=== PATIENT | female | born 1935 | race Caucasian/White ===

== ENCOUNTER → 2016-08-08 | Outpatient (CLI) | payer OTHER, BC ==
[~2016-08-08] MED LIST: ADULT LOW DOSE81 MG PO; CALCIUM 600 +1 EA15 PO; CALCIUM OR; COMBIVENT IN; COUMADIN PO; DIGOXIN125 MCG PO; DILTIAZEM 24HR360 M1 PO; DUONEB 2.5-0.5 M3 ML INH; ELIQUIS5 MG PO; FISH OIL 1,0001 EAC5 PO; FISH OIL500 M1 PO; FISHOIL PO; FLONASE 0.05%50 MCG NASAL; HYDREA 500 MG500 M1 PO; HYDROCHLOROTH12.5 MG PO; KEFLEX500 MG PO; LIPITOR10 MG PO; LIPITOR80 MG PO; LOPRESSOR25 PO; LOVENOX SQ; METHIMAZOLE5 MG PO; MIRALAX OR; MUCINEX TA600 MG/TA2 PO; NEXIUM40 MG PO; NYSTATIN SWISH PO; OMEPRAZOLE40 MG PO; PERFOROMIS20 MCG/2 M IH; PRADAXA150 MG PO; PROLASTIN IV; PROLIA60 MG/1 ML SQ; PULMICORT0.5 MG/2 M IH; RECLAST 55 MG/100 M IV; RECLAST IV; TAPAZOLE5 MG PO; TAZTIA XT360 MG PO; TOBREX5 ML OP; ULTRAM 50MG TAB50 MG PO; VENTOLIN HFA 1818 GM INH; VITAMIN B; VITAMIN D 5050000 I1 PO; XANAX 0.25 MG0.25 MG PO; ZANTAC 150MG T150 MG PO
[2016-08-08 08:00] VITALS: BP 110/72
== END ==
LOC: OPONC 02:03
DX: E88.01 Alpha-1-antitrypsin deficiency (principal)
CPT/HCPCS: 95000

== ENCOUNTER → 2016-08-22 | Outpatient (CLI) | payer OTHER, BC ==
[2016-08-22 08:00] VITALS: BP 125/77
== END ==
LOC: OPONC 03:06
DX: E88.01 Alpha-1-antitrypsin deficiency (principal)
CPT/HCPCS: 95000

== ENCOUNTER → 2016-08-29 | Outpatient (CLI) | payer OTHER, BC ==
[2016-08-29 07:42] VITALS: BP 125/74
== END ==
LOC: OPONC 02:06
DX: E88.01 Alpha-1-antitrypsin deficiency (principal)
CPT/HCPCS: 95000

== ENCOUNTER → 2016-10-17 | Outpatient (CLI) | payer OTHER, BC | LOC: OPONC 08:05 | DX: E88.01 Alpha-1-antitrypsin deficiency (principal) | CPT/HCPCS: 95000 ==

== ENCOUNTER → 2016-10-24 | Outpatient (CLI) | payer OTHER, BC ==
[2016-10-24 07:35] VITALS: BP 123/81
== END ==
LOC: OPONC 12:54
DX: E88.01 Alpha-1-antitrypsin deficiency (principal)
CPT/HCPCS: 95000

== ENCOUNTER → 2016-10-31 | Outpatient (CLI) | payer OTHER, BC ==
[~2016-10-31] MED LIST changes: +ALDACTONE25 MG PO; +LASIX 40 MG TAB40 M2 PO
[2016-10-31 07:15] VITALS: BP 131/68
== END ==
LOC: OPONC 07:07
DX: E88.01 Alpha-1-antitrypsin deficiency (principal)
CPT/HCPCS: 95000

== ENCOUNTER → 2016-11-08 | Outpatient (CLI) | payer OTHER, BC ==
[~2016-11-08] MED LIST changes: -LASIX 40 MG TAB40 M2 PO
[2016-11-08 09:01] VITALS: BP 112/55
== END ==
LOC: OPONC 10-31 12:58
DX: E88.01 Alpha-1-antitrypsin deficiency (principal)
CPT/HCPCS: 95000

== ENCOUNTER → 2016-11-14 | Outpatient (CLI) | payer OTHER, BC ==
[~2016-11-14] MED LIST changes: +LASIX 40 MG TAB40 M2 PO
[2016-11-14 07:30] VITALS: BP 114/52
== END ==
LOC: OPONC 06:25
DX: E88.01 Alpha-1-antitrypsin deficiency (principal)
CPT/HCPCS: 95000

== ENCOUNTER → 2016-11-19 | Outpatient (CLI) | payer OTHER, BC ==
[2016-11-19 07:34] VITALS: BP 124/49
== END ==
LOC: OPONC 06:45
DX: E88.01 Alpha-1-antitrypsin deficiency (principal)
CPT/HCPCS: 95000

== ENCOUNTER → 2016-11-28 | Outpatient (CLI) | payer OTHER, BC ==
[~2016-11-28] MED LIST changes: +DILTIAZEM 24HR180 M2 PO
[2016-11-28 07:38] VITALS: BP 94/60
[2016-11-28 08:30] VITALS: BP 110/60
== END ==
LOC: OPONC 06:15
DX: E88.01 Alpha-1-antitrypsin deficiency (principal)
CPT/HCPCS: 95000

== ENCOUNTER → 2016-12-05 | Outpatient (CLI) | payer OTHER, BC ==
[2016-12-05 07:20] VITALS: BP 91/58
== END ==
LOC: OPONC 07:08
DX: E88.01 Alpha-1-antitrypsin deficiency (principal)
CPT/HCPCS: 95000

== ENCOUNTER → 2016-12-11 | Outpatient (CLI) | payer OTHER, BC ==
[2016-12-11 08:15] VITALS: BP 112/65
== END ==
LOC: OPONC 08-15 13:00
DX: E88.01 Alpha-1-antitrypsin deficiency (principal)
CPT/HCPCS: 95000

== ENCOUNTER → 2016-12-19 | Outpatient (CLI) | payer OTHER, BC ==
[2016-12-19 07:30] VITALS: BP 111/47
== END ==
LOC: OPONC 09-05 13:25
DX: E88.01 Alpha-1-antitrypsin deficiency (principal)
CPT/HCPCS: 95000

== ENCOUNTER → 2016-12-26 | Outpatient (CLI) | payer OTHER, BC ==
[2016-12-26 08:14] VITALS: BP 104/65
== END ==
LOC: OPONC 06:58
DX: E88.01 Alpha-1-antitrypsin deficiency (principal)
CPT/HCPCS: 95000; 95001

== ENCOUNTER → 2017-01-02 | Outpatient (CLI) | payer OTHER, BC ==
[2017-01-02 07:25] VITALS: BP 108/57
== END ==
LOC: OPONC 12-26 09:23
DX: E88.01 Alpha-1-antitrypsin deficiency (principal)
CPT/HCPCS: 95000

== ENCOUNTER → 2017-01-09 | Outpatient (CLI) | payer OTHER, BC ==
[2017-01-09 07:25] VITALS: BP 104/51
== END ==
LOC: OPONC 09-26 13:33
DX: E88.01 Alpha-1-antitrypsin deficiency (principal)
CPT/HCPCS: 95000

== ENCOUNTER → 2017-01-16 | Outpatient (CLI) | payer OTHER, BC ==
[2017-01-16 07:38] VITALS: BP 96/50
== END ==
LOC: OPONC 02:37
DX: E88.01 Alpha-1-antitrypsin deficiency (principal)
CPT/HCPCS: 95000

== ENCOUNTER → 2017-01-23 | Outpatient (CLI) | payer OTHER, BC ==
[2017-01-23 07:43] VITALS: BP 93/52
== END ==
LOC: OPONC 01:42
DX: E88.01 Alpha-1-antitrypsin deficiency (principal)
CPT/HCPCS: 95000

== ENCOUNTER → 2017-01-30 | Outpatient (CLI) | payer OTHER, BC ==
[2017-01-30 07:42] VITALS: BP 109/53
== END ==
LOC: OPONC 00:38
DX: E88.01 Alpha-1-antitrypsin deficiency (principal)
CPT/HCPCS: 95000

== ENCOUNTER → 2017-02-06 | Outpatient (CLI) | payer OTHER, BC ==
[2017-02-06 07:30] VITALS: BP 99/48
== END ==
LOC: OPONC 01:36
DX: E88.01 Alpha-1-antitrypsin deficiency (principal)
CPT/HCPCS: 95000

== ENCOUNTER → 2017-02-13 | Outpatient (CLI) | payer OTHER, BC ==
[2017-02-13 08:00] VITALS: BP 100/54
== END ==
LOC: OPONC 02:34
DX: E88.01 Alpha-1-antitrypsin deficiency (principal)
CPT/HCPCS: 95000

== ENCOUNTER → 2017-02-20 | Outpatient (CLI) | payer OTHER, BC ==
[2017-02-20 07:37] VITALS: BP 93/51
== END ==
LOC: OPONC 00:37
DX: E88.01 Alpha-1-antitrypsin deficiency (principal); J43.9 Emphysema, unspecified
CPT/HCPCS: 95000

== ENCOUNTER → 2017-02-27 | Outpatient (CLI) | payer OTHER, BC ==
[2017-02-27 07:30] VITALS: BP 105/51
== END ==
LOC: OPONC 08:27
DX: E88.01 Alpha-1-antitrypsin deficiency (principal)
CPT/HCPCS: 95000

== ENCOUNTER → 2017-03-06 | Outpatient (CLI) | payer OTHER, BC ==
[2017-03-06 07:30] VITALS: BP 110/48
== END ==
LOC: OPONC 07:35
DX: E88.01 Alpha-1-antitrypsin deficiency (principal)
CPT/HCPCS: 95000

== ENCOUNTER → 2017-03-13 | Outpatient (CLI) | payer OTHER, BC ==
[2017-03-13 07:25] VITALS: BP 90/53
== END ==
LOC: OPONC 00:53
DX: E88.01 Alpha-1-antitrypsin deficiency (principal)
CPT/HCPCS: 95000

== ENCOUNTER → 2017-03-20 | Outpatient (CLI) | payer OTHER, BC ==
[2017-03-20 08:26] VITALS: BP 107/47
== END ==
LOC: OPONC 00:49
DX: E88.01 Alpha-1-antitrypsin deficiency (principal)
CPT/HCPCS: 95000

== ENCOUNTER → 2017-03-27 | Outpatient (CLI) | payer OTHER, BC ==
[2017-03-27 08:10] VITALS: BP 118/59
== END ==
LOC: OPONC 00:15
DX: E88.01 Alpha-1-antitrypsin deficiency (principal)
CPT/HCPCS: 95000

== ENCOUNTER → 2017-04-03 | Outpatient (CLI) | payer OTHER, BC ==
[2017-04-03 08:15] VITALS: BP 121/64
== END ==
LOC: OPONC 00:18
DX: E88.01 Alpha-1-antitrypsin deficiency (principal)
CPT/HCPCS: 95000

== ENCOUNTER → 2017-04-10 | Outpatient (CLI) | payer OTHER, BC | LOC: OPONC 08:40 | DX: E88.01 Alpha-1-antitrypsin deficiency (principal) | CPT/HCPCS: 95000 ==

== ENCOUNTER → 2017-04-17 | Outpatient (CLI) | payer OTHER, BC ==
[2017-04-17 08:15] VITALS: BP 111/51
== END ==
LOC: OPONC 07:04
DX: E88.01 Alpha-1-antitrypsin deficiency (principal)
CPT/HCPCS: 95000

== ENCOUNTER → 2017-04-24 | Outpatient (CLI) | payer OTHER, BC ==
[2017-04-24 08:00] VITALS: BP 88/56
== END ==
LOC: OPONC 01:14
DX: E88.01 Alpha-1-antitrypsin deficiency (principal)
CPT/HCPCS: 95000

== ENCOUNTER → 2017-05-01 | Outpatient (CLI) | payer OTHER, BC ==
[2017-05-01 08:30] VITALS: BP 88/46
== END ==
LOC: OPONC 01:22
DX: E88.01 Alpha-1-antitrypsin deficiency (principal)
CPT/HCPCS: 95000

== ENCOUNTER → 2017-05-08 | Outpatient (CLI) | payer OTHER, BC ==
[2017-05-08 08:00] VITALS: BP 106/50
== END ==
LOC: OPONC 00:42
DX: E88.01 Alpha-1-antitrypsin deficiency (principal)
CPT/HCPCS: 95000

== ENCOUNTER → 2017-05-14 | Outpatient (CLI) | payer OTHER, BC ==
[2017-05-14 08:30] VITALS: BP 126/60
== END ==
LOC: OPONC 00:30
DX: E88.01 Alpha-1-antitrypsin deficiency (principal)
CPT/HCPCS: 95000

== ENCOUNTER → 2017-05-21 | Outpatient (CLI) | payer OTHER, BC ==
[2017-05-21 08:10] VITALS: BP 108/60
== END ==
LOC: OPONC 02:14
DX: E88.01 Alpha-1-antitrypsin deficiency (principal)
CPT/HCPCS: 95000

== ENCOUNTER → 2017-05-31 | Outpatient (CLI) | payer OTHER, BC ==
[2017-05-31 08:25] VITALS: BP 110/60
== END ==
LOC: OPONC 05-30 13:42
DX: E88.01 Alpha-1-antitrypsin deficiency (principal)
CPT/HCPCS: 95000

== ENCOUNTER → 2017-06-05 | Outpatient (CLI) | payer OTHER, BC ==
[2017-06-05 08:30] VITALS: BP 116/75
== END ==
LOC: OPONC 00:18
DX: E88.01 Alpha-1-antitrypsin deficiency (principal)
CPT/HCPCS: 95000

== ENCOUNTER → 2017-06-26 | Outpatient (CLI) | payer OTHER, BC ==
[2017-06-26 08:05] VITALS: BP 103/56
== END ==
LOC: OPONC 01:02
DX: E88.01 Alpha-1-antitrypsin deficiency (principal)
CPT/HCPCS: 95000

== ENCOUNTER → 2017-07-03 | Outpatient (CLI) | payer OTHER, BC ==
[2017-07-03 08:10] VITALS: BP 114/56
== END ==
LOC: OPONC 00:14
DX: E88.01 Alpha-1-antitrypsin deficiency (principal)
CPT/HCPCS: 95000

== ENCOUNTER → 2017-07-17 | Outpatient (CLI) | payer OTHER, BC ==
[2017-07-17 08:23] VITALS: BP 107/53
== END ==
LOC: OPONC 00:13
DX: E88.01 Alpha-1-antitrypsin deficiency (principal); J43.8 Other emphysema
CPT/HCPCS: 95000

== ENCOUNTER → 2017-07-24 | Outpatient (CLI) | payer OTHER, BC ==
[2017-07-24 08:45] VITALS: BP 109/64
== END ==
LOC: OPONC 00:17
DX: E88.01 Alpha-1-antitrypsin deficiency (principal); J43.8 Other emphysema
CPT/HCPCS: 95000

== ENCOUNTER → 2017-07-31 | Outpatient (CLI) | payer OTHER, BC ==
[~2017-07-31] MED LIST changes: -ALDACTONE25 MG PO; +MIRALAX17 GM PO; +SPIRONOLACTONE25 M1 PO
[2017-07-31 08:20] VITALS: BP 120/64
== END ==
LOC: OPONC 00:14
DX: E88.01 Alpha-1-antitrypsin deficiency (principal); J43.8 Other emphysema
CPT/HCPCS: 95000

== ENCOUNTER → 2017-08-07 | Outpatient (CLI) | payer OTHER, BC ==
[2017-08-07 08:20] VITALS: BP 128/61
== END ==
LOC: OPONC 01:25
DX: E88.01 Alpha-1-antitrypsin deficiency (principal); J43.8 Other emphysema
CPT/HCPCS: 95000

== ENCOUNTER → 2017-08-14 | Outpatient (CLI) | payer OTHER, BC ==
[2017-08-14 08:22] VITALS: BP 120/56
== END ==
LOC: OPONC
DX: E88.01 Alpha-1-antitrypsin deficiency (principal); J43.8 Other emphysema
CPT/HCPCS: 95000; 95113

== ENCOUNTER → 2017-08-21 | Outpatient (CLI) | payer OTHER, BC ==
[2017-08-21 08:20] VITALS: BP 123/58
== END ==
LOC: OPONC 01:00
DX: E88.01 Alpha-1-antitrypsin deficiency (principal); J43.8 Other emphysema
CPT/HCPCS: 95000

== ENCOUNTER → 2017-08-28 | Outpatient (CLI) | payer OTHER, BC ==
[2017-08-28 08:10] VITALS: BP 102/57
== END ==
LOC: OPONC 00:34
DX: E88.01 Alpha-1-antitrypsin deficiency (principal); J43.8 Other emphysema
CPT/HCPCS: 95000

== ENCOUNTER → 2017-09-04 | Outpatient (CLI) | payer OTHER, BC ==
[2017-09-04 08:35] VITALS: BP 115/44
== END ==
LOC: OPONC 02:05
DX: E88.01 Alpha-1-antitrypsin deficiency (principal); J43.8 Other emphysema
CPT/HCPCS: 95000

== ENCOUNTER → 2017-09-11 | Outpatient (CLI) | payer OTHER, BC ==
[2017-09-11 08:10] VITALS: BP 98/53
== END ==
LOC: OPONC 02:16
DX: E88.01 Alpha-1-antitrypsin deficiency (principal); J43.8 Other emphysema
CPT/HCPCS: 95000

== ENCOUNTER → 2017-09-18 | Outpatient (CLI) | payer OTHER, BC ==
[2017-09-18 08:10] VITALS: BP 132/61
== END ==
LOC: OPONC 00:46
DX: E88.01 Alpha-1-antitrypsin deficiency (principal); J43.8 Other emphysema
CPT/HCPCS: 95000

== ENCOUNTER → 2017-09-25 | Outpatient (CLI) | payer OTHER, BC | LOC: OPONC 00:16 | DX: E88.01 Alpha-1-antitrypsin deficiency (principal) | CPT/HCPCS: 95000 ==

== ENCOUNTER → 2017-10-02 | Outpatient (CLI) | payer OTHER, BC ==
[2017-10-02 08:25] VITALS: BP 98/60
== END ==
LOC: OPONC 01:41
DX: E88.01 Alpha-1-antitrypsin deficiency (principal)
CPT/HCPCS: 95000

== ENCOUNTER → 2017-10-10 | Outpatient (CLI) | payer OTHER, BC ==
[2017-10-10 08:30] VITALS: BP 110/55
== END ==
LOC: OPONC 01:41
DX: E88.01 Alpha-1-antitrypsin deficiency (principal)
CPT/HCPCS: 95000

== ENCOUNTER → 2017-10-16 | Outpatient (CLI) | payer OTHER, BC ==
[2017-10-16 08:20] VITALS: BP 106/55
== END ==
LOC: OPONC 08:20
DX: E88.01 Alpha-1-antitrypsin deficiency (principal)
CPT/HCPCS: 95000

== ENCOUNTER → 2017-10-23 | Outpatient (CLI) | payer OTHER, BC ==
[2017-10-23 08:06] VITALS: BP 108/74
== END ==
LOC: OPONC 00:51
DX: E88.01 Alpha-1-antitrypsin deficiency (principal)
CPT/HCPCS: 95000

== ENCOUNTER → 2017-10-30 | Outpatient (CLI) | payer OTHER, BC ==
[2017-10-30 08:15] VITALS: BP 121/79
== END ==
LOC: OPONC 00:15
DX: E88.01 Alpha-1-antitrypsin deficiency (principal)
CPT/HCPCS: 95000

== ENCOUNTER → 2017-11-06 | Outpatient (CLI) | payer OTHER, BC ==
[~2017-11-06] MED LIST changes: +ALDACTONE25 MG PO; -MIRALAX17 GM PO; -SPIRONOLACTONE25 M1 PO
[2017-11-06 08:18] VITALS: BP 124/57
== END ==
LOC: OPONC 00:26
DX: E88.01 Alpha-1-antitrypsin deficiency (principal)
CPT/HCPCS: 95000

== ENCOUNTER → 2017-11-13 | Outpatient (CLI) | payer OTHER, BC ==
[2017-11-13 08:20] VITALS: BP 108/59
== END ==
LOC: OPONC 00:42
DX: E88.01 Alpha-1-antitrypsin deficiency (principal)
CPT/HCPCS: 95000

== ENCOUNTER → 2017-11-18 | Outpatient (CLI) | payer OTHER, BC ==
[2017-11-18 08:20] VITALS: BP 112/63
== END ==
LOC: OPONC 01:52
DX: E88.01 Alpha-1-antitrypsin deficiency (principal)
CPT/HCPCS: 95000

== ENCOUNTER → 2017-11-26 | Outpatient (CLI) | payer OTHER, BC ==
[2017-11-26 08:51] VITALS: BP 121/88
== END ==
LOC: OPONC 00:33
DX: E88.01 Alpha-1-antitrypsin deficiency (principal)
CPT/HCPCS: 95000

== ENCOUNTER → 2017-12-11 | Outpatient (CLI) | payer OTHER, BC ==
[2017-12-11 08:10] VITALS: BP 110/56
== END ==
LOC: OPONC 00:15
DX: E88.01 Alpha-1-antitrypsin deficiency (principal)
CPT/HCPCS: 95000

== ENCOUNTER → 2017-12-25 | Outpatient (CLI) | payer OTHER, BC ==
[2017-12-25 07:40] VITALS: BP 113/57
== END ==
LOC: OPONC 00:14
DX: E88.01 Alpha-1-antitrypsin deficiency (principal)
CPT/HCPCS: 95000

== ENCOUNTER → 2018-01-01 | Outpatient (CLI) | payer OTHER, BC ==
[2018-01-01 08:15] VITALS: BP 101/65
== END ==
LOC: OPONC 00:19
DX: E88.01 Alpha-1-antitrypsin deficiency (principal)
CPT/HCPCS: 95000

== ENCOUNTER → 2018-01-08 | Outpatient (CLI) | payer OTHER, BC ==
[2018-01-08 08:00] VITALS: BP 116/59
== END ==
LOC: OPONC 08:45
DX: E88.01 Alpha-1-antitrypsin deficiency (principal)
CPT/HCPCS: 95000

== ENCOUNTER → 2018-01-15 | Outpatient (CLI) | payer OTHER, BC ==
[2018-01-15 08:11] VITALS: BP 115/61
== END ==
LOC: OPONC 07:46
DX: E88.01 Alpha-1-antitrypsin deficiency (principal)
CPT/HCPCS: 95000

== ENCOUNTER → 2018-01-22 | Outpatient (CLI) | payer OTHER, BC ==
[2018-01-22 08:05] VITALS: BP 117/54
== END ==
LOC: OPONC 01:26
DX: E88.01 Alpha-1-antitrypsin deficiency (principal)
CPT/HCPCS: 95000

== ENCOUNTER → 2018-01-29 | Outpatient (CLI) | payer OTHER, BC ==
[2018-01-29 07:55] VITALS: BP 121/80
== END ==
LOC: OPONC 01:00
DX: E88.01 Alpha-1-antitrypsin deficiency (principal)
CPT/HCPCS: 95000

== ENCOUNTER → 2018-03-12 | Outpatient (CLI) | payer OTHER, BC ==
[2018-03-12 08:35] VITALS: BP 129/56
== END ==
LOC: OPONC 01:11
DX: E88.01 Alpha-1-antitrypsin deficiency (principal)
CPT/HCPCS: 95000

== ENCOUNTER → 2018-03-19 | Outpatient (CLI) | payer OTHER, BC ==
[~2018-03-19] MED LIST changes: -ALDACTONE25 MG PO; +MIRALAX17 GM PO; +SPIRONOLACTONE25 M1 PO
[2018-03-19 08:10] VITALS: BP 126/62
== END ==
LOC: OPONC 02:56
DX: E88.01 Alpha-1-antitrypsin deficiency (principal)
CPT/HCPCS: 95000

== ENCOUNTER → 2018-04-23 | Outpatient (CLI) | payer OTHER, BC ==
[2018-04-23 08:20] VITALS: BP 132/60
== END ==
LOC: OPONC 00:26 → EDSTATUS 08:25 → OPONC 13:08
DX: E88.01 Alpha-1-antitrypsin deficiency (principal)
CPT/HCPCS: 95000

== ENCOUNTER → 2018-04-30 | Outpatient (CLI) | payer OTHER, BC ==
[2018-04-30 08:24] VITALS: BP 92/62
== END ==
LOC: OPONC 00:13
DX: E88.01 Alpha-1-antitrypsin deficiency (principal)
CPT/HCPCS: 95000

== ENCOUNTER → 2018-05-07 | Outpatient (CLI) | payer OTHER, BC ==
[2018-05-07 08:15] VITALS: BP 122/57
== END ==
LOC: OPONC 07:55
DX: E88.01 Alpha-1-antitrypsin deficiency (principal)
CPT/HCPCS: 95000

== ENCOUNTER → 2018-05-14 | Outpatient (CLI) | payer OTHER, BC ==
[2018-05-14 08:00] VITALS: BP 116/53
== END ==
LOC: OPONC 00:25
DX: E88.01 Alpha-1-antitrypsin deficiency (principal)
CPT/HCPCS: 95000

== ENCOUNTER → 2018-05-21 | Outpatient (CLI) | payer OTHER, BC ==
[2018-05-21 08:15] VITALS: BP 134/61
== END ==
LOC: OPONC 00:53
DX: E88.01 Alpha-1-antitrypsin deficiency (principal)
CPT/HCPCS: 95000

== ENCOUNTER → 2018-05-27 | Outpatient (CLI) | payer OTHER, BC | LOC: ULTRA 07:40 | DX: N28.1 Cyst of kidney, acquired (principal); D73.89 Other diseases of spleen; K76.89 Other specified diseases of liver; N85.8 Other specified noninflammatory disorders of uterus ==

== ENCOUNTER → 2018-05-28 | Outpatient (CLI) | payer OTHER, BC ==
[2018-05-28 08:20] VITALS: BP 127/57
== END ==
LOC: OPONC 00:21
DX: E88.01 Alpha-1-antitrypsin deficiency (principal)
CPT/HCPCS: 95000

== ENCOUNTER → 2018-06-04 | Outpatient (CLI) | payer OTHER, BC ==
[2018-06-04 08:07] VITALS: BP 129/54
== END ==
LOC: OPONC 00:54
DX: E88.01 Alpha-1-antitrypsin deficiency (principal)
CPT/HCPCS: 95000

== ENCOUNTER → 2018-06-11 | Outpatient (CLI) | payer OTHER, BC ==
[2018-06-11 08:05] VITALS: BP 108/60
== END ==
LOC: OPONC 02:43
DX: E88.01 Alpha-1-antitrypsin deficiency (principal)
CPT/HCPCS: 95000

== ENCOUNTER → 2018-06-18 | Outpatient (CLI) | payer OTHER, BC | LOC: OPONC 01:05 | DX: E88.01 Alpha-1-antitrypsin deficiency (principal) | CPT/HCPCS: 95000 ==

== ENCOUNTER → 2018-06-25 | Outpatient (CLI) | payer OTHER, BC ==
[2018-06-25 08:11] VITALS: BP 103/52
== END ==
LOC: OPONC 07:59
DX: E88.01 Alpha-1-antitrypsin deficiency (principal)
CPT/HCPCS: 95000

== ENCOUNTER → 2018-07-01 | Outpatient (CLI) | payer OTHER, BC ==
[2018-07-01 08:40] VITALS: BP 129/57
== END ==
LOC: OPONC 08:26
DX: E88.01 Alpha-1-antitrypsin deficiency (principal)
CPT/HCPCS: 95000

== ENCOUNTER → 2018-07-09 | Outpatient (CLI) | payer OTHER, BC ==
[2018-07-09 08:15] VITALS: BP 116/52
== END ==
LOC: OPONC 00:22
DX: E88.01 Alpha-1-antitrypsin deficiency (principal)
CPT/HCPCS: 95000

== ENCOUNTER → 2018-07-16 | Outpatient (CLI) | payer OTHER, BC ==
[2018-07-16 08:20] VITALS: BP 125/49
== END ==
LOC: OPONC 00:46
DX: E88.01 Alpha-1-antitrypsin deficiency (principal)
CPT/HCPCS: 95000

== ENCOUNTER → 2018-07-23 | Outpatient (CLI) | payer OTHER, BC ==
[2018-07-23 08:06] VITALS: BP 131/65
== END ==
LOC: OPONC 07:31
DX: E88.01 Alpha-1-antitrypsin deficiency (principal)
CPT/HCPCS: 95000

== ENCOUNTER → 2018-07-30 | Outpatient (CLI) | payer OTHER, BC ==
[2018-07-30 08:10] VITALS: BP 117/73
--- NOTE | 2018-07-30 09:05 | NUR ---
HERE FOR WEEKLY PROLASTIN C INFUSION. REPORTS DOING THE SAME. DID USE HER VEST AND NEBULIZER TODAY PRIOR TO ARRIVAL. REPORTS LOTS OF MUCOUS PRODUCTION AND NEED TO CLEAR THIS IN THE MORNINGS THEN REST OF THE DAY IS BETTER. DYSPNEIC UPON ARRIVAL HAVING WALKED IN WITHOUT O2. SAT ONLY 80% BUT QUICKLY RECOVERED ON 2L. ENCOURAGED PT TO START TRAVELING WITH HER O2. STATES SHE IS GETTING A NEW PORTABLE TANK SYSTEM SOON WHICH WILL MAKE THIS EASIER BUT ADMITS TO NOT WANTING TO TAKE THIS NEXT STEP WHERE SHE NEEDS TO TAKE O2 WITH HER EVERYWHERE SHE GOES. A LITTLE TEARY THIS MORNING TALKING ABOUT HER SERGE GATHERING WITH HER FAMILY AND HOW SHE FELT THAT IT WOULD BE HER LAST. MUCH SUPPORT SHARED. PT TOLERATED INFUSION WITHOUT INCIDENT AND DISMISSED IN STABLE CONDITION. SCHEDULED TO RETURN AGAIN NEXT WEEK.
== END ==
LOC: OPONC 00:17
DX: E88.01 Alpha-1-antitrypsin deficiency (principal)
CPT/HCPCS: 95000

== ENCOUNTER → 2018-08-06 | Outpatient (CLI) | payer OTHER, BC ==
[2018-08-06 08:20] VITALS: BP 128/50
--- NOTE | 2018-08-06 09:00 | NUR ---
HERE FOR WEEKLY PROLASTIN C INFUSION. REPORTS DOING THE SAME, NO NEW CONCERNS. USING VEST AND NEBULIZER, WEARING O2 ALL NIGHT AND AT TIMES DURING THE DAY. ARRIVED TODAY WITHOUT O2 AND RECOVERED QUICKLY ON ROOM AIR TO 94% AT REST. TOLERATED INFUSION WITHOUT INCIDENT. DISMISSED IN STABLE CONDITION. WILL RETURN AGAIN NEXT WEEK.
== END ==
LOC: OPONC 01:12
DX: E88.01 Alpha-1-antitrypsin deficiency (principal)
CPT/HCPCS: 95000

== ENCOUNTER → 2018-08-13 | Outpatient (CLI) | payer OTHER, BC ==
[2018-08-13 08:30] VITALS: BP 107/50
--- NOTE | 2018-08-13 09:28 | NUR ---
HERE FOR WEEKLY PROLASTIN C INFUSION. REPORTS DOING THE SAME. STILL WITH EXERTIONAL DYSPNEA, USING HER PORTABLE O2 NOW AT 2L WHEN GETTING OUT OF THE HOUSE. USES O2 AT NIGHT TO SLEEP WELL. USES NEBULIZER AND VIBRATION VEST WHICH HELPS IN THE MORNING TO CLEAR MUCOUS BUILD UP. TOLERATED INFUSION TODAY WITHOUT INCIDENT. DISMISSED IN STABLE CONDITION.
== END ==
LOC: OPONC 08-12 11:36
DX: E88.01 Alpha-1-antitrypsin deficiency (principal)
CPT/HCPCS: 95000

== ENCOUNTER → 2018-08-20 | Outpatient (CLI) | payer OTHER, BC ==
[2018-08-20 08:10] VITALS: BP 120/49
--- NOTE | 2018-08-20 09:00 | NUR ---
HERE FOR WEEKLY PROLASTIN C INFUSION. REPORTS MORE EXERTIONAL DYSPNEA TODAY THAN IN PAST. STATES JUST HARD TO GET GOING IN THE MORNINGS SHE HAS TO CLEAR AIRWAY FROM SLEEPING AT NIGHT. STILL USING VIBRATION VEST, FLUTTER VALVE, NEBULIZER. TRYING TO GET EXERCISES IN. DISCOURAGED AND FRIGHTENED ABOUT WHAT HER FUTURE HOLDS. EMOTIONAL SUPPORT AND ENCOURAGEMENT GIVEN. PT TOLERATED INFUSION WITHOUT INCIDENT. DISMISSED TODAY WITH VOLUNTEER PER WHEELCHAIR. DRIVING PT HOME AFTER [place]ON[employer]DS FOR COFFEE WITH FRIENDS.
== END ==
LOC: OPONC 03:05
DX: E88.01 Alpha-1-antitrypsin deficiency (principal)
CPT/HCPCS: 95000

== ENCOUNTER 2018-08-27 07:01 | Inpatient (IN) | payer OTHER, BC ==
[~2018-08-27] VITALS: Ht 157.5 cm; Wt 47.6 kg
[2018-08-27 07:05] VITALS: BP 168/109
[2018-08-27 07:32] LABS: ABSOLUTE NEUTROPHILS 5.6 thou/uL (1.4-8.2); BASOPHILS 0.7 % (0.0-2.0); EOSINOPHILS 6.1 % (0.0-3.0); HEMATOCRIT 38.4 % (37.0-47.0); HEMOGLOBIN 12.8 gm/dL (12.0-15.0); LYMPHOCYTES 15.6 % (24.0-44.0); MCH 35.7 pg (26.0-34.0); MCHC 33.4 g/dL (28.0-37.0); MCV 106.8 fL (80.0-100.0); MONOCYTES 5.1 % (1.0-8.0); PLATELET COUNT 300 thou/uL (150-400); POLYS 72.5 % (36.0-66.0); RDW 15.8 % (10.5-14.5); WBC 7.7 thou/uL (4.0-11.0)
[2018-08-27 07:46] LABS: ANION GAP 5 mmol/L (7-16); BUN 31 mg/dL (7-18); CHLORIDE 106 mmol/L (98-107); CO2 31 mmol/L (21-32); CREATININE 0.9 mg/dL (0.6-1.0); GLUCOSE 137 mg/dL (74-106); POTASSIUM 4.5 mmol/L (3.5-5.1)
[2018-08-27 07:47] LABS: SODIUM 142 mmol/L (136-145)
[2018-08-27 07:54] LABS: ALBUMIN 3.8 g/dL (3.4-5.0); SGOT 36 U/L (15-37); SGPT 40 U/L (30-65); TOTAL BILIRUBIN 0.5 mg/dL (<0.1-1.0); TOTAL PROTEIN 7.4 g/dL (6.4-8.2); TROPONIN-I <0.06 ng/mL (<0.06)
[2018-08-27 09:01] VITALS: BP 119/53
--- NOTE | 2018-08-27 09:03 | NUR ---
HAND OFF PRINTED TO 4W
--- NOTE | 2018-08-27 09:16 | NUR ---
ADAM CABALLERO RN, STATES SHE DID NOT GET HANDOFF-REFAXED NOW AND REQUESTED SHE CALL SOON SHE RECEIVES IT
[2018-08-27 09:17] LABS: MACROCYTES 2+; POIKILOCYTOSIS SLIGHT; POLYCHROMASIA OCCASIONAL
[2018-08-27 09:18] VITALS: BP 121/61
[2018-08-27] MEDS ORDERED: NORCO 5-325 TA1 EACH PO (09:32)
[2018-08-27] MEDS ORDERED: OMEPRAZOLE40 MG PO (09:32)
[2018-08-27] MEDS ORDERED: CALCITONIN-SAL3.7 ML NASAL (09:33)
[2018-08-27] MEDS ORDERED: PROLASTIN C1000 MG IV (09:39)
[2018-08-27] MEDS ORDERED: TESSALON PERLE100 MG PO (09:40)
[2018-08-27] MEDS ORDERED: DULCOLAX5 MG PO (09:42)
[2018-08-27] MEDS ORDERED: PEPCID20 MG PO (09:43)
[2018-08-27] MEDS ORDERED: CALCIUM WITH V1 EAC1 PO (09:44)
[2018-08-27 09:45] VITALS: BP 137/67
[2018-08-27] MEDS ORDERED: TYLENOL EXTRA500 MG PO (09:45)
--- NOTE | 2018-08-27 12:30 | NUR ---
ASSUMED CARE OF PT AT 09:45. ARRIVED TO UNIT FROM ED IN STABLE CONDITION. JUAN JOSE AT BEDSIDE. ORIENTED TO ROOM AND CALL LIGHT. BELONGINGS DOCUMENTED - CLOTHES, CELL PHONE, AND PURSE THAT WILL TAKE HOME. NO MEDS FROM HOME. ADMISSION ASSESSMENT COMPLETED. A&O,X4. ANXIOUS AND TEARFUL AT TIMES. DENIES PAIN. C/O SOA AND TROUBLE BREATHING AT HOME. [address], HOME OXYGEN USE USUALLY 2 L NC. AUDIBLE WHEEZES AND COUGH NOTED. LUNG SOUNDS WHEEZES AND RHONCHI. REGULAR HEART SOUNDS. ACTIVE BOWEL SOUNDS, LAST BM TODAY BEFORE ADMISSION. SKIN INTACT. PT REPORTS RASH AROUND BRA LINE. NO EDEMA. WILL CONTINUE TO MONITOR.
[2018-08-27 15:25] VITALS: BP 129/77
--- NOTE | 2018-08-27 16:30 | EKG ---
[address] [place] [address] ELECTROCARDIOGRAM REPORT Name: DONALDO DORSEY Room #: 449-I ADM IN M.R.#: [id number] Admission: 08/27/18 Attend Phys: Mark Lee MD Discharge: Date of : 37 Report #: [id number] THIS REPORT FOR: //name// [facility] ED Test Date: 2018-08-27 Test Time: 08:18:01 Pat Name: DONALDO DORSEY Department: Room: [facility] Gender: F Admitting Officer: Radames BRANHAM RN : [id number] Requested By: [place] Order Number: [id number] MD: James Reich Measurements Intervals [place] Rate: 77 P: 154 NV: 208 QRS: 35 QRSD: 94 T: 62 QT: 353 QTc: 400 Interpretive Statements Sinus or ectopic atrial rhythm Ventricular premature complex Low voltage, extremity and precordial leads Compared to ECG 11/24/2012 16:51:26 Electronically Signed On 08-27-2018 16:29:48 [employer] by James Reich [email or web address] <ELECTRONICALLY SIGNED> By: James Reich MD 08/27/18 1629 7 7 James Reich MD /MELLISSA
--- NOTE | 2018-08-27 19:38 | NUR ---
END OF SHIFT. FAMILY AT BEDSIDE THROUGHOUT THE DAY. PT STILL C/O SOA. [address] WHEEZES NOTED. VSS. DENIES PAIN. NO OTHER CHANGE IN STATUS NOTED.
[2018-08-27 21:18] VITALS: BP 121/71
[2018-08-28 04:52] VITALS: BP 141/81
--- NOTE | 2018-08-28 06:55 | NUR ---
Assumed care at 1845. Pt resting in bed with family at bedside. Denies SOA. She requested xanax before bed time. No identified needs at the moment. Call light within reach. Will continue to monitor.
[2018-08-28 08:05] VITALS: BP 144/94
--- NOTE | 2018-08-28 09:24 | NUR ---
ASSUMED PT CARE AT 0700. ASSESSED PT AT 0915. PT AWAKE IN BED EATING BREAKFAST. ALERT/ORIENTED X4. FAMILY AT BEDSIDE. PT STATES SHE FEELS HER BREATHING IS LABORED. DOES APPEAR SLIGHTLY LABORED. O2 AT 3L PER NC SAT 95%. PT REPORTS PRODUCTIVE COUGH PRODUCING CLEAR SPUTUM THIS MORNING. DENIES PAIN. VITAL SIGNS STABLE ASSESSMENT DONE AND IS CHARTED. LUNGS WITH COURSE WHEEZES UPON EXPIRATION. PT REQUESTED COLACE SHE TAKES AT HOME. WILL NOTIFY PHYSICIAN. OTHERWISE WILL CONTINUE WITH CURRENT CARE.
[2018-08-28] MEDS ORDERED: DIGOXIN125 MCG PO (11:02)
[2018-08-28] MEDS ORDERED: COLACE100 MG PO (11:07)
--- NOTE | 2018-08-28 14:28 | NUR ---
PT DOING WELL THIS SHIFT. UP IN CHAIR VISITING WITH FAMILY AT THIS TIME. APPEARS IN NO ACUTE DISTRESS. STILL ON 02 3L NC. WILL CONTINUE CURRENT CARE.
--- NOTE | 2018-08-28 16:04 | NUR ---
PT ADMITTED RELATED TO SHORTNESS OF BREATH. CM REVIEWED CHART AND SPOKE WITH CARE TEAM. CM MET WITH PT AND SPOUSE AT BEDSIDE THIS DAY. PT IS A&O X4. CM ROLE INTRODUCED. PT INDICATED SHE LIVES IN A HOUSE WITH HER SPOUSE WITH 2 STEPS TO ENTER WITH BL HANDRAILS. PT INDICATED NO STEPS INSIDE. PT INDICATED SHE HAD BEEN INDEPENDET WITH GAIT AND ADLS [employer]. SHE HAS A FWW SHOULD SHE NEEDS IT AND HAS HOME O2 AT 2L [employer] AND A NEBULIZER THROUGH [facility]. PT INDICATED SHE HAD HH SERVICES YEARS AGO BUT NOTHING RECENTLY. PT IS RECEPTIVE TO HOME HEALTH OR POST ACUTE CARE STAY IF INDICATED. CM TO FOLLOW INDICATED WITH DC PLANNING.
[2018-08-28 16:07] VITALS: BP 119/56
--- NOTE | 2018-08-28 17:52 | NUR ---
PT CONTINUES TO DO WELL. UP AND AROUND IN ROOM WITH FAMILY AT BEDSIDE. DOES NOT APPEAR IN ANY ACUTE DISTRESS. PT STILL DECIDING IF SHE WANTS TO MOVE TO SENIOR SUITES. NO NEW CONCERNS AT THIS TIME.
[2018-08-28 20:00] VITALS: BP 131/72
--- NOTE | 2018-08-29 05:08 | NUR ---
Assumed care at 1845. Pt resting in bed with family at bedside. They still discussing the possibility of moving to SICU. Pt denies any episode of SOA. She stated she doesnt want to be waken up for vitals. Vitals are a stable no identified needs at the moment. Call light within reach. Will continue to monitor.
[2018-08-29 07:45] VITALS: BP 137/78
[2018-08-29 07:56] LABS: HEMATOCRIT 38.9 % (37.0-47.0); HEMOGLOBIN 12.7 gm/dL (12.0-15.0); MCH 35.2 pg (26.0-34.0); MCHC 32.6 g/dL (28.0-37.0); RBC 3.61 mil/uL (4.20-5.00); RDW 16.1 % (10.5-14.5); WBC 10.5 thou/uL (4.0-11.0)
[2018-08-29 08:11] LABS: CALCIUM 9.5 mg/dL (8.5-10.1); CREATININE 0.9 mg/dL (0.6-1.0); POTASSIUM 4.4 mmol/L (3.5-5.1); TOTAL BILIRUBIN 0.4 mg/dL (<0.1-1.0); TOTAL PROTEIN 7.1 g/dL (6.4-8.2)
[2018-08-29 14:38] VITALS: BP 132/73
--- NOTE | 2018-08-29 14:46 | NUR ---
PATIENT ARRIVED TO SENIOR SUITES AT 1430 TO ROOM 225 FROM 449.PATIENT WAS ORIENTED TO ROOM. VITALS WERE TAKEN.PATIENT WAS PLACED IN BED.FAMILY IS AT BEDSIDE.CALL LIGHT,PHONE, AND PERSONAL BELONGINGS ARE WITHIN REACH.
[2018-08-29 19:38] VITALS: BP 130/66
--- NOTE | 2018-08-30 04:44 | NUR ---
PATIENT ALERT AND ORIENTED X4. UP WITH WALKER AND ONE ASSIST. DENIES PAIN. REQUESTED XANAX FOR BEDTIME. 02NC, NOT MUCH SOA NOTED WITH EXERTION. FAMILY AT BEDSIDE IN EARLY EVENING. STAYED LATE BUT NOT THROUGH THE NIGHT. RESTING QUIETLY AT TIME OF NOTE. WILL MONITOR.
[2018-08-30 07:13] LABS: ADENOVIRUS Negative (Negative); INFLUENZA A Negative (Negative); INFLUENZA B Negative (Negative); METAPNEUMOVIRUS Negative (Negative); PARAINFLUENZA 1 Negative (Negative); PARAINFLUENZA 2 Negative (Negative); PARAINFLUENZA 3 Negative (Negative); RHINOVIRUS Negative (Negative); RSV A Negative (Negative); RSV B Negative (Negative)
[2018-08-30 10:05] VITALS: BP 118/61
--- NOTE | 2018-08-30 13:58 | NUR ---
[facility], PATIENT ALERT AND ORIENTED X 4. UP WITH ASSIST X 1 WITH WALKER/OXYGEN. PATIENT DENIES PAIN THIS AM. PATIENT HAS O2 AT 2.5 LITERS/NC IN PLACE, BILATERAL LUNGS CLEAR/DIMINISHED. PATIENT HAS NON-PRODUCTIVE COUGH. PATIENT HAS LEFT FOREARM IV IN PLACE, PATIENT RECEIVING IV SOLU MEDROL. WILL CONTINUE TO MONITOR.
[2018-08-30 19:25] VITALS: BP 123/66
--- NOTE | 2018-08-31 06:38 | NUR ---
PATIENT ALERT AND ORIENTED X4. UP WITH WALKER INDEPENDENTLY. DENIES PAIN. 02NC WITH SOME SOA UPON EXERTION. STATED THAT SHE HAS SLEPT VERY GOOD HERE IN THE HOSPITAL AND FEELS RESTED. NO RESULTS FROM LAXATIVE GIVEN YESTERDAY AT TIME OF NOTE. FAMILY AT BEDSIDE IN EARLY EVENING. RESTING QUIETLY. WILL MONITOR.
[2018-08-31 10:01] VITALS: BP 144/55
[2018-08-31 10:35] VITALS: BP 144/55
[2018-08-31 19:32] VITALS: BP 150/79
--- NOTE | 2018-09-01 05:28 | NUR ---
PATIENT ALERT AND ORIENTED X4. UP ADLIB WITH WALKER IN ROOM AND HALLWAY. DENIES PAIN. 02NC 2.5 TO 3L WITH SOME SOA NOTED WITH EXERTION. BS MONITORED PER ORDER. LAXATIVE GIVEN WITH NO RESULTS DURING THE NIGHT - NO BM SINCE 08/28/18, PREVIOUS LAXATIVES GIVEN. FAMILY AT BEDSIDE IN EARLY EVENING. POSSIBLE DISCHARGE TODAY. WILL MONITOR.
[2018-09-01 08:00] VITALS: BP 164/81
--- NOTE | 2018-09-01 09:05 | NUR ---
PT IS A&0X4, ONLY SLIGHTLY KASHIA, AMB AT HOME W/O WALKER, HERE W/WALKER PRECAUTIONARY, ONLY SLIGHTLY SOA W/EXERTION, WAS AMB IN THE ROOM TO HELP ALONG BOWELS. MAG CITRATE ORDERED, NOT YET AVAILABLE, WILL WAIT AN HOUR AFTER BREAKFAST TO AVOID NAUSEA AND FEELING OF EXCESS FULLNESS. FAMILY AT BEDSIDE, NO SKIN ISSUES, RA. ENCOURAGED ALL TO USE CALL LIGHT FOR ANY NEEDS
--- NOTE | 2018-09-01 12:13 | NUR ---
PT HAS MUCH FAMILY VISITING, THANKED THEM FOR THEIR SUPPORT AND ENCOURAGED PT, IF TIRED, TO NOT ENTERTAIN AND JUST REST. SHE'S IN [employer], HAS AMB IN THE HALLWAY SEVERAL TIMES, STEADY GAIT W/WALKER AND FAMILY. MAG CIT GIVEN ONCE AVAILABLE [place]ETTA [place]GEL
--- NOTE | 2018-09-01 15:49 | NUR ---
Following for d/c planning needs. Pt had questions re: obtaining outpatient infusion on day of discharge. Spoke with Director of Case Management. Pt will need to come back in on Saturday to obtain her OP infusion. Pt and family in agreement.
[2018-09-01 19:37] VITALS: BP 151/79
--- NOTE | 2018-09-02 03:12 | NUR ---
Pt A/OX4,up with SBA/RW. Denies pain on assessment. No GLOVER,has a lose cough with no sputum reported and on RA. VSS.Voiding in the bathroom with no problems. Pt is on a nocturnal oxygen desat study sats in the mid 90's,resting with no distress noted. Medicated with Xanax at HS per request.Did decline taking HS Colace stating she had several BM's during the day. Resting quietly eyes closed at this time no distress noted will continue to monitor pt. Call light/personal items within reach.
[2018-09-02 07:40] VITALS: BP 150/84
[2018-09-02] MEDS ORDERED: LEVAQUIN 750 M750 MG PO (07:47)
[2018-09-02] MEDS ORDERED: ALPRAZOLAM 0.50.5 M1 PO (07:48)
[2018-09-02] MEDS ORDERED: PULMICORT0.5 MG/21 INH (07:49)
[2018-09-02] MEDS ORDERED: PREDNISONE 20 M20 M1 PO (07:50)
--- NOTE | 2018-09-02 08:40 | NUR ---
ASSUMED PT CARE AT 0700. ASSESSMENT COMPLETED AND IS CHARTED. VITAL SIGNS STABLE. UNABLE TO OBTAIN TEMPERATURE DESPITE 3 MACHINES USED. PT IS ALERT/ORIENTED X4. DENIES PAIN, SHORTNESS OF BREATH. O2 AT ROOM AND SAT IS 96%. DISCHARGE ORDERS RECEIVED. AWAITING OVERNIGHT OXYGEN STUDY.
[2018-09-02 09:44] VITALS: BP 150/84
--- NOTE | 2018-09-02 10:10 | NUR ---
DISCHARGE NOTE: SW received call from nursing stating that pt has discharge orders and has a script for a roller walker. SW notified [facility] liaison who will deliver walker to pt prior to discharge. EDMUND reviewed chart. Pt will have her outpatient infusion of Prolastin at the [facility] outpatient infusion clinic. EDMUND spoke with Lolis in the outpatient clinic to confirm. Pt will come in on to receive weekly dose. Pt has a standing order for the infusion. Lolis to coordinate time of infusion with pt. Pt's family will provide transportation home. Contact number for [facility] placed in pt's discharge summary. No additional SW needs identified at this time, but is available to assist should needs arise.
--- NOTE | 2018-09-02 10:30 | NUR ---
DISMISSED PT IN STABLE CONDITION TO HOME VIA WHEELCHAIR.
== END 2018-09-02 10:44 | disposition home or self-care (01) | DRG 871 ==
LOC: ER 07:01 → EROBS 08:19 → 4W 08:19 → SICU 08-29 13:46 → ENTRNSPT 09-02 10:23 → EDTRNSPTSTS 09-02 10:26 → SICU 09-02 10:44
PROVIDERS: Student in an Organized Health Care Education/Training Program; ADMIT Family Medicine
DX: A41.9 Sepsis, unspecified organism (principal); J96.21 Acute and chronic respiratory failure with hypoxia; J44.1 Chronic obstructive pulmonary disease with (acute) exacerbation; E44.0 Moderate protein-calorie malnutrition; Z68.1 Body mass index [BMI] 19.9 or less, adult; J20.9 Acute bronchitis, unspecified; E88.01 Alpha-1-antitrypsin deficiency; F41.9 Anxiety disorder, unspecified; M81.0 Age-related osteoporosis without current pathological fracture; Z86.73 Personal history of transient ischemic attack (TIA), and cerebral infarction without residual deficits; Z86.718 Personal history of other venous thrombosis and embolism; Z79.51 Long term (current) use of inhaled steroids; Z79.899 Other long term (current) drug therapy
CPT/HCPCS: 10040; 15002

== ENCOUNTER → 2018-09-04 | Outpatient (CLI) | payer OTHER, BC ==
[~2018-09-04] MED LIST changes: +ALPRAZOLAM 0.50.5 M1 PO; +CALCITONIN-SAL3.7 ML NASAL; +CALCIUM WITH V1 EAC1 PO; +COLACE100 MG PO; +DULCOLAX5 MG PO; +LEVAQUIN 750 M750 MG PO; +NORCO 5-325 TA1 EACH PO; +PEPCID20 MG PO; +PREDNISONE 20 M20 M1 PO; +PROLASTIN C1000 MG IV; +PULMICORT0.5 MG/21 INH; +TESSALON PERLE100 MG PO; +TYLENOL EXTRA500 MG PO
[2018-09-04 14:05] VITALS: BP 126/60
--- NOTE | 2018-09-04 14:40 | NUR ---
HERE FOR WEEKLY PROLASTIN C INFUSION. MISSED LAST WEEK D/T HOSPITALIZATION. WENT HOME ON SATURDAY. STATES SHE IS DOING SO MUCH BETTER...CANNOT BELIEVE HOW MUCH BETTER. LUNGS SOUND CLEAR. OFF OF O2. ABLE TO WALK INTO THE CLINIC TODAY WITH MINIMAL EXERTIONAL DYSPNEA. FEELS LIKE SHE HAS A NEW LEASE ON LIFE. STILL ON HER ORAL STEROID TAPER. USING VIBRATION VEST, FLUTTER VALVE, NEBULIZER AT HOME. DR. WRAY AWARE OF HOSPITALIZATION. PT SCHEDULED TO SEE HIM IN ONE MONTH. TOLERATED TODAY'S INFUSION WITHOUT INCIDENT. SCHEDULED TO RETURN AGAIN NEXT WEEK. DISMISSED IN STABLE CONDITION.
== END ==
LOC: OPONC 00:47
DX: E88.01 Alpha-1-antitrypsin deficiency (principal)
CPT/HCPCS: 95000

== ENCOUNTER → 2018-09-10 | Outpatient (CLI) | payer OTHER, BC ==
[2018-09-10 13:00] VITALS: BP 122/55
--- NOTE | 2018-09-10 13:10 | NUR ---
HERE FOR WEEKLY PROLASTIN C INFUSION. HAS BEEN OUT OF THE HOSPITAL NOW FOR OVER 1 WEEK AND STATES SHE IS STILL DOING VERY WELL, OFF OF HER O2, ABLE TO SLEEP THROUGH THE NITE, NOT PRODUCING ANY SPUTUM, NO COUGH, ABLE TO WALK AROUND WITH LITTLE TO NO DYSPNEA. PT IS EXTREMELY PLEASED AND RELIEVED THAT SHE IS DOING SO WELL. STILL ON HER PREDNISONE TAPER. OFF THE ANTIBIOTIC. USING HER VIBRATION VEST 3 X DAILY AND HER NEBULIZER AND FLUTTER VALVE. THIS WAS THE FIRST DAY FOR INFUSION OF THE PROLASTIN C LIQUID. PT TOLERATED WITHOUT INCIDENT, NO S/S REACTION. 5 MICRON FILTER USED. RUN AT 220/H, COMPLETED IN JUST OVER 20 MINUTES. PT DISMISSED IN STABLE CONDITION. SCHEDULED TO RETURN AGAIN IN ONE WEEK.
== END ==
LOC: OPONC 00:49
DX: E88.01 Alpha-1-antitrypsin deficiency (principal)
CPT/HCPCS: 95000; 95113

== ENCOUNTER → 2018-09-17 | Outpatient (CLI) | payer OTHER, BC ==
[2018-09-17 13:50] VITALS: BP 121/46
--- NOTE | 2018-09-17 15:30 | NUR ---
HERE FOR WEEKLY PROLASTIN C INFUSION. CONTINUES TO REPORT FEELING SO MUCH BETTER AND HAVING MORE ENERGY THAN SHE HAS FOR 6 MONTHS. HAS HAD NO NEED FOR O2 FOR 3 WEEKS NOW. NO COUGH. LUNGS CLEAR. PT IS SO VERY PLEASED. PROLASTIN C INFUSED WITHOUT INCIDENT USING 5 MICRON FILTER. DISMISSED IN STABLE CONDITION. SCHEDULED TO RETURN AGAIN IN ONE WEEK.
== END ==
LOC: OPONC 00:15
DX: E88.01 Alpha-1-antitrypsin deficiency (principal)
CPT/HCPCS: 95000

== ENCOUNTER → 2018-09-24 | Outpatient (CLI) | payer OTHER, BC ==
[2018-09-24 13:20] VITALS: BP 136/55
--- NOTE | 2018-09-24 13:45 | NUR ---
HERE FOR WEEKLY PROLASTIN C INFUSION. REPORTS FEELING REALLY, REALLY GOOD AND SO VERY PLEASED. STATES ENERGY LEVEL IS UP, EATING AND STRENGTH UP AND NO COUGH OR CONGESTION FROM LUNGS. USING HER NEBULIZER, VIBRATION VEST, FLUTTER VALVE, ETC BUT NO NEED FOR 02. SLEEPING IN RECLINED SOFA BUT HAS A BED ON ORDER THAT ELEVATES THE HEAD. TOLERATED TODAY'S INFUSION WITHOUT INCIDENT. DISMISSED IN STABLE CONDITION. SCHEDULED TO RETURN NEXT WED.
== END ==
LOC: OPONC 08:46
DX: E88.01 Alpha-1-antitrypsin deficiency (principal)
CPT/HCPCS: 95000

== ENCOUNTER → 2018-10-01 | Outpatient (CLI) | payer OTHER, BC ==
[2018-10-01 13:15] VITALS: BP 138/58
--- NOTE | 2018-10-01 13:45 | NUR ---
HERE FOR WEEKLY PROLASTIN C INFUSION. REPORTS DOING WELL, CONTINUES TO FEEL WELL, NO COUGH, DYSPNEA OR MUCOUS ISSUES. PT REMAINS VERY PLEASED. ALMOST DONE WITH HER STEROID BURST FROM DR. SUAREZ. ENCOURAGED PT TO CALL OFFICE TO SEE IF SHE SHOULD HAVE ANY TYPE OF TAPER. PT VERBALIZES UNDERSTANDING. TOLERATED TODAY'S INFUSION WITHOUT INCIDENT. DISMISSED IN STABLE CONDITION. SCHEDULED TO RETURN AGAIN NEXT WEEK.
== END ==
LOC: OPONC 06:53
DX: E88.01 Alpha-1-antitrypsin deficiency (principal)
CPT/HCPCS: 95000

== ENCOUNTER → 2018-10-08 | Outpatient (CLI) | payer OTHER | LOC: CAT 14:09 | DX: Z13.6 Encounter for screening for cardiovascular disorders (principal); E78.00 Pure hypercholesterolemia, unspecified; I25.10 Atherosclerotic heart disease of native coronary artery without angina pectoris ==

== ENCOUNTER → 2018-10-08 | Outpatient (CLI) | payer OTHER, BC ==
[2018-10-08 13:10] VITALS: BP 126/62
--- NOTE | 2018-10-08 13:55 | NUR ---
HERE FOR WEEKLY PROLASTIN C. REPORTS INCREASE IN EXERTIONAL DYSPNEA NOW THAT SHE IS OFF HER PREDNISONE. SAW DR. WRAY ON THE WHO IS AWARE OF THIS. NO C/O MUCOUS PRODUCTION AND LUNGS SOUND CLEAR. PT ALSO HAVING LOW BACK PAIN WHICH STARTED A COUPLE DAYS AGO. SHE IS AFRAID SHE MAY HAVE ANOTHER COMPRESSED VERTEBRAE. SHE IS GOING TO WATCH THIS FOR A COUPLE DAYS AND LET DR. SUAREZ KNOW IF IT PERSISTS. PAIN DOES GO AWAY WITH REST BUT IS A 4-5 WITH ACTIVITY. PT STILL DOING COMPRESSION VEST, NEBULIZER, FLUTTER VALVE, ETC. TOLERATED TODAY'S INFUSION WITHOUT INCIDENT. DISMISSED IN STABLE CONDITION. SCHEDULED TO RETURN AGAIN IN ONE WEEK.
== END ==
LOC: OPONC 00:38
DX: E88.01 Alpha-1-antitrypsin deficiency (principal)
CPT/HCPCS: 95000

== ENCOUNTER → 2018-10-14 | Outpatient (CLI) | payer OTHER, BC | LOC: RAD 09:20 | DX: J43.9 Emphysema, unspecified (principal); M80.08XA Age-related osteoporosis with current pathological fracture, vertebra(e), initial encounter for fracture; M47.816 Spondylosis without myelopathy or radiculopathy, lumbar region; M85.88 Other specified disorders of bone density and structure, other site; I70.0 Atherosclerosis of aorta ==

== ENCOUNTER → 2018-10-15 | Outpatient (CLI) | payer OTHER, BC ==
[2018-10-15 13:00] VITALS: BP 106/58
--- NOTE | 2018-10-15 13:45 | NUR ---
PT HERE FOR WEEKLYL PROLASTIN C INFUSION. REPORTS ONGOING PAIN IN LUMBAR BACK, ABOUT A 7-8 IN ALL POSITIONS, EVEN PAINFUL AT REST. STATES NOT GETTING WORSE, JUST NO BETTER. WENT TO PCP WALK IN CLINIC YESTERDAY, IMAGING DONE. NOW SCHEDULED FOR AN MRI OF SPINE TOMORROW AND DR. SUAREZ WILL DETERMINE F/U PLAN AFTER RECEIVING THE REPORT. PT UNDERSTANDABLY DISCOURAGED. LUNGS CLEAR BUT DYSPNEA ON EXERTION NOW. PT NOT SURE IF THIS IS MORE ATTRIBUTED TO STOPPING THE STEROIDS OR TO THE BACK PAIN PREVENTING DEEP BREATHING. IS STILL USING NEBULIZER BUT HOLDING OFF ON VIBRATION VEST AT THIS TIME. TOLERATED TODAY'S INFUSION WITHOUT INCIDENT. ARRIVED AND DEPARTED PER W/C THIS VISIT, USING O2 AT 2L. DISMISSED IN STABLE CONDITION. WILL RETURN TO OUR CLINIC IN ONE WEEK.
== END ==
LOC: OPONC 00:29
DX: E88.01 Alpha-1-antitrypsin deficiency (principal)
CPT/HCPCS: 95000

== ENCOUNTER → 2018-10-16 | Outpatient (CLI) | payer OTHER, BC | LOC: MRI 13:53 | DX: S32.019D Unspecified fracture of first lumbar vertebra, subsequent encounter for fracture with routine healing (principal); S32.029D Unspecified fracture of second lumbar vertebra, subsequent encounter for fracture with routine healing; S32.039D Unspecified fracture of third lumbar vertebra, subsequent encounter for fracture with routine healing; S32.049D Unspecified fracture of fourth lumbar vertebra, subsequent encounter for fracture with routine healing; S32.059D Unspecified fracture of fifth lumbar vertebra, subsequent encounter for fracture with routine healing; S22.089D Unspecified fracture of T11-T12 vertebra, subsequent encounter for fracture with routine healing; N28.1 Cyst of kidney, acquired; M51.35 Other intervertebral disc degeneration, thoracolumbar region; I10 Essential (primary) hypertension; X58.XXXD Exposure to other specified factors, subsequent encounter ==

== ENCOUNTER → 2018-10-22 | Outpatient (CLI) | payer OTHER, BC ==
[2018-10-22 13:05] VITALS: BP 143/65
--- NOTE | 2018-10-22 13:45 | NUR ---
HERE FOR WEEKLY PROLASTIN C INFUSION. REPORTS DOING BETTER THIS WEEK. PAIN A LITTLE MORE CONTROLLED. STATES HAS A COMPRESSION FX AT T12 BUT IT WILL HAVE TO HEAL ON IT'S OWN. PLANS TO SLOW ACTIVITY LEVEL AND HOLD OFF ON USING THE VIBRATION VEST WHILE IT HEALS. STILL USING NEBULIZER, FLUTTER VALVE, ETC. ON ROOM AIR WHEN ARRIVED TO CLINIC TODAY AND SATS IN 90'S UPON ARRIVAL. TOLERATED TODAY'S INFUSION WITHOUT INCIDENT. SCHEDULED TO RETURN AGAIN IN ONE WEEK FOR NEXT INFUSION.
== END ==
LOC: OPONC 00:51
DX: E88.01 Alpha-1-antitrypsin deficiency (principal)
CPT/HCPCS: 95000

== ENCOUNTER → 2018-10-29 | Outpatient (CLI) | payer OTHER, BC ==
[2018-10-29 13:15] VITALS: BP 127/63
--- NOTE | 2018-10-29 13:50 | NUR ---
HERE FOR WEEKLY PROLASTIN C INFUSION. REPORTS DOING FAIRLY WELL. BACK PAIN NO WORSE. ABLE TO SLEEP IN HER BED WITH THE ELEVATED HOB. HAS RECENT ONSET OF URI AND IS ON A MEDROL DOSE PACK AND ROUND OF ANTIBIOTICS GIVEN BY DR. SUAREZ. ARRIVED WITHOUT O2 WITH MINIMAL DYSPNEA TODAY. TOLERATED INFUSION WITHOUT INCIDENT. DISMISSED IN STABLE CONDITION. SCHEDULED TO RETURN NEXT SAT.
== END ==
LOC: OPONC 02:32
DX: E88.01 Alpha-1-antitrypsin deficiency (principal)
CPT/HCPCS: 95000

== ENCOUNTER → 2018-11-05 | Outpatient (CLI) | payer OTHER, BC ==
[2018-11-05 13:10] VITALS: BP 113/55
--- NOTE | 2018-11-05 13:40 | NUR ---
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 REPORTS HAVING A GOOD WEEK LUNG-WHITNEY. ON HER LAST DAY OF ORAL ANTIBX AND ONE MORE DAY LEFT ON STEROID TAPER FOR RECENT URI. LUNGS CLEAR, FEELS THERE IS NO MUCOUS BUILD UP. STILL HAVING TO BE CAUTIOUS WITH MOVEMENT D/T COMPRESSION FX. STATES DR. UHFF WANTS TO DO A KYPHO OR VERTEBROPLASTY BUT SHE IS AWAITING OFFICE VISIT WITH DR. SUAREZ NEXT WEEK PRIOR TO MAKING A DECISION. TOLERATED TODAY'S INFUSION WITHOUT INCIDENT. DISMISSED IN STABLE CONDITION. SCHEDULED TO RETURN AGAIN IN ONE WEEK.
== END ==
LOC: OPONC 01:44
DX: E88.01 Alpha-1-antitrypsin deficiency (principal)
CPT/HCPCS: 95000

== ENCOUNTER → 2018-11-12 | Outpatient (CLI) | payer OTHER, BC ==
[2018-11-12 12:55] VITALS: BP 123/59
--- NOTE | 2018-11-12 13:30 | NUR ---
HERE FOR WEEKLY PROLASTIN C INFUSION. REPORTS DOING WELL. NO RESPIRATORY CONCERNS NOTED. STILL BEING CAUTIOUS WITH MOVEMENT D/T RECENT COMPRESSION FX. STATES THIS IS NO LONGER PAINFUL AT REST BUT IS SO WITH SOME ACTIVITIES. SHE STATES THAT DR. SUAREZ IS ADVISING TO HOLD OFF ON KYPHO OR VERTEBROPLASTY AT THIS TIME AND PT IS AGREEABLE. TOLERATED INFUSION TODAY WITHOUT INCIDENT. NO CONCERNS NOTED. DISMISSED IN STABLE CONDITION. WILL RETURN AGAIN NEXT WEEK.
== END ==
LOC: OPONC 08:34
DX: E88.01 Alpha-1-antitrypsin deficiency (principal)
CPT/HCPCS: 95000

== ENCOUNTER → 2018-11-18 | Outpatient (CLI) | payer OTHER, BC | LOC: ULTRA 08:11 | DX: I71.4 Abdominal aortic aneurysm, without rupture (principal) ==

== ENCOUNTER → 2018-11-19 | Outpatient (CLI) | payer OTHER, BC ==
[2018-11-19 13:00] VITALS: BP 121/59
--- NOTE | 2018-11-19 13:30 | NUR ---
HERE FOR WEEKLY PROLASTIN C INFUSION. REPORTS DOING WELL, LOOKS GOOD. NO COMPLAINTS OR CONCERNS NOTED. TOLERATED INFUSION TODAY WITHOUT INCIDENT, NO S/S REACTION. DISMISSED IN STABLE CONDITION. SCHEDULED TO RETURN AGAIN IN ONE WEEK.
== END ==
LOC: OPONC 00:21
DX: E88.01 Alpha-1-antitrypsin deficiency (principal)
CPT/HCPCS: 95000

== ENCOUNTER → 2018-11-26 | Outpatient (CLI) | payer OTHER, BC ==
[2018-11-26 13:05] VITALS: BP 125/60
--- NOTE | 2018-11-26 13:40 | NUR ---
HERE FOR WEEKLY PROLASTIN C INFUSION. REPORTS DOING VERY WELL. BREATHING IS NOT LABORED. USING O2 OCCASIONALLY AT HOME. NO CONCERNS NOTED. TOLERATED INFUSION WITHOUT INCIDENT. DISMISSED IN STABLE CONDITION. SCHEDULED TO RETURN NEXT WEEK ON SATURDAY.
== END ==
LOC: OPONC 00:51
DX: E88.01 Alpha-1-antitrypsin deficiency (principal)
CPT/HCPCS: 95000

== ENCOUNTER → 2018-12-03 | Outpatient (CLI) | payer OTHER, BC ==
--- NOTE | 2018-12-03 13:36 | NUR ---
HERE FOR WEEKLY PROLASTIN C INFUSION. REPORTS DOING WELL FROM RESPIRATORY AND BACK STANDPOINT. HOWEVER, NOW EXPERIENCY LE EDEMA, L > R AT 2+. SEEN BY DR. ALVARADO, ULTRASOUND ORDERED, STATES NEGATIVE FOR CLOT. WAS PLACED ON A DIURETIC AND IS WEARING SUPPORT STOCKINGS AND ELEVATING LEGS. STATES HAS A F/U WITH DR. ALVARADO IN ONE WEEK TO RE-EVALUATE. TOLERATED TODAY'S INFUSION WITOUT INCIDENT. DISMISSED IN STABLE CONDITION. SCHEDULED TO RETURN IN ONE WEEK.
== END ==
LOC: OPONC 02:21
DX: E88.01 Alpha-1-antitrypsin deficiency (principal)
CPT/HCPCS: 95000

== ENCOUNTER → 2018-12-10 | Outpatient (CLI) | payer OTHER, BC ==
[2018-12-10 13:00] VITALS: BP 106/54
--- NOTE | 2018-12-10 13:26 | NUR ---
HERE FOR WEEKLY PROLASTIN C INFUSION. REPORTS DOING WELL. SOME DYSPNEA BUT NO MUCOUS ISSUES. BACK PAIN OFF AND ON BUT TOLERATING. BILAT LE IMPROVING WITH ELEVATION, COMPRESSION STOCKINGS AND LASIX. L>R, -2+. TOLERATED INFUSION WITHOUT INCIDENT, NO S/S REACTION. DISMISSED IN STABLE CONDITION. SCHEDULED TO RETURN IN ONE WEEK.
== END ==
LOC: OPONC 01:15
DX: E88.01 Alpha-1-antitrypsin deficiency (principal)
CPT/HCPCS: 95000

== ENCOUNTER → 2018-12-17 | Outpatient (CLI) | payer OTHER, BC ==
--- NOTE | 2018-12-17 12:25 | NUR ---
HERE FOR WEEKLY PROLASTIN C INFUSION. REPORTS DOING WELL. NO CONCERNS NOTED. NO INCREASE IN BACK PAIN OR BREATHING ISSUES. SWELLING IN LEGS RESOLVING. TOLERATED INFUSION WITHOUT INCIDENT, NO S/S REACTION. DISMISSED IN STABLE CONDITION.
[2018-12-17 13:00] VITALS: BP 132/45
== END ==
LOC: OPONC 02:14
DX: E88.01 Alpha-1-antitrypsin deficiency (principal)
CPT/HCPCS: 95000

== ENCOUNTER → 2018-12-24 | Outpatient (CLI) | payer OTHER, BC ==
[2018-12-24 13:00] VITALS: BP 112/50
--- NOTE | 2018-12-24 13:45 | NUR ---
HERE FOR WEEKLY PROLASTIN C INFUSION. REPORTS DOING WELL CAN BE EXPECTED, NO NEW CONCERNS, LUNGS ARE CLEAR, BACK PAIN MINIMAL. TOLERATED INFUSION WITHOUT INCIDENT. DISMISSED IN STABLE CONDITION. SCHEDULED TO RETURN NEXT SAT.
== END ==
LOC: OPONC 01:54
DX: E88.01 Alpha-1-antitrypsin deficiency (principal)
CPT/HCPCS: 95000

== ENCOUNTER → 2018-12-31 | Outpatient (CLI) | payer OTHER, BC ==
[2018-12-31 12:49] VITALS: BP 123/54
--- NOTE | 2018-12-31 13:41 | NUR ---
HERE FOR WEEKLY PROLASTIN C INFUSION. REPORTS DOING WELL. NOTICING A LITTLE COUGH AND SOME EXERTIONAL DYSPNEA. HAS APPT TO SEE DR. SUAREZ TOMORROW AND WILL ADDRESS THIS WITH HIM. MINIMAL BACK DISCOMFORT, JUST WATCHING HER PHYSICAL ACTIVITY. TOLERATED INFUSION TODAY WITHOUT INCIDENT. DISMISSED IN STABLE CONDITION. SCHEDULED TO RETURN IN ONE WEEK.
== END ==
LOC: OPONC 00:52 → SPEC 10:55 → OPONC 12:10
DX: E88.01 Alpha-1-antitrypsin deficiency (principal)
CPT/HCPCS: 95000

== ENCOUNTER → 2019-01-07 | Outpatient (CLI) | payer OTHER, BC ==
[2019-01-07 13:00] VITALS: BP 128/61
--- NOTE | 2019-01-07 13:44 | NUR ---
IN FOR WEEKLY PROLASTIN C INFUSION. REPORTS DOING WELL, BREATHING IS BETTER THAN LAST WEEK. ON A STEROID TAPER AND ANTIBIOTIC THAT DR. SUAREZ PRESCRIBED LAST WEEK. USING NEBULIZER AND WILL HAVE A LITTLE SPUTUM PRODUCTION AFTER BREATHING TREATMENT. DENIES COLOR TO SPUTUM. BACK PAIN IS MINIMAL. NO OTHER CONCERNS NOTED. PT IS EXCITED ABOUT UPCOMING [place] OF HER GRANDDAUGHTER THIS WEEKEND. TOLERATED TODAY'S INFUSION WITHOUT INCIDENT. DISMISSED IN STABLE CONDITION. SCHEDULED TO RETURN NEXT WEEK.
== END ==
LOC: OPONC 01:19
DX: E88.01 Alpha-1-antitrypsin deficiency (principal); J43.9 Emphysema, unspecified
CPT/HCPCS: 95000

== ENCOUNTER → 2019-01-14 | Outpatient (CLI) | payer OTHER, BC ==
[2019-01-14 13:08] VITALS: BP 134/59
--- NOTE | 2019-01-14 14:42 | NUR ---
HERE FOR WEEKLY PROLASTIN C INFUSION. REPORTS DOING WELL. JUST FINISHED COURSE OF STEROIDS AND ANTIBIOTIC FOR RECENT UPPER AIRWAY CONGESTION. STATES FEELING MUCH BETTER. TOLERATED TODAY'S INFUSION WITHOUT INCIDENT. DISMISSED IN STABLE CONDITION. SCHEDULED TO RETURN AGAIN IN ONE WEEK.
== END ==
LOC: OPONC 00:18
DX: E88.01 Alpha-1-antitrypsin deficiency (principal)
CPT/HCPCS: 95000

== ENCOUNTER → 2019-01-21 | Outpatient (CLI) | payer OTHER, BC ==
[2019-01-21 13:00] VITALS: BP 125/63
--- NOTE | 2019-01-21 13:35 | NUR ---
HERE FOR WEEKLY PROLASTIN C INFUSION. REPORTS DOING FAIRLY WELL. NO NEW CONCERNS OTHER THAN INCREASING BILAT LE EDEMA R>L. HAS NOT BEEN TAKING HER LASIX. ENCOURAGED PT TO GET BACK ON THIS AND SEE HOW SHE DOES WITH IT. TOLERATED INFUSION WITHOUT INCIDENT. DISMISSED IN STABLE CONDITION. SCHEDULED TO RETURN NEXT SAT.
== END ==
LOC: OPONC 00:47
DX: E88.01 Alpha-1-antitrypsin deficiency (principal)
CPT/HCPCS: 95000

== ENCOUNTER → 2019-01-28 | Outpatient (CLI) | payer OTHER, BC ==
[2019-01-28 12:55] VITALS: BP 117/62
--- NOTE | 2019-01-28 13:30 | NUR ---
HERE FOR WEEKLY PROLASTIN C INFUSION. REPORTS DOING WELL. SLIGHT WHEEZES ALL LUNG MOREL NOTED. NO OTHER CONCERNS. TOLERATED INFUSION WITHOUT INCIDENT. DISMISSED IN STABLE CONDITION. SCHEDULED TO RETURN IN ONE WEEK.
== END ==
LOC: OPONC 04:59
DX: E88.01 Alpha-1-antitrypsin deficiency (principal)
CPT/HCPCS: 95000

== ENCOUNTER → 2019-02-11 | Outpatient (CLI) | payer OTHER, BC ==
[2019-02-11 12:50] VITALS: BP 122/48
--- NOTE | 2019-02-11 13:25 | NUR ---
IN FOR WEEKLY PROLASTIN C INFUSION. REPORTS DOING VERY WELL. NO CONCERNS NOTED. TOLERATED INFUSION WITHOUT INCIDENT. DISMISSED IN STABLE CONDITION. SCHEDULED TO RETURN AGAIN IN ONE WEEK.
== END ==
LOC: OPONC 10:16
DX: E88.01 Alpha-1-antitrypsin deficiency (principal)
CPT/HCPCS: 95000

== ENCOUNTER → 2019-02-18 | Outpatient (CLI) | payer OTHER, BC ==
[~2019-02-18] MED LIST changes: +PREDNISONE 10 M10 M1 PO
[2019-02-18 13:05] VITALS: BP 115/49
--- NOTE | 2019-02-18 13:35 | NUR ---
HERE FOR WEEKLY PROLASTIN C INFUSION. REPORTS DOING WELL, FEELING WELL. FEELS SHE IS MUCH IMPROVED NOW THAT DR. SUAREZ ADDED A MAINTENANCE DOSE OF PREDNISONE DAILY. NO CONCERNS NOTED. TOLERATED INFUSION WITHOUT INCIDENT. DISMISSED IN STABLE CONDITION. SCHEDULED TO RETURN AGAIN NEXT WEEK.
== END ==
LOC: OPONC 00:53
DX: E88.01 Alpha-1-antitrypsin deficiency (principal)
CPT/HCPCS: 95000

== ENCOUNTER → 2019-02-25 | Outpatient (CLI) | payer OTHER, BC ==
[2019-02-25 13:15] VITALS: BP 119/54
--- NOTE | 2019-02-25 13:45 | NUR ---
HERE FOR WEEKLY PROLASTIN C INFUSION. REPORTS DOING WELL, FEELING WELL. NO CONCERNS NOTED. TOLERATED INFUSION WITHOUT INCIDENT. DISMISSED IN STABLE CONDITION. WILL RETURN IN ONE WEEK.
== END ==
LOC: OPONC 03:56
DX: E88.01 Alpha-1-antitrypsin deficiency (principal)
CPT/HCPCS: 95000

== ENCOUNTER → 2019-03-04 | Outpatient (CLI) | payer OTHER, BC ==
[2019-03-04 13:52] VITALS: BP 124/57
--- NOTE | 2019-03-04 13:55 | NUR ---
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 STATED FEELING WELL. LUNGS CLEAR. TOLERATED INFUSION WITHOUT INCIDENT. REMOVED IV AND DISMISSED IN GOOD CONDITION.
== END ==
LOC: OPONC 01:21
DX: E88.01 Alpha-1-antitrypsin deficiency (principal)
CPT/HCPCS: 95000

== ENCOUNTER → 2019-03-11 | Outpatient (CLI) | payer OTHER, BC ==
[2019-03-11 13:08] VITALS: BP 133/64
--- NOTE | 2019-03-11 13:35 | NUR ---
HERE FOR WEEKLY PROLASTIN C INFUSION. REPORTS DOING VERY WELL. STILL ON ORAL PREDNISONE WHICH SHE STATES HAS REALLY HELPED A LOT WITH HER BREATHING. NO MUCOUS BUILD UP NOTED. NO NEED FOR O2 EVEN AT HS OR ACTIVITY. TOLERATED TODAY'S INFUSION WITHOUT INCIDENT. DISMISSED IN STABLE CONDITION. SCHEDULED TO RETURN IN ONE WEEK.
== END ==
LOC: OPONC 00:37
DX: E88.01 Alpha-1-antitrypsin deficiency (principal)
CPT/HCPCS: 95000

== ENCOUNTER → 2019-03-18 | Outpatient (CLI) | payer OTHER, BC ==
[2019-03-18 13:05] VITALS: BP 119/51
--- NOTE | 2019-03-18 13:36 | NUR ---
HERE FOR WEEKLY PROLASTIN C INFUSION. REPORTS DOING VERY WELL. VERY PLEASED WITH HOW WELL SHE HAS DONE. REMAINS ON DAILY ORAL PREDNISONE PRESCRIBED BY DR. SUAREZ. NO CONCERNS NOTED. TOLERATED INFUSION WITHOUT INCIDENT. DISMISSED IN STABLE CONDITION. SCHEDULED TO RETURN IN ONE WEEK.
== END ==
LOC: OPONC 00:38
DX: E88.01 Alpha-1-antitrypsin deficiency (principal)
CPT/HCPCS: 95000

== ENCOUNTER → 2019-03-25 | Outpatient (CLI) | payer OTHER, BC ==
[2019-03-25 13:15] VITALS: BP 123/52
--- NOTE | 2019-03-25 13:45 | NUR ---
HERE FOR WEEKLY PROLASTIN C INFUSION. REPORTS DOING WELL. NO RESP ISSUES IDENTIFIED, NO CONCERNS VERBALIZED. TOLERATED INFUSION WITHOUT INCIDENT. DISMISSED IN STABLE CONDITION. SCHEDULED TO RETURN IN ONE WEEK.
== END ==
LOC: OPONC 00:33
DX: E88.01 Alpha-1-antitrypsin deficiency (principal)
CPT/HCPCS: 95000

== ENCOUNTER → 2019-04-01 | Outpatient (CLI) | payer OTHER, BC ==
[2019-04-01 12:35] VITALS: BP 127/64
--- NOTE | 2019-04-01 13:03 | NUR ---
HERE FOR WEEKLY PROLASTIN C INFUSION. REPORTS DOING WELL. NO CONCERNS NOTED. TOLERATED INFUSION WITHOUT INCIDENT. DISMISSED IN STABLE CONDITION. SCHEDULED TO RETURN NEXT WED.
== END ==
LOC: OPONC 02:45
DX: E88.01 Alpha-1-antitrypsin deficiency (principal)
CPT/HCPCS: 95000

== ENCOUNTER → 2019-04-08 | Outpatient (CLI) | payer OTHER, BC ==
[2019-04-08 12:50] VITALS: BP 121/53
--- NOTE | 2019-04-08 13:46 | NUR ---
IN FOR WEEKLY PROLASTIN C INFUSION. REPORTS DOING WELL, FEELING WELL. LOOKS GOOD. TOLERATED INFUSION WITHOUT INCIDENT. DISMISSED IN STABLE CONDITION. SCHEDULED TO RETURN NEXT WED.
== END ==
LOC: OPONC 00:48
DX: E88.01 Alpha-1-antitrypsin deficiency (principal)
CPT/HCPCS: 95000

== ENCOUNTER → 2019-04-15 | Outpatient (CLI) | payer OTHER, BC ==
[2019-04-15 13:07] VITALS: BP 110/47
--- NOTE | 2019-04-15 13:43 | NUR ---
HERE FOR WEEKLY PROLASTIN C INFUSION. REPORTS DOING WELL, FEELING WELL. NO CONCERNS NOTED. TOLERATED INFUSION WITHOUT INCIDENT, NO S/S REACTION. VISITING WITH FRIEND THEN WILL DISMISS. SCHEDULED TO RETURN NEXT WEEK ON SAT.
== END ==
LOC: OPONC 01:47
DX: E88.01 Alpha-1-antitrypsin deficiency (principal)
CPT/HCPCS: 95000

== ENCOUNTER → 2019-04-22 | Outpatient (CLI) | payer OTHER, BC ==
[2019-04-22 13:15] VITALS: BP 106/49
--- NOTE | 2019-04-22 13:50 | NUR ---
HERE FOR WEEKLY PROLASTIN C INFUSION. REPORTS DOING WELL. NO CONCERNS NOTED. TOLERATED INFUSION WITHOUT INCIDENT. DISMISSED IN STABLE CONDITION. SCHEDULED TO RETURN NEXT WED.
== END ==
LOC: OPONC 01:25
DX: E88.01 Alpha-1-antitrypsin deficiency (principal)
CPT/HCPCS: 95000

== ENCOUNTER → 2019-04-29 | Outpatient (CLI) | payer OTHER, BC ==
[2019-04-29 13:10] VITALS: BP 117/60
--- NOTE | 2019-04-29 13:45 | NUR ---
HERE FOR WEEKLY PROLASTIN C INFUSION. REPORTS DOING WELL, FEELING WELL. NO CONCERNS NOTED. TOLERATED INFUSION WITHOUT INCIDENT. DISMISSED IN STABLE CONDITION. SCHEDULED TO RETURN NEXT WED.
== END ==
LOC: OPONC 00:35
DX: E88.01 Alpha-1-antitrypsin deficiency (principal)
CPT/HCPCS: 95000

== ENCOUNTER → 2019-05-06 | Outpatient (CLI) | payer OTHER, BC ==
[2019-05-06 13:05] VITALS: BP 124/58
--- NOTE | 2019-05-06 13:40 | NUR ---
HERE FOR WEEKLY PROLASTIN C INFUSION. REPORTS DOING WELL, FEELING WELL. NO CONCERNS NOTED. TOLERATED INFUSION WITHOUT INCIDENT. DISMISSED IN STABLE CONDITION. SCHEDULED TO RETURN IN ONE WEEK.
== END ==
LOC: OPONC 09:29
DX: E88.01 Alpha-1-antitrypsin deficiency (principal)
CPT/HCPCS: 95000

== ENCOUNTER → 2019-05-13 | Outpatient (CLI) | payer OTHER, BC ==
[2019-05-13 13:10] VITALS: BP 123/45
--- NOTE | 2019-05-13 13:40 | NUR ---
PT HERE FOR HER WEEKLY PROLASTIN C INFUSION. REPORTS SHE CONTINUES TO FEEL WELL, DO WELL. NO CONCERNS NOTED. TOLERATED INFUSION WITHOUT INCIDENT. DISMISSED IN STABLE CONDITION. SCHEDULED TO RETURN AGAIN NEXT WEEK.
== END ==
LOC: OPONC 02:31
DX: E88.01 Alpha-1-antitrypsin deficiency (principal)
CPT/HCPCS: 95000

== ENCOUNTER → 2019-05-20 | Outpatient (CLI) | payer OTHER, BC ==
[2019-05-20 13:00] VITALS: BP 134/56
--- NOTE | 2019-05-20 13:35 | NUR ---
HERE FOR WEEKLY PROLASTIN C INFUSION. REPORTS DOING WELL. NO CONCERNS NOTED. TOLERATED INFUSION WITHOUT INCIDENT. DISMISSED IN STABLE CONDITION. SCHEDULED TO RETURN IN ONE WEEK.
== END ==
LOC: OPONC 08:13
DX: E88.01 Alpha-1-antitrypsin deficiency (principal)
CPT/HCPCS: 95000

== ENCOUNTER → 2019-05-25 | Outpatient (CLI) | payer OTHER, BC | LOC: NUC 13:20 | DX: M81.0 Age-related osteoporosis without current pathological fracture (principal); M85.832 Other specified disorders of bone density and structure, left forearm; Z78.0 Asymptomatic menopausal state ==

== ENCOUNTER → 2019-05-27 | Outpatient (CLI) | payer OTHER, BC ==
[2019-05-27 14:00] VITALS: BP 120/61
--- NOTE | 2019-05-27 14:30 | NUR ---
HERE FOR WEEKLY PROLASTIN C INFUSION. REPORTS DOING WELL, FEELING WELL. TOLERATED INFUSION WITHOUT INCIDENT. DISMISSED IN STABLE CONDITION. SCHEDULED TO RETURN AGAIN NEXT WEEK.
== END ==
LOC: OPONC 00:47
DX: E88.01 Alpha-1-antitrypsin deficiency (principal)
CPT/HCPCS: 95000

== ENCOUNTER → 2019-06-03 | Outpatient (CLI) | payer OTHER, BC ==
[2019-06-03 13:20] VITALS: BP 130/61
--- NOTE | 2019-06-03 13:50 | NUR ---
HERE FOR WEEKLY PROLASTIN C INFUSION. REPORTS DOING WELL, FEELING WELL. NO CONCERNS NOTED. TOLERATED INFUSION WITHOUT INCIDENT. SCHEDULED TO RETURN AGAIN IN ONE WEEK. DISMISSED IN STABLE CONDITION.
== END ==
LOC: OPONC 11:12
DX: E88.01 Alpha-1-antitrypsin deficiency (principal)
CPT/HCPCS: 95000

== ENCOUNTER → 2019-06-10 | Outpatient (CLI) | payer OTHER, BC ==
[2019-06-10 13:15] VITALS: BP 133/62
--- NOTE | 2019-06-10 13:50 | NUR ---
HERE FOR WEEKLY PROLASTIN C INFUSION. REPORTS DOING WELL, FEELING WELL. NO CONCERNS NOTED. TOLERATED INFUSION WITHOUT INCIDENT. DISMISSED IN STABLE CONDITION. WILL RETURN AGAIN NEXT WEEK ON SAT.
== END ==
LOC: OPONC 00:17
DX: E88.01 Alpha-1-antitrypsin deficiency (principal)
CPT/HCPCS: 95000

== ENCOUNTER → 2019-06-17 | Outpatient (CLI) | payer OTHER, BC ==
[2019-06-17 13:15] VITALS: BP 126/58
--- NOTE | 2019-06-17 13:45 | NUR ---
HERE FOR WEEKLY PROLASTIN C INFUSION. REPORTS DOING WELL. HAS A LITTLE COUGH WITH SOME WHITISH SPUTUM PRODUCTION BUT LUNGS SOUND CLEAR. PT STATES SHE HAS CALLED DR. SUAREZ TO MAKE HIM AWARE. STILL ON HER LOW DOSE PREDNISONE DAILY. TOLERATED INFUSION WITHOUT INCIDENT. SCHEDULED TO RETURN AGAIN IN THE MORNING. DISMISSED IN STABLE CONDITION.
== END ==
LOC: OPONC 08:56
DX: E88.01 Alpha-1-antitrypsin deficiency (principal)
CPT/HCPCS: 95000

== ENCOUNTER → 2019-06-24 | Outpatient (CLI) | payer OTHER, BC ==
[2019-06-24 13:05] VITALS: BP 137/63
--- NOTE | 2019-06-24 13:40 | NUR ---
PT HERE FOR WEEKLY PROLASTIN. REPORTS DOING WELL. FINISHING UP ANTIBIOTIC AND MEDROL DOSE PACK FOR RECENT URI. STILL HAS A LITTLE COUGH BUT GETTING BETTER, NO C/O DYSPNEA. TOLERATED INFUSION WITHOUTINCIDENT. DISMISSED IN STABLE CONDITION. SCHEDULED TO RETURN TOMORROW.
== END ==
LOC: OPONC 15:37
DX: E88.01 Alpha-1-antitrypsin deficiency (principal)
CPT/HCPCS: 95000

== ENCOUNTER → 2019-07-01 | Outpatient (CLI) | payer OTHER, BC ==
[2019-07-01 14:10] VITALS: BP 138/66
--- NOTE | 2019-07-01 14:30 | NUR ---
HERE FOR WEEKLY PROLASTIN C INFUSION. REPORTS DOING WELL. NO CONCERNS NOTED. TOLERATED INFUSION WITHOUT INCIDENT. DISMISSED IN STABLE CONDIITION. SCHEDULED TO RETURN AGAIN NEXT WEEK.
== END ==
LOC: OPONC 09:03
DX: E88.01 Alpha-1-antitrypsin deficiency (principal)
CPT/HCPCS: 95000

== ENCOUNTER → 2019-07-08 | Outpatient (CLI) | payer OTHER, BC ==
[2019-07-08 12:57] VITALS: BP 132/60
--- NOTE | 2019-07-08 13:39 | NUR ---
WARMING BLANKETS PROVIDED TO GIVE COMFORT. IV INFUSION COMPLETED WITHOUT S/S OF ADVERSE REACTIONS. PATIENT TOLERATED PERIPHERAL IV WITHOUT COMPLAINTS.
== END ==
LOC: OPONC 08:26
DX: E88.01 Alpha-1-antitrypsin deficiency (principal)
CPT/HCPCS: 95000

== ENCOUNTER → 2019-07-15 | Outpatient (CLI) | payer OTHER, BC ==
[2019-07-15 14:24] VITALS: BP 137/67
--- NOTE | 2019-07-15 14:27 | NUR ---
IN FOR WEEKLY PROLASTIN C INFUSION. STATED FEELING WELL. LUNGS CLEAR. TOLERATED INFUSION WITHOUT INCIDENT. REMOVED IV AND DISMISSED IN STABLE CONDITION.
== END ==
LOC: OPONC 10:02
DX: E88.01 Alpha-1-antitrypsin deficiency (principal)
CPT/HCPCS: 95000

== ENCOUNTER → 2019-07-22 | Outpatient (CLI) | payer OTHER, BC ==
[2019-07-22 15:03] VITALS: BP 138/69
--- NOTE | 2019-07-22 15:06 | NUR ---
PT IN FOR HER WEEKLY INFUSION. SHE HAS NO COMPLAINTS AND ABLE TO AMB WITHOUT ASSIST. IV INFUSION COMPLETED WITHOUT COMPLICATIONS. PT WILL BE FOR NEXT INFUSION ON Jul.
== END ==
LOC: OPONC 07-15 12:00
DX: E88.01 Alpha-1-antitrypsin deficiency (principal)
CPT/HCPCS: 95000

== ENCOUNTER → 2019-07-30 | Outpatient (CLI) | payer OTHER, BC ==
[2019-07-30 13:05] VITALS: BP 112/67
--- NOTE | 2019-07-30 15:43 | NUR ---
IN FOR WEEKLY PROLASTIN C INFUSION. STATED FEELING WELL. VITAL SIGNS GOOD. TOLERATED INFUSION WITHOUT INCIDENT. LUNGS CLEAR. REMOVED IV AND DISMISSED IN GOOD CONDITION.
== END ==
LOC: OPONC 11:57
DX: E88.01 Alpha-1-antitrypsin deficiency (principal)
CPT/HCPCS: 95113

== ENCOUNTER → 2019-08-06 | Outpatient (CLI) | payer OTHER, BC | LOC: OPONC 09:56 | DX: E88.01 Alpha-1-antitrypsin deficiency (principal) | CPT/HCPCS: 95113 ==

== ENCOUNTER → 2019-08-12 | Outpatient (CLI) | payer OTHER, BC ==
[2019-08-12 14:32] VITALS: BP 141/93
--- NOTE | 2019-08-14 11:43 | NUR ---
PT IN FOR WKLY PROLASTIN C INFUSION 08/12/19. PT ZEIO WELL AND NO ISSUES.
== END ==
LOC: OPONC 09:01
DX: E88.01 Alpha-1-antitrypsin deficiency (principal)
CPT/HCPCS: 95000

== ENCOUNTER → 2019-08-19 | Outpatient (CLI) | payer OTHER, BC ==
[2019-08-19 12:45] VITALS: BP 121/70
--- NOTE | 2019-08-19 13:30 | NUR ---
PATIENT IS HERE FOR HERE WEEKLY PROLASTIN -C INFUSION. VITALS AND ASSESSMENT WNL. A #24 PERIPHERAL IV STARTED ON 1ST ATTEMPT. PROLASIN INFUSED AT 220/HR WITHOUT DIFFICULTY. THE PATIENT TOLERATED WITH NO S/S OF ADVERSE REACTIONS. POST INFUSION THE PERIPHERAL IV WAS REMOVED WITH CANNULA INTACT AND PRESSURE DRESSING APPLIED. PATIENT DISCHARGED TO HOME
== END ==
LOC: OPONC 13:17
DX: E88.01 Alpha-1-antitrypsin deficiency (principal)
CPT/HCPCS: 95113

== ENCOUNTER → 2019-08-26 | Outpatient (CLI) | payer OTHER, BC ==
[2019-08-26 14:00] VITALS: BP 122/66
--- NOTE | 2019-08-26 15:08 | NUR ---
PATIENT HERE FOR WEEKLY INFUSION. HERE AN HOUR BEHIND DUE TO LATE MD APPOINTMENT. INFUSION COMPLETED ORDERED WITHOUT ADVERSE REACTIONS. IV PLACED AND DISCONTINUED- INFUSION WNL.
== END ==
LOC: OPONC 10:39
DX: E88.01 Alpha-1-antitrypsin deficiency (principal)
CPT/HCPCS: 95000

== ENCOUNTER → 2019-09-02 | Outpatient (CLI) | payer OTHER, BC ==
[2019-09-02 13:10] VITALS: BP 133/62
--- NOTE | 2019-09-02 14:27 | NUR ---
PT IN FOR HER WEEKLY INFUSION OF PROLASTIN. PT EZIO WELL AND VSS WERE STABLE. PT DC'D TO HOME IN GOOD CONDITION.
== END ==
LOC: OPONC 11:58
DX: E88.01 Alpha-1-antitrypsin deficiency (principal)
CPT/HCPCS: 95000

== ENCOUNTER → 2019-09-09 | Outpatient (CLI) | payer OTHER, BC ==
[2019-09-09 14:40] VITALS: BP 132/63
--- NOTE | 2019-09-09 15:30 | NUR ---
PT IN FOR WEEKLY INFUSION OF PROLASTIN TODAY. NO COMPLAINTS OR CHANGES IN HER CONDITION.
== END ==
LOC: OPONC 06:56
DX: E88.01 Alpha-1-antitrypsin deficiency (principal)
CPT/HCPCS: 95113

== ENCOUNTER → 2019-09-16 | Outpatient (CLI) | payer OTHER, BC ==
--- NOTE | 2019-09-16 14:09 | NUR ---
PT IN FOR HER WEEKLY INFUSION OF PROLASTIN C. PT EZIO WELL DC'D OFF UNIT WITHOUT INCIDENT
== END ==
LOC: OPONC 11:00
DX: E88.01 Alpha-1-antitrypsin deficiency (principal)
CPT/HCPCS: 95000

== ENCOUNTER → 2019-09-23 | Outpatient (CLI) | payer OTHER, BC ==
[2019-09-23 13:15] VITALS: BP 126/52
--- NOTE | 2019-09-23 14:02 | NUR ---
PT IN FOR HER WEEKLY INFUSION OF PROLASTIN CLina EZIO WELL AND DC'D HOME IN GOOD CONDITION
== END ==
LOC: OPONC 11:17
DX: E88.01 Alpha-1-antitrypsin deficiency (principal)
CPT/HCPCS: 95000

== ENCOUNTER → 2019-09-30 | Outpatient (CLI) | payer OTHER, BC ==
[2019-09-30 13:10] VITALS: BP 141/61
--- NOTE | 2019-09-30 14:15 | NUR ---
PT IN FOR WEEKLY PROLASTIN C INFUSION. DENIES COMPLAINTS. DC'D HOME IN GOOD CONDITION
== END ==
LOC: OPONC 08:49
DX: E88.01 Alpha-1-antitrypsin deficiency (principal)
CPT/HCPCS: 95000

== ENCOUNTER → 2019-10-07 | Outpatient (CLI) | payer OTHER, BC ==
--- NOTE | 2019-10-07 14:59 | NUR ---
PT IN FOR WEEKLY PROLASTIN C INFUSION. THERAPY COMPLETED WITH NO ISSUES. PT DC'D TO HOME
== END ==
LOC: OPONC 10-06 09:24
DX: E88.01 Alpha-1-antitrypsin deficiency (principal)
CPT/HCPCS: 95000

== ENCOUNTER → 2019-10-14 | Outpatient (CLI) | payer OTHER, BC ==
[2019-10-14 13:05] VITALS: BP 126/61
--- NOTE | 2019-10-14 14:01 | NUR ---
VS FROM LAST VISIT 10/06/19 WERE OMMITTED, THERE WERE 125/54 60 97% 97.6 18 THIS VISIT PT HAD NO NEW COMPLAINTS, SHE RECIEVED HER INFUSION WITH NO ISSUES, SHE DC'D TO HOME WITH NO COMPLICATIONS
== END ==
LOC: OPONC 10-13 14:07
DX: E88.01 Alpha-1-antitrypsin deficiency (principal)
CPT/HCPCS: 95000

== ENCOUNTER → 2019-10-21 | Outpatient (CLI) | payer OTHER, BC ==
[2019-10-21 13:40] VITALS: BP 118/55
--- NOTE | 2019-10-21 16:37 | NUR ---
PT IN FOR WEEKLY INFUSION, DC'D HOME IN GOOD CONDITION
== END ==
LOC: OPONC 13:26
DX: E88.01 Alpha-1-antitrypsin deficiency (principal)
CPT/HCPCS: 95000

== ENCOUNTER → 2019-10-28 | Outpatient (CLI) | payer OTHER, BC ==
[2019-10-28 13:00] VITALS: BP 124/61
--- NOTE | 2019-10-28 13:48 | NUR ---
INFUSION COMPLETED WITH NO SIGNS OF AN ADVERSE REACTIONS. VITALS WNL
== END ==
LOC: OPONC 13:08
DX: E88.01 Alpha-1-antitrypsin deficiency (principal)
CPT/HCPCS: 95000

== ENCOUNTER → 2019-11-03 | Outpatient (CLI) | payer OTHER, BC ==
[2019-11-03 13:25] VITALS: BP 121/54
--- NOTE | 2019-11-03 14:08 | NUR ---
IN FOR WEEKLY PROLASTIN C INFUSION. STATED FEELING WELL. LUNGS CLEAR. TOLERATED INFUSION WITHOUT INCIDENT. REMOVED IV AND DISMISSED IN STABLE CONDITION.
== END ==
LOC: OPONC 09:38
DX: E88.01 Alpha-1-antitrypsin deficiency (principal)
CPT/HCPCS: 95000

== ENCOUNTER → 2019-11-04 | Outpatient (CLI) | payer OTHER, BC ==
[~2019-11-04] MED LIST changes: +EVENITY (2210 MG/2.3 SUBQ; +PROLIA60 MG/1 ML SUBQ; +TORSEMIDE10 MG PO
== END ==
LOC: SJCVC 13:38 → SJCVCIMAG 13:38
PROVIDERS: ATTEND Internal Medicine Cardiovascular Disease
DX: I08.3 Combined rheumatic disorders of mitral, aortic and tricuspid valves (principal); I44.0 Atrioventricular block, first degree; I65.23 Occlusion and stenosis of bilateral carotid arteries; I10 Essential (primary) hypertension; I27.20 Pulmonary hypertension, unspecified; I48.91 Unspecified atrial fibrillation; E78.2 Mixed hyperlipidemia; D68.59 Other primary thrombophilia

== ENCOUNTER → 2019-11-10 | Outpatient (CLI) | payer OTHER, BC ==
[~2019-11-10] MED LIST changes: -EVENITY (2210 MG/2.3 SUBQ; -PROLIA60 MG/1 ML SUBQ; -TORSEMIDE10 MG PO
[2019-11-10 13:00] VITALS: BP 125/58
--- NOTE | 2019-11-10 13:51 | NUR ---
IN FOR WEEKLY PROLASTIN C INFUSION. STATED FEELING WELL. TOLERATED INFUSION WITHOUT INCIDENT. DISMISSED IN STABLE CONDITION.
== END ==
LOC: OPONC 09:22
DX: E88.01 Alpha-1-antitrypsin deficiency (principal)
CPT/HCPCS: 95000

== ENCOUNTER → 2019-11-17 | Outpatient (CLI) | payer OTHER, BC ==
[2019-11-17 12:46] VITALS: BP 133/55
--- NOTE | 2019-11-17 12:50 | NUR ---
IN FOR WEEKLY PROLASTIN C INFUSION. STATED FEELING WELL. PATIENT WEARING A MASK. VITAL SIGNS GOOD. TOLERATED INFUSION WITHOUT INCIDENT. REMOVED IV AND DISMISSED IN GOOD CONDITION.
== END ==
LOC: OPONC 08:29
DX: E88.01 Alpha-1-antitrypsin deficiency (principal)
CPT/HCPCS: 95000

== ENCOUNTER → 2019-11-24 | Outpatient (CLI) | payer OTHER, BC ==
[~2019-11-24] MED LIST changes: +EVENITY (2210 MG/2.3 SUBQ; +PROLIA60 MG/1 ML SUBQ; +TORSEMIDE10 MG PO
[2019-11-24 13:11] VITALS: BP 124/48
--- NOTE | 2019-11-24 15:15 | NUR ---
IN FOR WEEKLY PROLASTIN C INFUSION. STATED FEELING WELL. LUNGS CLEAR. IV STARTED X 1 STICK IN RIGHT FOREARM. TOLERATED INFUSION WITHOUT INCIDENT. REMOVED IV AND DISMISSED IN STABLE CONDITION.
== END ==
LOC: OPONC 10:35
DX: E88.01 Alpha-1-antitrypsin deficiency (principal)
CPT/HCPCS: 95000

== ENCOUNTER → 2019-12-01 | Outpatient (CLI) | payer OTHER, BC ==
[2019-12-01 13:05] VITALS: BP 116/55
--- NOTE | 2019-12-01 14:05 | NUR ---
IN FOR WEEKLY PROLASTIN C INFUSION. STATED FEELING WELL. TOLERATED INFUSION WITHOUT INCIDENT. DISMISSED IN STABLE CONDITION.
== END ==
LOC: OPONC 09:12
DX: E88.01 Alpha-1-antitrypsin deficiency (principal)
CPT/HCPCS: 95113

== ENCOUNTER → 2019-12-08 | Outpatient (CLI) | payer OTHER, BC ==
[2019-12-08 13:03] VITALS: BP 115/52
--- NOTE | 2019-12-08 14:10 | NUR ---
IN FOR WEEKLY PROLASTIN C INFUSION. STATED FEELING WELL. VITAL SIGNS GOOD. TOLERATED INFUSION WITHOUT INCIDENT. REMOVED IV AND DISMISSED IN STABLE CONDITION.
== END ==
LOC: OPONC 08:40
DX: E88.01 Alpha-1-antitrypsin deficiency (principal)
CPT/HCPCS: 95113

== ENCOUNTER → 2019-12-15 | Outpatient (CLI) | payer OTHER, BC ==
[2019-12-15 15:01] VITALS: BP 135/58
--- NOTE | 2019-12-15 15:04 | NUR ---
IN FOR WEEKLY PROLASTIN C INFUSION. STATED FEELING WELL. LUNGS CLEAR. TOLERATED INFUSION WITHOUT INCIDENT. REMOVED IV AND DISMISSED IN STABLE CONDITION.
== END ==
LOC: OPONC 08:42
DX: E88.01 Alpha-1-antitrypsin deficiency (principal)
CPT/HCPCS: 95113

== ENCOUNTER → 2019-12-22 | Outpatient (CLI) | payer OTHER, BC ==
[~2019-12-22] VITALS: Ht 152.4 cm; Wt 49.9 kg
[2019-12-22 13:24] VITALS: BP 123/54
--- NOTE | 2019-12-22 13:51 | NUR ---
IN FOR WEEKLY PROLASTIN C INFUSION. STATED FEELING WELL. TOLERATED INFUSION WITHOUT INCIDENT. REMOVED IV AND DISMISSED IN STABLE CONDITION.
== END ==
LOC: EDSTATUS 08:45 → OPONC 09:34
DX: E88.01 Alpha-1-antitrypsin deficiency (principal)
CPT/HCPCS: 95113

== ENCOUNTER → 2019-12-29 | Outpatient (CLI) | payer OTHER, BC ==
[2019-12-29 13:19] VITALS: BP 108/48
--- NOTE | 2019-12-29 13:48 | NUR ---
IN FOR WEEKLY PROLASTIN C INFUSION. STATED FEELING WELL. TOLERATED INFUSION WITHOUT INCIDENT. REMOVED IV AND DISMISSED IN GOOD CONDITION.
== END ==
LOC: OPONC 09:10
DX: E88.01 Alpha-1-antitrypsin deficiency (principal)
CPT/HCPCS: 95113

== ENCOUNTER → 2019-12-30 | Outpatient (CLI) | payer OTHER, BC | LOC: SJCVCIMAG 08:10 | DX: R94.31 Abnormal electrocardiogram [ECG] [EKG] (principal); I45.10 Unspecified right bundle-branch block; I49.3 Ventricular premature depolarization; I08.3 Combined rheumatic disorders of mitral, aortic and tricuspid valves; I10 Essential (primary) hypertension; I27.20 Pulmonary hypertension, unspecified; I48.91 Unspecified atrial fibrillation; I65.23 Occlusion and stenosis of bilateral carotid arteries; I87.2 Venous insufficiency (chronic) (peripheral); E78.2 Mixed hyperlipidemia; D68.59 Other primary thrombophilia; Z79.899 Other long term (current) drug therapy ==

== ENCOUNTER → 2020-01-05 | Outpatient (CLI) | payer OTHER, BC ==
[2020-01-05 14:11] VITALS: BP 121/54
--- NOTE | 2020-01-05 14:16 | NUR ---
IN FOR WEEKLY PROLASTIN C INFUSION. STATED FEELING WELL. TOLERATED INFUSION WITHOUT INCIDENT. REMOVED IV AND DISMISSED IN STABLE CONDITION.
== END ==
LOC: OPONC 12:23
DX: E88.01 Alpha-1-antitrypsin deficiency (principal)
CPT/HCPCS: 95113

== ENCOUNTER → 2020-01-12 | Outpatient (CLI) | payer OTHER, BC | LOC: OPONC 09:56 | DX: E88.01 Alpha-1-antitrypsin deficiency (principal); J43.8 Other emphysema ==

== ENCOUNTER → 2020-01-19 | Outpatient (CLI) | payer OTHER, BC ==
[2020-01-19 13:20] VITALS: BP 125/62
--- NOTE | 2020-01-19 13:45 | NUR ---
HERE FOR WEEKLY PROLASTIN C INFUSION. REPORTS DOING WELL, NO CONCERNS NOTED. USING O2 TO SLEEP. TOLERATED INFUSION WITHOUT INCIDENT. DISMISSED IN STABLE CONDITION. SCHEDULED TO RETURN NEXT WEEK.
== END ==
LOC: OPONC 09:10
PROVIDERS: ATTEND Family Medicine
DX: E88.01 Alpha-1-antitrypsin deficiency (principal)
CPT/HCPCS: 95000

== ENCOUNTER → 2020-01-26 | Outpatient (CLI) | payer OTHER, BC ==
[2020-01-26 13:56] VITALS: BP 128/57
--- NOTE | 2020-01-26 13:59 | NUR ---
IN FOR WEEKLY PROLASTIN C INFUSION. STATED FEELING WELL. SLIGHT WHEEZING NOTED TO LEFT LOBE. MOSTLY CLEAR. TOLERATED INFUSION WITHOUT INCIDENT. REMOVED IV AND DISMISSED IN STABLE CONDITION.
== END ==
LOC: OPONC 08:39
PROVIDERS: ATTEND Family Medicine
DX: E88.01 Alpha-1-antitrypsin deficiency (principal)
CPT/HCPCS: 95113

== ENCOUNTER → 2020-02-02 | Outpatient (CLI) | payer OTHER, BC ==
[2020-02-02 15:23] VITALS: BP 106/52
--- NOTE | 2020-02-02 15:26 | NUR ---
IN FOR WEEKLY PROLASTIN C INFUSION. STATED FEELING WELL. TOLERATED INFUSION WITHOUT INCIDENT. DISMISSED IN STABLE CONDITION.
== END ==
LOC: OPONC 10:00
PROVIDERS: ATTEND Family Medicine
DX: E88.01 Alpha-1-antitrypsin deficiency (principal)
CPT/HCPCS: 95113

== ENCOUNTER → 2020-02-09 | Outpatient (CLI) | payer OTHER, BC ==
[2020-02-09 13:02] VITALS: BP 108/49
--- NOTE | 2020-02-09 15:12 | NUR ---
IN FOR WEEKLY PROLASTIN C INFUSION. STATED FEELING WELL. LUNGS CLEAR. TOLERATED INFUSION WITHOUT INCIDENT. REMOVED IV AND DISMISSED IN STABLE CONDITION.
== END ==
LOC: OPONC 09:42
PROVIDERS: ATTEND Family Medicine
DX: E88.01 Alpha-1-antitrypsin deficiency (principal)
CPT/HCPCS: 95113

== ENCOUNTER → 2020-02-16 | Outpatient (CLI) | payer OTHER, BC ==
[2020-02-16 13:15] VITALS: BP 111/72
--- NOTE | 2020-02-16 13:40 | NUR ---
HERE FOR WEEKLY PROLASTIN C INFUSION. REPORTS DOING WELL. LOOKS GOOD. TOLERATED INFUSION WITHOUT INCIDENT. DISMISSED IN STABLE CONDITION. SCHEDULED TO RETURN NEXT .
== END ==
LOC: OPONC 08:21
PROVIDERS: ATTEND Family Medicine
DX: E88.01 Alpha-1-antitrypsin deficiency (principal)
CPT/HCPCS: 95000

== ENCOUNTER → 2020-02-23 | Outpatient (CLI) | payer OTHER, BC ==
[2020-02-23 14:54] VITALS: BP 112/77
--- NOTE | 2020-02-23 14:56 | NUR ---
IN FOR WEEKLY PROLASTIN C INFUSION. STATED FEELING WELL. VITAL SIGNS GOOD. TOLERATED INFUSION WITHOUT INCIDENT. REMOVED IV AND DISMISSED IN STABLE CONDITION.
== END ==
LOC: OPONC 08:30
PROVIDERS: ATTEND Family Medicine
DX: E88.01 Alpha-1-antitrypsin deficiency (principal)
CPT/HCPCS: 95113

== ENCOUNTER → 2020-03-01 | Outpatient (CLI) | payer OTHER, BC ==
[2020-03-01 13:48] VITALS: BP 116/57
--- NOTE | 2020-03-01 13:54 | NUR ---
IN FOR WEEKLY PROLASTIN C INFUSION. STATED FEELING WELL. VITAL SIGNS GOOD. TOLERATED INFUSION WITHOUT INCIDENT. IV REMOVED AND DISMISSED IN GOOD CONDITION.
== END ==
LOC: OPONC 08:47
PROVIDERS: ATTEND Family Medicine
DX: E88.01 Alpha-1-antitrypsin deficiency (principal)
CPT/HCPCS: 95113

== ENCOUNTER → 2020-03-08 | Outpatient (CLI) | payer OTHER, BC ==
[2020-03-08 15:35] VITALS: BP 124/54
--- NOTE | 2020-03-08 15:38 | NUR ---
IN FOR WEEKLY PROLASTIN C INFUSION. STATED FEELING WELL. VITAL SIGNS STABLE. TOLERATED INFUSION WITHOUT INCIDENT. REMOVED IV AND DISMISSED IN STABLE CONDITION.
== END ==
LOC: OPONC 08:07
PROVIDERS: ATTEND Family Medicine
DX: E88.01 Alpha-1-antitrypsin deficiency (principal)
CPT/HCPCS: 95113

== ENCOUNTER → 2020-03-22 | Outpatient (CLI) | payer OTHER, BC ==
[2020-03-15 14:30] VITALS: BP 108/51
--- NOTE | 2020-03-15 14:32 | NUR ---
IN FOR WEEKLY PROLASTIN C INFUSION. STATED FEELING WELL. TOLERATED INFUSION WITHOUT INCIDENT. REMOVED IV AND DISMISSED IN STABLE CONDITION.
[2020-03-22 14:51] VITALS: BP 119/54
--- NOTE | 2020-03-22 14:55 | NUR ---
IN FOR WEEKLY PROLASTIN C INFUSION. STATED FEELING WELL. O2 SAT 95% ON RA. IV PLACED AND INFUSED PROLASTIN C OVER 15 MINUTES AND TOLERATED WELL. REMOVED IV AND DISMISSED IN STABLE CONDITION.
== END ==
LOC: OPONC 03-15 09:15
PROVIDERS: ATTEND Family Medicine
DX: E88.01 Alpha-1-antitrypsin deficiency (principal)
CPT/HCPCS: 95113

== ENCOUNTER → 2020-03-29 | Outpatient (CLI) | payer OTHER, BC ==
[2020-03-29 13:30] VITALS: BP 115/62
--- NOTE | 2020-03-29 13:40 | NUR ---
HERE FOR WEEKLY PROLASTIN C. REPORTS DOING WELL, FEELING WELL. SLIGHT RHONCHI HEARD ON EXPIRATION MOSTLY L LUNG BUT OTHERWISE CLEAR LUNG SOUNDS. PT TOLERATED INFUSION WITHOUT INCIDENT. DISMISSED IN STABLE CONDITION. SCHEDULED TO RETURN AGAIN IN ONE WEEK.
== END ==
LOC: OPONC 07:52
PROVIDERS: ATTEND Family Medicine
DX: E88.01 Alpha-1-antitrypsin deficiency (principal)
CPT/HCPCS: 95000

== ENCOUNTER → 2020-04-06 | Outpatient (CLI) | payer OTHER, BC ==
[2020-04-06 13:55] VITALS: BP 128/59
== END ==
LOC: OPONC 07:52
PROVIDERS: ATTEND Family Medicine
DX: E88.01 Alpha-1-antitrypsin deficiency (principal)
CPT/HCPCS: 95000

== ENCOUNTER → 2020-04-13 | Outpatient (CLI) | payer OTHER, BC ==
[2020-04-13 13:15] VITALS: BP 111/60
--- NOTE | 2020-04-13 14:13 | NUR ---
HERE FOR WEEKLY PROLASTIN C INFUSION. REPORTS DOING WELL, FEELING WELL. NO CONCERNS NOTED. TOLERATED INFUSION WITHOUT INCIDENT. DISMISSED IN STABLE CONDITION. SCHEDULED TO RETURN IN ONE WEEK.
== END ==
LOC: OPONC 07:41
PROVIDERS: ATTEND Family Medicine
DX: E88.01 Alpha-1-antitrypsin deficiency (principal)
CPT/HCPCS: 95000

== ENCOUNTER → 2020-04-20 | Outpatient (CLI) | payer OTHER, BC ==
[2020-04-20 14:35] VITALS: BP 136/61
--- NOTE | 2020-04-20 17:02 | NUR ---
HERE FOR WEEKLY PROLASTIN C INFUSION. REPORTS DOING WELL, FEELING WELL. NO CONCERNS NOTED. TOLERATED INFUSION WITHOUT INCIDENT. DISMISSED IN STABLE CONDITION. SCHEDULED TO RETURN AGAIN IN ONE WEEK.
== END ==
LOC: OPONC 08:53
PROVIDERS: ATTEND Family Medicine
DX: E88.01 Alpha-1-antitrypsin deficiency (principal)
CPT/HCPCS: 95000

== ENCOUNTER → 2020-04-27 | Outpatient (CLI) | payer OTHER, BC ==
[2020-04-27 13:36] VITALS: BP 122/61
--- NOTE | 2020-04-27 13:59 | NUR ---
HERE FOR WEEKLY PROLASTIN C INFUSION. REPORTS DOING WELL, FEELING WELL. NO CONCERNS NOTED. TOLERATED INFUSION WITHOUT INCIDENT. DISMISSED IN STABLE CONDITION. SCHEDULED TO RETURN AGAIN IN ONE WEEK.
== END ==
LOC: OPONC 07:52
PROVIDERS: ATTEND Family Medicine
DX: E88.01 Alpha-1-antitrypsin deficiency (principal)
CPT/HCPCS: 95000

== ENCOUNTER → 2020-05-04 | Outpatient (CLI) | payer OTHER, BC ==
[2020-05-04 13:10] VITALS: BP 110/68
--- NOTE | 2020-05-04 13:50 | NUR ---
HERE FOR WEEKLY PROLASTIN C INFUSION. REPORTS DOING WELL. DOES GET DYSPNEIC WITH ANY ACTIVITY BUT TYPICALLY ONLY USES O2 AT HS. STATES SATS RECOVER QUICKLY WITH REST. LUNGS SOUND CLEAR. PT TOLERATED INFUSION WITHOUT INCIDENT. DISMISSED IN STABLE CONDITION. SCHEDULED TO RETURN AGAIN IN ONE WEEK.
== END ==
LOC: OPONC 10:43
PROVIDERS: ATTEND Family Medicine
DX: E88.01 Alpha-1-antitrypsin deficiency (principal)
CPT/HCPCS: 95000

== ENCOUNTER → 2020-05-11 | Outpatient (CLI) | payer OTHER, BC ==
[2020-05-11 14:30] VITALS: BP 118/55
== END ==
LOC: OPONC 08:56
PROVIDERS: ATTEND Family Medicine
DX: E88.01 Alpha-1-antitrypsin deficiency (principal)
CPT/HCPCS: 95000

== ENCOUNTER → 2020-05-18 | Outpatient (CLI) | payer OTHER, BC ==
[2020-05-18 14:15] VITALS: BP 143/68
--- NOTE | 2020-05-18 19:19 | NUR ---
HERE FOR WEEKLY PROLASTIN C INFUSION. REPORTS DOING OK BUT HAS NOTICED INCREASING DYSPNEA WITH EXERTION. WEARS O2 OFF AND ON NEEDED AND DURING HS. LUNGS ARE CLEAR. PT BEGINNING TO WONDER IF THIS MAY BE R/T HER PULMONARY HYPERTENSION AND VALVE ISSUES. PT PLANS TO F/U WITH HER PCP AND/OR METAL CUT OFF SAW TENDER. TOLERATED INFUSION WITHOUT INCIDENT. DISMISSED IN STABLE CONDITION.
== END ==
LOC: OPONC 12:19
PROVIDERS: ATTEND Family Medicine
DX: E88.01 Alpha-1-antitrypsin deficiency (principal)
CPT/HCPCS: 95000

== ENCOUNTER → 2020-05-25 | Outpatient (CLI) | payer OTHER, BC ==
[2020-05-25 08:15] VITALS: BP 119/69
--- NOTE | 2020-05-25 08:40 | NUR ---
HERE FOR WEEKLY PROLASTIN C INFUSION. REPORTS DOING WELL, NO COUGH OR LUNG CONGESTION BUT NOTES CONTINUED DYPSNEA ON EXPERTION WHICH SEEMS TO BE WORSENING. PT IS GOING TO F/U WITH DR. SUAREZ AND/OR CHEF GERMAN TO GET AN ECHO DONE TO SEE IF THIS IS CARDIAC RELATED. TOLERATED INFUSION WITHOUT INCIDENT. DISMISSED IN STABLE CONDITION. SCHEDULED TO RETURN NEXT WEEK ON SAT.
== END ==
LOC: OPONC 07:40
PROVIDERS: ATTEND Family Medicine
DX: E88.01 Alpha-1-antitrypsin deficiency (principal)
CPT/HCPCS: 95000

== ENCOUNTER → 2020-06-01 | Outpatient (CLI) | payer OTHER, BC ==
[2020-06-01 14:15] VITALS: BP 125/65
--- NOTE | 2020-06-01 14:45 | NUR ---
HERE FOR WEEKLY PROLASTIN C INFUSION. REPORTS DOING WELL. NO CONCERNS NOTED. TOLERATED INFUSION WITHOUT INCIDENT. DISMISSED IN STABLE CONDITION. SCHEDULED TO RETURN AGAIN NEXT WEEK.
== END ==
LOC: OPONC 12:24
PROVIDERS: ATTEND Family Medicine
DX: E88.01 Alpha-1-antitrypsin deficiency (principal)
CPT/HCPCS: 95000

== ENCOUNTER → 2020-06-02 | Outpatient (CLI) | payer OTHER, BC | LOC: LAB 14:23 | PROVIDERS: ATTEND Family Medicine | DX: R05 Cough (principal); Z20.828 Contact with and (suspected) exposure to other viral communicable diseases ==

== ENCOUNTER → 2020-06-08 | Outpatient (CLI) | payer OTHER, BC ==
[2020-06-08 08:15] VITALS: BP 136/61
== END ==
LOC: OPONC 07:46
PROVIDERS: ATTEND Family Medicine
DX: E88.01 Alpha-1-antitrypsin deficiency (principal)
CPT/HCPCS: 95000

== ENCOUNTER → 2020-06-15 | Outpatient (CLI) | payer OTHER, BC ==
[2020-06-15 08:40] VITALS: BP 134/74
--- NOTE | 2020-06-15 09:20 | NUR ---
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 REPORTS DOING WELL EXCEPT FOR CONTINUED DYSPNEA WITH EXERTION. USING HER O2 FOR ACTIVITY AND HS. NO INCREASE, NO S/S COVID NOTED. SEEING HER SUBSTATION ELECTRICIAN IN A COUPLE WEEKS FOR TESTING. TOLERATED INFUSION WITHOUT INCIDENT. DISMISSED IN STABLE CONDITION. WILL RETURN AGAIN IN ONE WEEK.
== END ==
LOC: OPONC 09:37
PROVIDERS: ATTEND Family Medicine
DX: E88.01 Alpha-1-antitrypsin deficiency (principal)
CPT/HCPCS: 95000

== ENCOUNTER → 2020-06-20 | Outpatient (CLI) | payer OTHER, BC | LOC: SJCVCIMAG 14:04 → SJCVC 14:04 | PROVIDERS: ATTEND Internal Medicine Cardiovascular Disease | DX: I08.2 Rheumatic disorders of both aortic and tricuspid valves (principal); R94.31 Abnormal electrocardiogram [ECG] [EKG]; I11.9 Hypertensive heart disease without heart failure; E78.2 Mixed hyperlipidemia; E88.09 Other disorders of plasma-protein metabolism, not elsewhere classified; I48.91 Unspecified atrial fibrillation; I71.4 Abdominal aortic aneurysm, without rupture; I87.2 Venous insufficiency (chronic) (peripheral); I27.20 Pulmonary hypertension, unspecified; D68.59 Other primary thrombophilia; Z79.899 Other long term (current) drug therapy ==

== ENCOUNTER → 2020-06-22 | Outpatient (CLI) | payer OTHER, BC ==
[2020-06-22 13:15] VITALS: BP 125/63
--- NOTE | 2020-06-22 13:49 | NUR ---
HERE FOR WEEKLY PROLASTIN C INFUSION. NOTES INCREASE IN DYSPNEA. DENIES ANY RECENT INFECTION, FEVER, NEW COUGH, INCREASE IN SECRETIONS. DOES HAVE DIMINISHED BREATH SOUNDS BILAT WITH RHONCHI NOTED THROUGHOUT. PT STATES SHE SAW HER STEWARD/STEWARDESS DECK LAST WEEK AND HAS PFTs SCHEDULED FOR NEXT WEEK ON . HAVING A COVID TEST PRIOR ON SAT. REMAINS ON HER PREDNISONE 10MG DAILY. HAS KEPT IN CONTACT WITH HER ENDS DOWN CHECKER, DR. ALVARADO. ENCOURAGED PT TO ALSO LET DR. SUAREZ KNOW IF SHE BECOMES MORE SHORT OF AIR. USING O2 WITH ANY ACTIVITY NOW AND AT HS. TOLERATED INFUSION WITHOUT INCIDENT. DISMISSED IN STABLE CONDITION. SCHEDULED TO RETURN AGAIN IN ONE WEEK.
== END ==
LOC: OPONC 13:11
PROVIDERS: ATTEND Family Medicine
DX: E88.01 Alpha-1-antitrypsin deficiency (principal)
CPT/HCPCS: 95000

== ENCOUNTER → 2020-06-29 | Outpatient (CLI) | payer OTHER, BC ==
[2020-06-29 13:07] VITALS: BP 134/67
--- NOTE | 2020-06-29 13:40 | NUR ---
HERE FOR WEEKLY PROLASTIN C INFUSION. REPORTS DOING OK, NOTHING NEW. STILL HAVNING DYSPNEA ON EXERTION, NO WORSE. NO WHEEZING NOTED THIS WEEK. NO COUGH OR MUCOUS. USING 02 AT 2L MOST OF THE TIME NOW. STATES HER PFT TEST GOT POSTPONED D/T OFFICE ISSUE, NOW SCHEDULED FOR JULY. PT TOLERATED INFUSION WITHOUT INCIDENT. DISMISSED IN STABLE CONDITION. SCHEDULED TO RETURN AGAIN NEXT WEEK.
== END ==
LOC: OPONC 11:35
PROVIDERS: ATTEND Family Medicine
DX: E88.01 Alpha-1-antitrypsin deficiency (principal)
CPT/HCPCS: 95000

== ENCOUNTER → 2020-07-06 | Outpatient (CLI) | payer OTHER, BC ==
[2020-07-06 08:10] VITALS: BP 148/74
--- NOTE | 2020-07-06 10:20 | NUR ---
HERE FOR WEEKLY PROLASTIN. STILL SHORT OF BREATH WITH EXERCTION. WILL RETURN IN ONE WEEK FOR NEXT INFUSION. O2 AT 2LITERS NC. NO NEW COMPLAINTS. TOLERATED INFUSION WITHOUT ADVERSE REACTION. DISCHARGED PER WHEELCHAIR IN STABLE CONDITION.
== END ==
LOC: OPONC 07:32
PROVIDERS: ATTEND Family Medicine
DX: E88.01 Alpha-1-antitrypsin deficiency (principal)
CPT/HCPCS: 95000

== ENCOUNTER → 2020-07-13 | Outpatient (CLI) | payer OTHER, BC ==
[2020-07-13 08:14] VITALS: BP 128/57
--- NOTE | 2020-07-13 08:45 | NUR ---
HERE FOR WEEKLY PROLASTIN C INFUSION. REPORTS DOING WELL, ABOUT THE SAME. STILL HAS DYSPNEA WITH ANY EXERTION, USING O2 AT 2L WITH ANY ACTIVITY AND WITH SLEEP. SCHEDULED FOR HER PFT THIS WEEK AND WILL SEE DR. WRAY IN FOLLOW UP AFTER. CONTINUES ON HER MAINTENANCE PREDNISONE. NO LUNG CONGESTION OR MUCOUS PRODUCTION NOTED. TOLERATED INFUSION WITHOUT INCIDENT. DISMISSED IN STABLE CONDITION. SCHEDULED TO RETURN AGAIN NEXT SAT.
== END ==
LOC: OPONC 07:24
PROVIDERS: ATTEND Family Medicine
DX: E88.01 Alpha-1-antitrypsin deficiency (principal)
CPT/HCPCS: 95000

== ENCOUNTER → 2020-07-20 | Outpatient (CLI) | payer OTHER, BC ==
[2020-07-20 14:35] VITALS: BP 117/51
--- NOTE | 2020-07-20 15:00 | NUR ---
HERE FOR WEEKLY PROLASTIN C INFUSION. REPORTS DOING WELL EXCEPT STILL DOES HAVE EXERTIONAL DYSPNEA. USING O2 FOR SLEEP AND WITH ACTIVITY. RECOVERS QUICKLY WITH REST. HAVING HER PFT DONE THIS WEEK ON SATURDAY (HAS BEEN DELAYED A COUPLE TIMES). TOLERATED INFUSION WITHOUT INCIDENT. DISMISSED IN STABLE CONDITION. SCHEDULED TO RETURN AGAIN IN ONE WEEK.
== END ==
LOC: OPONC 13:23
PROVIDERS: ATTEND Family Medicine
DX: E88.01 Alpha-1-antitrypsin deficiency (principal)
CPT/HCPCS: 95000

== ENCOUNTER → 2020-07-27 | Outpatient (CLI) | payer OTHER, BC ==
[2020-07-27 13:10] VITALS: BP 135/71
--- NOTE | 2020-07-27 13:55 | NUR ---
HERE FOR WEEKLY PROLASTIN C INFUSION. REPORTS DOING WELL. HAS ONGOING ISSUES WITH DYSPNEA ON EXERTION. USING 02 WITH ACTIVITY AND SLEEP. AWAITS RESULTS FROM HER PFT DONE LAST WEEK. TOLERATED INFUSION WITHOUT INCIDENT. DISMISSED IN STABLE CONDITION. SCHEDULED TO RETURN AGAIN NEXT SAT.
== END ==
LOC: OPONC 12:49
PROVIDERS: ATTEND Family Medicine
DX: E88.01 Alpha-1-antitrypsin deficiency (principal)
CPT/HCPCS: 95000

== ENCOUNTER → 2020-08-03 | Outpatient (CLI) | payer OTHER, BC ==
[2020-08-03 13:15] VITALS: BP 104/61
--- NOTE | 2020-08-03 13:45 | NUR ---
HERE FOR WEEKLY PROLASTIN C INFUSION. REPORTS DOING OK, NO NEW ISSUES. HAS ONGOING DYSPNEA WITH EXERTION. USING 02 2L WITH EXERCISE AND FOR SLEEP. LUNGS SOUND CLEAR. PT GOT COVID TESTED TODAY D/T POSSIBLE EXPOSURE ON . TOLERATED INFUSION WITHOUT INCIDENT. DISMISSED IN STABLE CONDITION. SCHEDULED TO RETURN AGAIN NEXT WEEK.
== END ==
LOC: OPONC 10:30
PROVIDERS: ATTEND Family Medicine
DX: E88.01 Alpha-1-antitrypsin deficiency (principal)
CPT/HCPCS: 95000

== ENCOUNTER → 2020-08-10 | Outpatient (CLI) | payer OTHER, BC ==
[2020-08-10 13:40] VITALS: BP 117/66
--- NOTE | 2020-08-10 14:10 | NUR ---
HERE FOR WEEKLY PROLASTIN C INFUSION. REPORTS DOING WELL, FEELING WELL. HAS CONTINUED ISSUE WITH DYSPNEA ON EXERTION BUT RECENT ILLNESS OR CONGESTION. TOLERATED INFUSION WITHOUT INCIDENT. DISMISSED IN STABLE CONDITION.
== END ==
LOC: OPONC 10:56
PROVIDERS: ATTEND Family Medicine
DX: E88.01 Alpha-1-antitrypsin deficiency (principal)
CPT/HCPCS: 95000

== ENCOUNTER → 2020-08-17 | Outpatient (CLI) | payer OTHER, BC ==
[2020-08-17 13:00] VITALS: BP 112/82
--- NOTE | 2020-08-17 13:25 | NUR ---
HERE FOR WEEKLY PROLASTIN C INFUSION. REPORTS DOING THE SAME, FEELING WELL, STILL DYSPNEIC WITH EXERTION, USING HER O2 AT 2L. TOLERATED INFUSION WITHOUT INCIDENT. DISMISSED IN STABLE CONDITION. SCHEDULED TO RETURN IN ONE WEEK.
== END ==
LOC: OPONC 11:12
PROVIDERS: ATTEND Family Medicine
DX: E88.01 Alpha-1-antitrypsin deficiency (principal)
CPT/HCPCS: 95000

== ENCOUNTER → 2020-08-24 | Outpatient (CLI) | payer OTHER, BC ==
[2020-08-24 14:10] VITALS: BP 114/57
--- NOTE | 2020-08-24 14:45 | NUR ---
HERE FOR WEEKLY PROLASTIN C INFUSION. REPORTS DOING WELL, FEELING WELL. STILL DYSPNEIC WITH EXERTION AND USING O2 BUT NO LUNG CONGESTION OR COUGH. TOLERATED INFUSION WITHOUT INCIDENT. DISMISSED IN STABLE CONDITION. SCHEDULED TO RETURN AGAIN IN ONE WEEK.
== END ==
LOC: OPONC 13:25
PROVIDERS: ATTEND Family Medicine
DX: E88.01 Alpha-1-antitrypsin deficiency (principal)
CPT/HCPCS: 95000

== ENCOUNTER → 2020-08-31 | Outpatient (CLI) | payer OTHER, BC ==
[2020-08-31 14:30] VITALS: BP 123/70
--- NOTE | 2020-08-31 15:02 | NUR ---
HERE FOR WEEKLY PROLASTIN C INFUSION. REPORTS DOING WELL. NO CONCERNS NOTED. TOLERATED INFUSION WITHOUT INCIDENT. DISMISSED IN STABLE CONDITION. SCHEDULED TO RETURN NEXT WEEK.
== END ==
LOC: OPONC 14:08
PROVIDERS: ATTEND Family Medicine
DX: E88.01 Alpha-1-antitrypsin deficiency (principal)
CPT/HCPCS: 95000

== ENCOUNTER → 2020-09-07 | Outpatient (CLI) | payer OTHER, BC ==
[2020-09-07 13:11] VITALS: BP 117/78
--- NOTE | 2020-09-07 13:40 | NUR ---
HERE FOR WEEKLY PROLASTIN C INFUSION. REPORTS NO CHANGE, NO CONCERNS. USES 02 2L WITH ACTIVITY AND SLEEP. HAS HAD 1ST COVID VACCINE ALREADY. TOLERATED INFUSION TODAY WITHOUT INCIDENT. DISMISSED IN STABLE CONDITION. WILL RETURN AGIAN IN ONE WEEK.
== END ==
LOC: OPONC 11:07
PROVIDERS: ATTEND Family Medicine
DX: E88.01 Alpha-1-antitrypsin deficiency (principal)
CPT/HCPCS: 95000

== ENCOUNTER → 2020-09-14 | Outpatient (CLI) | payer OTHER, BC ==
[2020-09-14 14:10] VITALS: BP 125/57
--- NOTE | 2020-09-14 14:35 | NUR ---
HERE FOR WEEKLY PROLASTIN C INFUSION. REPORTS DOING WELL. NO CONCERNS NOTED. TOLERATED INFUSION WITHOUT INCIDENT. DISMISSED IN STABLE CONDITION. WILL RETURN AGAIN IN ONE WEEK.
== END ==
LOC: OPONC 14:08
PROVIDERS: ATTEND Family Medicine
DX: E88.01 Alpha-1-antitrypsin deficiency (principal)
CPT/HCPCS: 95000

== ENCOUNTER → 2020-09-21 | Outpatient (CLI) | payer OTHER, BC ==
[2020-09-21 14:18] VITALS: BP 129/70
--- NOTE | 2020-09-21 14:55 | NUR ---
HERE FOR WEEKLY PROLASTIN C INFUSION. REPORTS DOING WELL. NO CONCERNS THO IS DISCOURAGED THAT HER BREATHING ISSUES SEEM TO BE PROGRESSING. STATES EVEN GETS DYSPNEIC WITH GETTING DRESSED NOW. USES 02 AT 2L WITH ACTIVITY AND SLEEP. STATES BOTH HER PCP AND SAXOPHONE PLAYER ARE AWARE. PT DID RECEIVE HER 2ND COVID SHOT LAST WEEK ON DENYS. STATES TOLERATED WELL. TOLERATED INFUSION TODAY WITHOUT INCIDENT. DISMISSED IN STABLE CONDITION. SCHEDULED TO RETURN AGAIN IN ONE WEEK.
== END ==
LOC: OPONC 12:58
PROVIDERS: ATTEND Family Medicine
DX: E88.01 Alpha-1-antitrypsin deficiency (principal)
CPT/HCPCS: 95000

== ENCOUNTER → 2020-09-28 | Outpatient (CLI) | payer OTHER, BC ==
[2020-09-28 14:24] VITALS: BP 134/63
--- NOTE | 2020-09-28 15:20 | NUR ---
HERE FOR WEEKLY PROLASTIN C INFUSION. REPORTS DOING WELL. NO NEW CONCERNS. TOLERATED INFUSION WITHOUT INCIDENT. DISMISSED IN STABLE CONDITION. SCHEDULED TO RETURN AGAIN IN ONE WEEK.
== END ==
LOC: OPONC 12:52
PROVIDERS: ATTEND Family Medicine
DX: E88.01 Alpha-1-antitrypsin deficiency (principal)
CPT/HCPCS: 95000

== ENCOUNTER → 2020-10-05 | Outpatient (CLI) | payer OTHER, BC ==
[2020-10-05 13:05] VITALS: BP 142/70
--- NOTE | 2020-10-05 13:35 | NUR ---
HERE FOR WEEKLY PROLASTIN C INFUSION. REPORTS DOING WELL. NO NEW CONCERNS. USING O2 AT 2L MOST OF THE TIME. TOLERATED INFUSION WITHOUT INCIDENT. DISMISSED IN STABLE CONDITION. SCHEDULED TO RETURN NEXT WEEK ON SAT.
== END ==
LOC: OPONC 11:16
PROVIDERS: ATTEND Family Medicine
DX: E88.01 Alpha-1-antitrypsin deficiency (principal)
CPT/HCPCS: 95000

== ENCOUNTER → 2020-10-12 | Outpatient (CLI) | payer OTHER, BC ==
[2020-10-12 14:18] VITALS: BP 133/72
--- NOTE | 2020-10-12 14:48 | NUR ---
HERE FOR WEEKLY PROLASTIN C INFUSION. REPORTS DOING WELL. NO CONCERNS NOTED. TOLERATED INFUSION WITHOUT INCIDENT. DISMISSED IN STABLE CONDITION. SCHEDULED TO RETURN AGAIN IN ONE WEEK.
== END ==
LOC: OPONC 12:11
PROVIDERS: ATTEND Family Medicine
DX: E88.01 Alpha-1-antitrypsin deficiency (principal)
CPT/HCPCS: 95000

== ENCOUNTER → 2020-10-19 | Outpatient (CLI) | payer OTHER, BC ==
[2020-10-19 13:10] VITALS: BP 143/66
--- NOTE | 2020-10-19 13:35 | NUR ---
HERE FOR WEEKLY PROLASTIN C INFUSION. REPORTS DOING WELL, NO NEW CHANGES. STILL USING 02 AT 2L AND HAS EXERTIONAL DSYPNEA WITH ACTIVITY. TOLERATED INFUSION WITHOUT INCIDENT. DISMISSED IN STABLE CONDITION. SCHEDULED TO RETURN AGAIN NEXT WEEK.
== END ==
LOC: OPONC 10:56
PROVIDERS: ATTEND Family Medicine
DX: E88.01 Alpha-1-antitrypsin deficiency (principal)
CPT/HCPCS: 95000

== ENCOUNTER → 2020-10-26 | Outpatient (CLI) | payer OTHER, BC ==
[2020-10-26 14:23] VITALS: BP 129/62
--- NOTE | 2020-10-26 14:50 | NUR ---
HERE FOR WEEKLY PROLASTIN C INFUSION. REPORTS NO NEW CONCERNS. USES 02 AT 2L MOST OF THE TIME AND STILL HAS EXERTIONAL DYSPNEA. TOLERATED INFUSION WITHOUT INCIDENT. DISMISSED IN STABLE CONDITION. SCHEDULED TO RETURN AGAIN IN ONE WEEK.
== END ==
LOC: OPONC 12:08
PROVIDERS: ATTEND Family Medicine
DX: E88.01 Alpha-1-antitrypsin deficiency (principal)
CPT/HCPCS: 95000

== ENCOUNTER → 2020-11-02 | Outpatient (CLI) | payer OTHER, BC ==
[2020-11-02 14:20] VITALS: BP 145/72
--- NOTE | 2020-11-02 14:55 | NUR ---
HERE FOR WEEKLY PROLASTIN C INFUSION. REPORTS DOING WELL WITH ONGOING ISSUES WITH DYSPNEA ON EXERTION. NO MUCOUS, LUNGS SOUND CLEAR, USES 02 AT 2L. TOLERATED INFUSION WITHOUT INCIDENT. DISMISSED IN STABLE CONDITION. SCHEDULED TO RETURN AGAIN IN ONE WEEK.
== END ==
LOC: OPONC 11:13
PROVIDERS: ATTEND Family Medicine
DX: E88.01 Alpha-1-antitrypsin deficiency (principal)
CPT/HCPCS: 95000

== ENCOUNTER → 2020-11-09 | Outpatient (CLI) | payer OTHER, BC ==
[2020-11-09 14:10] VITALS: BP 155/83
--- NOTE | 2020-11-09 14:35 | NUR ---
HERE FOR WEEKLY PROLASTIN C INFUSION. REPORTS DOING WELL. NO NEW CONCERNS. ONGOING ISSUES WITH DYSPNEA WITH EXERTION. USES 02 AT 2L. NO LUNG CONGESTION NOTED. TOLERATED INFUSION WITHOUT INCIDENT. DISMISSED IN STABLE CONDITION. SCHEDULED TO RETURN IN ONE WEEK.
== END ==
LOC: OPONC 15:00
PROVIDERS: ATTEND Family Medicine
DX: E88.01 Alpha-1-antitrypsin deficiency (principal)
CPT/HCPCS: 95000

== ENCOUNTER → 2020-11-16 | Outpatient (CLI) | payer OTHER, BC ==
[2020-11-16 14:25] VITALS: BP 134/59
--- NOTE | 2020-11-16 14:32 | NUR ---
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 PATIENT VERY SOB WITH ANY ACTIVITY. WEARS CONTINUOUS O2 AT 2L/NC. O2 SAT 100% ON 2L. IV PLACED IN RIGHT WRIST. TOLERATED INFUSION WITHOUT INCIDENT. REMOVED IV AND DISMISSED IN STABLE CONDITION.
== END ==
LOC: OPONC 12:46
PROVIDERS: ATTEND Family Medicine
DX: E88.01 Alpha-1-antitrypsin deficiency (principal)
CPT/HCPCS: 95000

== ENCOUNTER 2020-11-23 07:57 | Inpatient (IN) | payer OTHER, BC ==
[~2020-11-23] VITALS: Ht 157.5 cm; Wt 53.5 kg
[2020-11-23 07:59] VITALS: BP 165/75
[2020-11-23 08:30] LABS: ABSOLUTE NEUTROPHILS 18.1 thou/uL (1.4-8.2); BASOPHILS 0.2 % (0.0-2.0); EOSINOPHILS 0.4 % (0.0-3.0); HEMATOCRIT 48.3 % (37.0-47.0); HEMOGLOBIN 15.5 gm/dL (12.0-15.0); LYMPHOCYTES 4.2 % (24.0-44.0); MCH 34.7 pg (26.0-34.0); MCHC 32.2 g/dL (28.0-37.0); MONOCYTES 3.1 % (1.0-8.0); PLATELET COUNT 607 thou/uL (150-400); POLYS 92.1 % (36.0-66.0); RBC 4.47 mil/uL (4.20-5.00); RDW 18.2 % (10.5-14.5); WBC 19.7 thou/uL (4.0-11.0)
[2020-11-23 08:41] LABS: ANION GAP 9 mmol/L (7-16); BUN 28 mg/dL (7-18); CALCIUM 9.5 mg/dL (8.5-10.1); CHLORIDE 106 mmol/L (98-107); CO2 29 mmol/L (21-32); CREATININE 1.2 mg/dL (0.6-1.0); GLUCOSE 192 mg/dL (74-106); POTASSIUM 3.9 mmol/L (3.5-5.1); SODIUM 144 mmol/L (136-145)
[2020-11-23 08:43] LABS: URINE BILIRUBIN NEGATIVE (Negative); URINE BLOOD 3+ (Negative); URINE CLARITY CLEAR; URINE COLOR YELLOW; URINE GLUCOSE-RANDOM* NEGATIVE (Negative); URINE KETONES TRACE (Negative); URINE LEUKOCYTES-REFLEX NEGATIVE (Negative); URINE NITRITE-REFLEX NEGATIVE (Negative); URINE PROTEIN (DIPSTICK) NEGATIVE (Negative); URINE SPECIFIC GRAVITY 1.015 (1.005-1.035); URINE UROBILINOGEN 0.2 E.U./dl (0.2-1.0)
[2020-11-23 08:52] LABS: SGOT 35 U/L (15-37); SGPT 42 U/L (14-59); TOTAL BILIRUBIN 1.2 mg/dL (0.2-1.0); TOTAL PROTEIN 7.2 g/dL (6.4-8.2); TROPONIN-I <0.06 ng/mL (<0.06)
[2020-11-23 09:02] LABS: CRYSTALS None Seen /LPF (None Seen); HYALINE CASTS 0-3 Few /LPF (None Seen); SQUAMOUS 0-3 Few /LPF (0-3)
[2020-11-23 09:04] LABS: BACTERIA-REFLEX 1-9 Few /HPF (None Seen); URINE RBC >20 Many /HPF (0-2); URINE WBC-REFLEX None Seen /HPF (0-5)
[2020-11-23] MEDS ORDERED: METAMUCIL PACK3.4 GM PO (09:34)
[2020-11-23 10:36] LABS: ANISOCYTOSIS 2+; MACROCYTES 2+
--- NOTE | 2020-11-23 13:02 | NUR ---
Pt in the ED awaiting inpatient bed for admission to Dr. Lee. This is patient's day to receive her Prolastin C infusion. Order received from Dr. Lee to proceed with today's infusion. Here now to administer her Prolastin C. Pt awake and conversant, family at side. Prolastin infusing without incident.
--- NOTE | 2020-11-23 13:48 | NUR ---
CALLED LAB AT 1339 REGARDING COVID SWAB STILL SHOWING NOT RECEIVED. PER ER CHART, SWAB WAS SENT AROUND 1154 BY KIERRA MAK PERSONNEL STATES IT WAS STILL ON THE COUNTER AND NO ONE HAD RECEIVED IT IN YET. YEMI Green, AGILE PROJECT MANAGER, STATES SHE DID LET SOMEONE KNOW IT WAS ON THE COUNTER WHEN SHE DROPPED IT OFF IN LAB. WILL HAVE TO RESWAB AND RESEND DUE TO IT BEING GREATER THAN 1HR SINCE SWAB WAS COLLECTED, PER LAB.
[2020-11-23 16:37] VITALS: BP 109/51
--- NOTE | 2020-11-23 17:34 | EKG ---
[place] [address] [facility] [place] [address] ELECTROCARDIOGRAM REPORT Name: DONALDO DORSEY Room #: 170-10 ADM IN .R.#: [id number] Admission: 11/23/20 Attend Phys: Mark Lee MD Discharge: Date of : 37 Report #: [id number] [facility] ED Test Date: 2020-11-23 Test Time: 08:02:13 Pat Name: DONALDO DORSEY Department: Room: 170 Gender: F Vp Respiratory: B[place]IA[place] : 1935 Requested By: Zuri Jones Order Number: [id number] MD: Tray Cisneros Measurements Intervals [place] Rate: 90 P: 45 MS: 182 QRS: 5 QRSD: 86 T: 48 QT: 355 QTc: 435 Interpretive Statements Sinus rhythm Consider anterior infarct Compared to ECG 08/27/2018 08:18:01 Ventricular premature complex(es) no longer present Electronically Signed On 11-23-2020 17:34:14 CDT by Tray Cisneros [email or web address] <ELECTRONICALLY SIGNED> By: Tray Cisneros MD, [facility] 11/23/20 1734 [id number] 1 Tray Cisneros MD, FACC /EPI
[2020-11-23 17:42] VITALS: BP 112/52
[2020-11-23 20:02] VITALS: BP 125/60
--- NOTE | 2020-11-23 20:56 | NUR ---
ADMISSION ASSESSMENT COMPLETED. ALERT AND ORIENTED. PLEASANT. PT IS SBA TO THE BATHROOM AND NOTED TO HAVE INCREASED SOA COUPLED WITH WHEEZING. PT ADVISED TO CALL. SHE SWALLOWED HS MEDS, NO SIGNS OF DYSPHAGIA. AFEBRILE. VOIDING WITH NO DIFFICULTY. DENIES PAIN. SCDS IN PLACE. WILL CONTINUE WITH POC TILL EOS.
[2020-11-24 03:45] VITALS: BP 126/55
[2020-11-24 07:05] VITALS: BP 128/64
[2020-11-24 08:44] VITALS: BP 136/61
--- NOTE | 2020-11-24 11:55 | NUR ---
ASSESSMENT: CM REVIEWED CHART AND SPOKE WITH PATIENT AND HER IMELDA AT THE BEDSIDE. PT WAS ADMITTED DUE TO ABDOMINAL PAIN. 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 PT LIVES IN A HOUSE WITH HER . PT REPORTS 2 STEPS TO ENTER THE HOME AND NO STEPS SHE HAS TO USE ONCE INSIDE. PT REPORTS SHE DOES HAVE A BASEMENT BUT DOES NOT GO DOWN THERE. PT REPORTS HAVING A WALKER ALTHOUGH SHE STATES SHE NORMALLY AMBULATES INDEPENDENTLY. PT REPORTS SHE HAD HH YEARS AGO BUT UNSURE THE AGENCY. PT REPORTS THAT SHE SEES DR. DEMARIO CINTRON AT HEMATOLOGY/ONCOLOGY. PT REPORTS SHE HAS BEEN TO ACUTE REHAB HERE IN THE PAST SHE THINKS. CM DISCUSSED ROLE. PT IS HOPEFUL SHE WILL HAVE NO NEEDS AT DISCHARGE. GI IS FOLLOWING PATIENT. CM WILL CONTINUE TO FOLLOW.
[2020-11-24 14:20] LABS: % SATURATION 15 % (20-39); IRON 43 ug/dL (50-170); TIBC 290 ug/dL (250-450)
[2020-11-25 04:24] LABS: HEMATOCRIT 36.2 % (37.0-47.0); MCH 35.4 pg (26.0-34.0); MCHC 32.4 g/dL (28.0-37.0); MCV 109.3 fL (80.0-100.0); RBC 3.31 mil/uL (4.20-5.00); RDW 18.7 % (10.5-14.5); WBC 14.6 thou/uL (4.0-11.0)
[2020-11-25 04:43] LABS: HEMOGLOBIN 11.7 gm/dL (12.0-15.0)
[2020-11-25 04:58] LABS: CALCIUM 8.3 mg/dL (8.5-10.1); CREATININE 0.9 mg/dL (0.6-1.0); POTASSIUM 3.6 mmol/L (3.5-5.1)
--- NOTE | 2020-11-25 06:00 | NUR ---
I CONCUR WITH THE CHARTING BY CHAVEZ KRAMER LPN
--- NOTE | 2020-11-25 06:11 | NUR ---
QUIET NOC NO C/O PAIN OR DISCOMFORT. UNABLE TO OBTAIN SPUTUM SAMPLE NON PRODUCTIVE COUGH.PT INQUIRED ABOUT VISIT FROM PULMONARY [employer] M[employer]AGE UNDERWRITER, OFF GOING NURSE HAD CALL OUT FOR A RESPONSE. NO RETURN CALL THRU EVENING. FAMILY NOTIFIED. WILL CONTINUE TO MONITOR.
[2020-11-25 08:15] VITALS: BP 129/68
--- NOTE | 2020-11-25 14:06 | NUR ---
Received awake on bed. Due medications given as prescribed, able to swallow meds w/o difficulty. On O2 at 2lpm via nasal cannula. On MS, not on telemetry; no complains and signs of chest pain, crushing sensation and heaviness. On regular diet- tolerating well; no nausea, no vomiting and no abdominal pain noted. Continent of bowel and bladder, able to go to the toilet with standby assist. With SL at R hand- on IV antibiotics. No complains of pain made during assessment. Visited by relatives today- reminded pt re: visitation policy that only 2 visitors allowed in the room and no one under the age of 16 allowed in the room- pt acknowledged understanding re: visitation policy. To continue monitoring patient.
[2020-11-25 15:31] VITALS: BP 129/68
--- NOTE | 2020-11-25 15:34 | NUR ---
ON-GOING ASSESSMENT: CM REVIEWED CHART AND SPOKE W ATTENDING. PT POSSIBLE DISCHARGE TOMORROW AND COULD BENEFIT FROM . PT HAS NO PREFERENCE OF COMPANY. REFERRAL SENT TO [facility] WHO ACCEPTED. IF PT DISCHARGES THIS WEEKEND FAX D/C ORDERS/SUMMARY TO [facility]:[phone]. PT ALREADY HAS OXYGEN AT HOME.
[2020-11-25 16:20] VITALS: BP 125/57
[2020-11-25 20:24] VITALS: BP 131/62
--- NOTE | 2020-11-26 00:36 | NUR ---
PT AOX4, NOTABLY ANXIOUS. PT REPORTS ANXIETY/PREOCCUPATION WITH PHYSICAL LIMITS AND POSSIBLE DIAGNOSES. PROVIDED EMOTIONAL SUPPORT, THERAPEUTIC LISTENING, AND PRAYER WITH POSITIVE EFFECT. PT RECEIVING PRN PO XANAX Q8HR. PT DENIES PAIN. PT REPORTS SOB WITH EXERTION AND TALKING, REMAINS ON 2L O2 VIA NC. PT TOLERATING PO INTAKE OF FLUIDS AND REGULAR DIET WITHOUT ISSUE. PT WITHOUT NAUSEA OR EMESIS. PT CONTINUES WITH CONSTIPATION, BOWEL SOUNDS ASSESSED HYPOACTIVE, ABDOMEN SOFT, NONTENDER. PT AMBULATING WITH STANDBY TO MINIMUM ASSIST IN ROOM AND TO BATHROOM, GAIT STEADY. SENSATION INTACT THROUGHOUT, CAPILLARY REFILL LESS THAN 3SEC IN ALL EXTREMITIES. FREQUENT REPOSITIONING ENCOURAGED WHILE IN BED, PT NOTED TO SHIFT INDEPENDENTLY. PT ENCOURAGED TO NOTIFY STAFF FOR ALL NEEDS, CALL LIGHT WITHIN REACH, BED ALARM ON, BED LOCKED IN LOWEST POSITION, FREQUENT MONITORING WILL CONTINUE.
[2020-11-26 08:20] VITALS: BP 149/83
[2020-11-26] MEDS ORDERED: CEFDINIR300 MG PO (11:27)
[2020-11-26] MEDS ORDERED: ALPRAZOLAM 0.0.25 M1 PO (11:29)
[2020-11-26 12:08] LABS: HEMATOCRIT 37.6 % (37.0-47.0); HEMOGLOBIN 12.4 gm/dL (12.0-15.0); MCHC 33.1 g/dL (28.0-37.0); MCV 108.8 fL (80.0-100.0); RBC 3.45 mil/uL (4.20-5.00); RDW 18.8 % (10.5-14.5); WBC 10.9 thou/uL (4.0-11.0)
[2020-11-26 16:16] VITALS: BP 145/82
--- NOTE | 2020-11-26 17:29 | NUR ---
Assumed pt care this am , VS stable, maintianedon 2 lites of O2 via NC . diet and medications tolerated well. Family at the bed side, ambulated the halls with walker and gait belt. Mg citrate given, had a bm a few minutes ago. DC instructions and prescriptions given to the pt. IV removed. Pt is now dc.
== END 2020-11-26 17:33 | disposition home health service (06) | DRG 193 ==
LOC: ER 07:57 → EROBS 12:39 → 4S 12:39
PROVIDERS: Emergency Medicine; Nurse Practitioner; ADMIT Family Medicine; ATTEND Family Medicine
DX: J18.9 Pneumonia, unspecified organism (principal); J96.21 Acute and chronic respiratory failure with hypoxia; E88.01 Alpha-1-antitrypsin deficiency; Z20.822 Contact with and (suspected) exposure to COVID-19; R68.81 Early satiety; M81.0 Age-related osteoporosis without current pathological fracture; R53.81 Other malaise; D72.829 Elevated white blood cell count, unspecified; D75.1 Secondary polycythemia; D47.3 Essential (hemorrhagic) thrombocythemia; E83.119 Hemochromatosis, unspecified; E78.5 Hyperlipidemia, unspecified; D64.9 Anemia, unspecified; I10 Essential (primary) hypertension; K21.9 Gastro-esophageal reflux disease without esophagitis; Z86.73 Personal history of transient ischemic attack (TIA), and cerebral infarction without residual deficits; Z86.718 Personal history of other venous thrombosis and embolism
CPT/HCPCS: 10102

== ENCOUNTER → 2020-12-07 | Outpatient (CLI) | payer OTHER, BC ==
[~2020-12-07] MED LIST changes: +ALPRAZOLAM 0.0.25 M1 PO; +CEFDINIR300 MG PO; +METAMUCIL PACK3.4 GM PO
[2020-12-07 14:10] VITALS: BP 108/51
--- NOTE | 2020-12-07 14:40 | NUR ---
HERE FOR WEEKLY PROLASTIN C INFUSION. REPORTS DOING OK, IN GENERAL A BIT STRONGER THO STILL WEAK, LOW ENERGY, DYSPNEIC WITH EXERTION. NOTHING WORSE, NO NEW CONCERNS. SAW DR. SUAREZ YESTERDAY AND SEEING DR. NGUYEN SOON IN F/U FROM HOSPITALIZATION. TOLERATED INFUSION WITHOUT INCIDENT. USING 02 AT 2L. DISMISSED IN STABLE CONDITION WITH . WILL RETURN AGAIN IN ONE WEEK.
== END ==
LOC: OPONC 09:19
PROVIDERS: ATTEND Family Medicine
DX: E88.01 Alpha-1-antitrypsin deficiency (principal)
CPT/HCPCS: 95000

== ENCOUNTER → 2020-12-14 | Outpatient (CLI) | payer OTHER, BC ==
[2020-12-14 14:00] VITALS: BP 133/70
--- NOTE | 2020-12-14 15:00 | NUR ---
HERE FOR WEEKLY PROLASTIN C INFUSION. REPORTS DOING OK, NO NEW CONCERNS. USING O2 AT 2L AT ALL TIMES NOW. NO COUGH OR MUCOUS PRODUCTION. TOLERATED INFUSION WITHOUT INCIDENT. SCHEDULED TO RETURN IN ONE WEEK.
== END ==
LOC: OPONC 10:04
PROVIDERS: ATTEND Family Medicine
DX: E88.01 Alpha-1-antitrypsin deficiency (principal)
CPT/HCPCS: 95000

== ENCOUNTER → 2020-12-21 | Outpatient (CLI) | payer OTHER, BC ==
[2020-12-21 14:21] VITALS: BP 136/70
--- NOTE | 2020-12-21 16:48 | NUR ---
ARRIVED IN WHEELCHAIR FOR WEEKLY PROLASTIN INFUSION. STATES NO NEW CONCERNS. O2 ON AT 2LITERS NC. TOLERATED INFUSION WITHOUT ADVERSE REACTION THEN DC PER WC TO HOME. TO RETURN IN ONE WEEK FOR NEXT INFUSION.
== END ==
LOC: OPONC 10:27
DX: E88.01 Alpha-1-antitrypsin deficiency (principal)
CPT/HCPCS: 95000

== ENCOUNTER 2020-12-24 22:09 | Inpatient (IN) | payer OTHER, BC ==
[~2020-12-24] VITALS: Ht 157.5 cm; Wt 49.4 kg
[2020-12-24 22:18] VITALS: BP 143/71
[2020-12-24 22:42] LABS: ABSOLUTE NEUTROPHILS 12.6 thou/uL (1.4-8.2); BASOPHILS 0.1 % (0.0-2.0); EOSINOPHILS 0.2 % (0.0-3.0); HEMATOCRIT 41.9 % (37.0-47.0); HEMOGLOBIN 13.7 gm/dL (12.0-15.0); LYMPHOCYTES 1.4 % (24.0-44.0); MCH 36.6 pg (26.0-34.0); MCHC 32.7 g/dL (28.0-37.0); MCV 111.9 fL (80.0-100.0); MONOCYTES 2.3 % (1.0-8.0); PLATELET COUNT 419 thou/uL (150-400); RBC 3.74 mil/uL (4.20-5.00); RDW 19.2 % (10.5-14.5); WBC 13.1 thou/uL (4.0-11.0)
[2020-12-24 22:50] LABS: CALCIUM 8.7 mg/dL (8.5-10.1); CREATININE 1.2 mg/dL (0.6-1.0); POTASSIUM 3.7 mmol/L (3.5-5.1)
[2020-12-24 23:01] LABS: ALBUMIN 3.6 g/dL (3.4-5.0); DIRECT BILIRUBIN 0.2 mg/dL (<0.1-0.2); TOTAL BILIRUBIN 1.1 mg/dL (0.2-1.0); TOTAL PROTEIN 6.5 g/dL (6.4-8.2); TROPONIN-I 0.08 ng/mL (<0.06)
[2020-12-24 23:22] LABS: ANISOCYTOSIS 1+; MACROCYTES 3+
[2020-12-24 23:36] LABS: URINE BILIRUBIN NEGATIVE (Negative); URINE BLOOD 3+ (Negative); URINE CLARITY CLEAR; URINE COLOR YELLOW; URINE GLUCOSE-RANDOM* NEGATIVE (Negative); URINE KETONES NEGATIVE (Negative); URINE LEUKOCYTES-REFLEX TRACE (Negative); URINE NITRITE-REFLEX NEGATIVE (Negative); URINE PROTEIN (DIPSTICK) NEGATIVE (Negative); URINE UROBILINOGEN 0.2 E.U./dl (0.2-1.0)
[2020-12-24 23:45] LABS: BACTERIA-REFLEX None Seen /HPF (None Seen); CRYSTALS None Seen /LPF (None Seen); HYALINE CASTS 0-3 Few /LPF (None Seen); MUCUS 0-3 Light strn/LPF (None Seen); SQUAMOUS None Seen /LPF (0-3); TRANSITIONAL EPITHEL CELL 0-3 Few /LPF (None Seen); URINE WBC-REFLEX None Seen /HPF (0-5)
[2020-12-25 00:42] VITALS: BP 121/58
[2020-12-25 01:35] VITALS: BP 141/79
[2020-12-25 01:39] VITALS: BP 120/68
--- NOTE | 2020-12-25 07:58 | NUR ---
RECEIVED CARE OF THIS PATIENT AT 0130 FROM ED VIA CART ACCOMPAINIED ED PERSONEL. PATIENT ALERT AND ORIENTED X4. PATIENT NOT FALL RISK BUT ASKED PATIENT TO CALL FOR HELP UNTIL SHE CAN BE EVAULATED. DENIES PAIN BUT DID C/O NAUSEA THIS AM. SHIRLEY GIVEN. SLEPT OFF AND ON DURING NIGHT.
[2020-12-25 08:01] VITALS: BP 144/68
--- NOTE | 2020-12-25 15:29 | EKG ---
[address] [place] [address] ELECTROCARDIOGRAM REPORT Name: DONALDO DORSEY Room #: 454-[facility] IN ..#: [id number] Admission: 12/25/20 Attend Phys: Ricardo Larry MD Discharge: Date of : 37 Report #: [id number] [facility] Test Date: 2020-12-25 Test Time: 10:46:45 Pat Name: DONALDO DORSEY Department: Room: [facility] Gender: F Janitor Cleaner: LYDIA : 1935 Requested By: Clifford Carmona Order Number: [id number] MD: Tray Cisneros Measurements Intervals [place] Rate: 97 P: 26 IN: 188 QRS: -11 QRSD: 90 T: 30 QT: 344 QTc: 437 Interpretive Statements Sinus tachycardia Atrial premature complexes Consider anteroseptal infarct, age indeterminate Compared to ECG 11/23/2020 08:02:13 Atrial premature complex(es) now present Electronically Signed On 12-25-2020 15:28:59 CDT by Tray Cisneros [email or web address] <ELECTRONICALLY SIGNED> By: Tray Cisneros MD, [facility] 12/25/20 1528 [id number] Tray Cisneros MD, [facility] /EPI
--- NOTE | 2020-12-25 17:09 | NUR ---
Patient alert and orinted x4, up with sba with walker, on 2L nasal cannula and at home, denies pain, nausea medications given per mar, vital signs stable, and afbreile. family at bedside. Call light with in reach. will continue to monitor.
[2020-12-25 19:56] VITALS: BP 129/59
[2020-12-26 05:51] LABS: HEMATOCRIT 35.2 % (37.0-47.0); MCH 37.1 pg (26.0-34.0); MCHC 32.8 g/dL (28.0-37.0); MCV 112.9 fL (80.0-100.0); RBC 3.12 mil/uL (4.20-5.00); RDW 18.9 % (10.5-14.5)
[2020-12-26 05:52] LABS: HEMOGLOBIN 11.6 gm/dL (12.0-15.0)
[2020-12-26 05:58] LABS: CALCIUM 7.3 mg/dL (8.5-10.1); CREATININE 0.8 mg/dL (0.6-1.0); POTASSIUM 3.3 mmol/L (3.5-5.1)
[2020-12-26 07:37] VITALS: BP 118/58
--- NOTE | 2020-12-26 08:09 | NUR ---
PT AMBULATING TO BATHROOM WITH WALKER AND ASSIST X1 AND IS TOLERATING FAIR. DENIES PAIN. RESTING COMFORTABLY. NO NEEDS VOICED. CALL LIGHT WITHIN REACH. FREQUENT OBSERVATION.
--- NOTE | 2020-12-26 12:09 | NUR ---
PT ADMITTED RELATED TO N/V, DEHYDRATION, AL ANTITRYPSIN DEFICIENCY. CM REVIEWED CHART AND SPOKE WITH CARE TEAM. CM MET WITH PT AND DTR JENN AT BEDSIDE THIS DAY. PT APPEARED TO BE A&O X4. CM ROLE INTRODUCED. PT INDICATED SHE RESIDES IN A HOUSE WITH HER SPOUSE WITH 2 STEPS TO ENTER AND NO STEPS INSIDE. 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 PT INDICATED SHE WOULD BE RECEPTIVE TO HH IF NEEDED UPON DC. CM FOLLOWING TO ASSIST WITH DC PLANNING.
--- OUTSIDE RECORDS SUMMARY | 2020-12-26 12:13 | XMS REPORT | Summary of Care ---
Demographics + + + | Address | [address] | | | [place] [address] | + + + | Home Phone | | + + + | Preferred Language | Unknown | + + + | Marital Status | | + + + | Muslim Affiliation | Unknown | + + + | Race | White | + + + | Ethnic Group | Not or | + + + Author + + + | Author | [facility] | + + + | Organization | [facility] | + + + | Address | Unknown | + + + | Phone | Unavailable | + + + Support + + +---------+ + | Name | Relationship | Address | Phone | + + +---------+ + | Toñito Reyes | ECON | Unknown | | + + +---------+ + Care Team Providers + +------+ + | Care Nursing Informatics Analyst Name | Role | Phone | + +------+ + | Mark Lee MD | PCP | | + +------+ + Encounter Details +------+---------+ + + + | Date | Type | Department | Care Team | Description | +------+---------+ + + + | 05/2 | Letter | [facility] | Jesus, | | | 11/22 | (Out) | Family Medical | MD [address] | | | [address] | | [address] | [address], | | | | | [address] | [address] [place] | | | | | [address] [place] | [place] [address] | | | | | [place] [address] | [phone] | | | | | [phone] | [phone] | | | | | | (Fax) | | +------+---------+ + + + Allergies No Known Active Allergiesdocumented as of this encounter (statuses as of 12/26/2020) Medications + + +---------+--------+-----+-----+------+ | Medication | Sig | Dispens | Refill | Sta | End | Stat | | | | ed | s | rt | | us | | | | | | Freddie | Freddie | | | | | | | e | e | | + + +---------+--------+-----+-----+------+ | | Infuse 3,534 mg | | 0 | 02/ | | Acti | | alpha1-proteinas | once a week | | | 06/ | | ve | | e inhibitor | | | | 201 | | | | (PROLASTIN-C) | | | | 8 | | | | injection | | | | | | | + + +---------+--------+-----+-----+------+ | CALCIUM PO | Take 600 mg by | | 0 | | | Acti | | | mouth. | | | | | ve | + + +---------+--------+-----+-----+------+ | oxygen GAS | 2 L/min into | | 0 | 03/ | | Acti | | | each nostril. | | | 16/ | | ve | | | | | | 201 | | | | | | | | 7 | | | + + +---------+--------+-----+-----+------+ | hydroxyurea | Mon, Nerissa, Alcon, | | 0 | 08/ | | Acti | | (HYDREA) 500 MG | Sat, Sun | | | 03/ | | ve | | capsule | | | | 201 | | | | | | | | 8 | | | + + +---------+--------+-----+-----+------+ | Vitamin D, | Take 1 capsule | 5 | 0 | 04/ | | Acti | | Ergocalciferol, | (50,000 Units | capsule | | 12/ | | ve | | (VITAMIN D) | total) by mouth | | | 201 | | | | 28586 units | once a week. | | | 9 | | | + + +---------+--------+-----+-----+------+ +---+ + | | Additional | | | InformationPatie | | | nt taking | | | differently: | | | 50,000 Units | | | Oral Every 2 | | | weeks, Reported | | | on 02/10/2019 | +---+ + + + +---------+---+-----+---+------+ | methimazole | Take 5 mg by | | 0 | | | Acti | | (TAPAZOLE) 5 MG | mouth Sat, Sat, | | | | | ve | | tablet | Fri, Sun | | | | | | + + +---------+---+-----+---+------+ | docusate | Take 100 mg by | | 0 | | | Acti | | sodium (COLACE) | mouth 2 (two) | | | | | ve | | 100 MG capsule | times a day | | | | | | + + +---------+---+-----+---+------+ | benzonatate | Take 1-2 tablets | 60 | 0 | 11/ | | Acti | | (TESSALON) 100 | by mouth every | capsule | | 14/ | | ve | | MG capsule | 8 hours as | | | 201 | | | | | needed for cough | | | 9 | | | + + +---------+---+-----+---+------+ | guaiFENesin | Take 1,200 mg by | | 0 | | | Acti | | (MUCINEX) 600 MG | mouth 2 (two) | | | | | ve | | 12 hr tablet | times a day | | | | | | + + +---------+---+-----+---+------+ | psyllium | Take 1 packet by | | 0 | | | Acti | | (METAMUCIL | mouth daily | | | | | ve | | SMOOTH TEXTURE) | | | | | | | | 28 % packet | | | | | | | + + +---------+---+-----+---+------+ | albuterol | Inhale 2 puffs | | 0 | | | Acti | | (PROVENTIL | every 6 (six) | | | | | ve | | HFA;VENTOLIN | hours as needed | | | | | | | HFA;PROAIR HFA) | for wheezing | | | | | | | 108 (90 Base) | | | | | | | | MCG/ACT inhaler | | | | | | | + + +---------+---+-----+---+------+ | atorvastatin | Take 1 tablet by | 90 | 3 | 05/ | | Acti | | (LIPITOR) 80 MG | mouth once | tablet | | 29/ | | ve | | tablet | daily | | | 202 | | | | | | | | 0 | | | + + +---------+---+-----+---+------+ | torsemide | Take 1 tablet by | 90 | 3 | 06/ | | Acti | | (DEMADEX) 20 MG | mouth once | tablet | | 17/ | | ve | | tablet | daily | | | 202 | | | | | | | | 0 | | | + + +---------+---+-----+---+------+ +---+ + | | Additional | | | InformationPatie | | | nt taking | | | differently: 10 | | | mg, Reported on | | | 06/20/2020 | +---+ + + + +--------+---+-----+---+------+ | ELIQUIS 2.5 MG | Take 1 tablet by | 180 | 2 | 09/ | | Acti | | tablet | mouth twice | tablet | | 02/ | | ve | | | daily | | | 202 | | | | | | | | 0 | | | + + +--------+---+-----+---+------+ +---+ + | | Additional | | | InformationPatie | | | nt taking | | | differently: 2 | | | times daily, | | | Reported on | | | 06/20/2020 | +---+ + + + +---------+---+-----+-----+------+ | metoprolol | Take 1 tablet by | 180 | 2 | 09/ | | Acti | | tartrate | mouth twice | tablet | | 25/ | | ve | | (LOPRESSOR) 25 | daily | | | 202 | | | | MG tablet | | | | 0 | | | + + +---------+---+-----+-----+------+ | predniSONE | Take 1 tablet | 30 | 0 | 10/ | 10/ | Acti | | (DELTASONE) 10 | (10 mg total) by | tablet | | 22/ | 22/ | ve | | MG tablet | mouth daily | | | 202 | 202 | | | | 40mg qdx3d,30mg | | | 0 | 1 | | | | qdx3d,20mg | | | | | | | | qdx3d, 10mg | | | | | | | | qdx3d | | | | | | + + +---------+---+-----+-----+------+ | denosumab | Inject 60 mg | | 0 | | | Acti | | (Prolia) 60 | under the skin | | | | | ve | | MG/ML injection | once Every 6 | | | | | | | | months | | | | | | + + +---------+---+-----+-----+------+ | predniSONE | Take 1 tablet by | 90 | 0 | 02/ | | Acti | | (DELTASONE) 10 | mouth once | tablet | | 19/ | | ve | | MG tablet | daily | | | 202 | | | | | | | | 1 | | | + + +---------+---+-----+-----+------+ | omeprazole | Take 1 capsule | 90 | 0 | 04/ | | Acti | | (PriLOSEC) 40 MG | by mouth once | capsule | | 08/ | | ve | | capsule | daily | | | 202 | | | | | | | | 1 | | | + + +---------+---+-----+-----+------+ | Dilt-XR 180 MG | Take 1 capsule | 90 | 2 | 04/ | | Acti | | 24 hr capsule | by mouth once | capsule | | 08/ | | ve | | | daily | | | 202 | | | | | | | | 1 | | | + + +---------+---+-----+-----+------+ | vitamin D2, | Take 1 capsule | 12 | 0 | 05/ | | Acti | | Ergocalciferol, | by mouth once a | capsule | | 03/ | | ve | | 1.25 MG (02500 | week | | | 202 | | | | UT) | | | | 1 | | | + + +---------+---+-----+-----+------+ documented as of this encounter (statuses as of 12/26/2020) Active Problems + + + | Problem | Noted Date | + + + | Pulmonary HTN | 11/10/2019 | + + + | Multiple thyroid nodules | 06/05/2019 | + + + | Pain of left lower extremity | 12/02/2018 | + + + | Abdominal aortic aneurysm (AAA) without rupture | 11/11/2018 | + + + | Atrial fibrillation | 10/14/2018 | + + + | Edema | 10/14/2018 | + + + | High coronary artery calcium score | 10/14/2018 | + + + | Carotid artery plaque, bilateral | 10/14/2018 | + + + | BMI less than 19,adult | 09/08/2018 | + + + | Dgike-8-ncstbditfuquvfif deficiency | 08/07/2018 | + + + | Age-related osteoporosis with current pathological | 05/09/2018 | | fracture | | + + + | Essential hypertension | 05/09/2018 | + + + | Mixed hyperlipidemia | 05/09/2018 | + + + + + | Overview: Overview: FLP 08/09/15: Total cholesterol | | 159; LDL 63; HDL 84; trigs 59Last Assessment & Plan: | | As of the patient's admission on 09/11/2015, her prior | | to admission treatment included Lipitor.Plan: | | Continue home regimen. | | | |Plan: Continue home regimen. 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/09/ | | | | 2017 | 019 | + +--------+---------+ documented as of this encounter (statuses as of 12/26/2020) Immunizations + + + + | Name | Administration Dates | Next Due | + + + + | Influenza (IM) | 05/03/2014, 05/01/2013, 04/17/2010 | | | Preservative | | | | Free | | | + + + + | Influenza, | 05/05/2019 | | | Unspecified | | | + + + + | Influenza,Inject | 05/07/2018, 05/04/2017, 05/07/2016 | | | americo howellen | | | | t,PF | | | + + + + | Pneumococcal | 06/03/2014 | | | Conjugate | | | | 13-Valent(Prevna | | | | r) | | | + + + + | Pneumococcal | 05/07/2018, 06/01/2013 | | | Polysaccharide-2 | | | | 3(Pneumovax) | | | + + + + | Tdap | 06/04/2017 | | + + + + documented as of this encounter Social History + +-------+---------+--------+------+ | Tobacco Use | Types | Packs/D | Years | Date | | | | ay | Used | | + +-------+---------+--------+------+ | Never Smoker | | | | | + +-------+---------+--------+------+ + +---+---+---+ | Smokeless | | | | | Tobacco: Never | | | | | Used | | | | + +---+---+---+ + + +---------+ + | Alcohol Use | Drinks/Week | oz/Week | Comments | + + +---------+ + | No | | | | + + +---------+ + + + + | Sex Assigned at | Date Recorded | | | | + + + | Not on file | | + + + documented as of this encounter Last Filed Vital Signs Not on filedocumented in this encounter Plan of Treatment +------+---------+ + + + | Date | Type | Specialty | Care Team | Description | +------+---------+ + + + | 12/04 | Office | Pulmonology | Jose C Blackman, | | | 02/21 | Visit | | [address] | | [address], | | | | | | [address] | | | | | | [place], [place] | | | | | | [address] | | | | | | [phone] | | | | | | [phone] | | | | | | (Fax) | | +------+---------+ + + + | 06/2 | Office | Cardiology | Kristine, | | | 20 | Visit | | MD [address] | | | [address] | | | [address] | | | | | | [address] | | | | | | [place], [place] | | | | | | [address] | | | | | | [phone] | | | | | | [phone] | | | | | | (Fax) | | +------+---------+ + + + | 10/0 | Office | Family Medicine | Lee, | | | 02/21 | Visit | | MD [address] | | | [address] | | | [address] | | | | | | [address] [place] | | | | | | [place] [address] | | | | | | [phone] | | | | | | [phone] | | | | | | (Fax) | | +------+---------+ + + + + +---------+--------+ + | Health | Due | Last | Comments | | Maintenance | Date | Done | | + +---------+--------+ + | COVID-19 VACCINE | | | | | | 955 | | | + +---------+--------+ + | INFLUENZA | | 05/05/ | | | VACCINE | 021 | 2020, | | | | | 05/05/ | | | | | 2018, | | | | | 05/05/ | | | | | 2019, | | | | | Additi | | | | | onal | | | | | histor | | | | | y | | | | | exists | | + +---------+--------+ + | (Prevnar) | Complet | 04/26/ | | | Pneumococcal | ed | 2014, | | | Conjugate | | 06/03/ | | | Vaccine Age 65 | | 2013 | | | and over | | | | + +---------+--------+ + | (Pneumovax) | Complet | 05/07/ | | | Pneumococcal | ed | 2017, | | | Polysaccharide | | 06/01/ | | | Vaccine Age 65 | | 2012 | | | and Over | | | | + +---------+--------+ + documented as of this encounter Results Not on filedocumented in this encounter Insurance + +------+ +------+-------+---------+------+ | Payer | Bene | Subscrib | Effe | Phone | Address | Type | | | fit | er ID | ctiv | | | | | | Plan | | e | | | | | | / | | Date | | | | | | Grou | | s | | | | | | p | | | | | | + +------+ +------+-------+---------+------+ | MEDICARE | MEDI | [id number] | 12/03/ | | [place] | | | | CARE | [id number] | 1999 | | | | | | | | -Pre | | | | | | PART | | sent | | | | | | A | | | | | | | | AND | | | | | | | | B | | | | | | + +------+ +------+-------+---------+------+ | BCBS [place] | BCBS | [id number] | 08/05/ | | | | | | | [id number] | 2005 | | | | | | [place] | | -Pre | | | | | | | | sent | | | | | | CITY | | | | | | + +------+ +------+-------+---------+------+ documented as of this encounter"
--- NOTE | 2020-12-26 15:21 | 2DMMODE ---
[facility] [place] [address] 2 D/M-MODE ECHOCARDIOGRAM Name: DONALDO DORSEY Vero Room #: 454-P [facility] IN .R.#: [id number] Admission: 12/25/20 Attend Phys: Mark Lee MD Discharge: Date of : 37 Report #: [id number] THIS REPORT FOR: cc: Mark Lee MD, Neal A. MD KristineClifford garcia MD [facility] ~ APPROVED REPORT Study performed: 12/26/2020 13:08:30 EXAM: Comprehensive 2D, Doppler, and color-flow Echocardiogram Patient Location: Bedside Room #: 454 Status: routine BSA: 1.48 HR: 99 bpm BP: 129/59 mmHg Rhythm: PAF Other Information Study Quality: Good Indications Elevated troponin, valvular insufficiency. Hx: PAF, COPD. 2D Dimensions RVDd: 36.42 mm IVSd: 11.23 (7-11mm) LVOT Diam: 18.71 (18-24mm) LVDd: 45.03 mm PWd: 8.97 (7-11mm) LVDs: 29.98 (25-40mm) Left Atrium: 31.91 (27-40mm) Aortic Root: 30.70 mm Volumes Left Atrial Volume (Systole) Single Plane 4CH: 50.60 mL Single Plane 2CH: 56.50 mL LA ESV Index: 42.00 mL/m2 Aortic Valve AoV Peak Ruy.: 3.30 m/s AO Peak Gr.: 43.59 mmHg LVOT Max P.12 mmHg AO Mean Gr.: 26.20 mmHg [facility] [address] [place] [address] 2 D/M-MODE ECHOCARDIOGRAM Name: DONALDO DORSEY Room #: 454-P [facility]#: [id number] Admission: 12/25/20 Attend Phys: Mark Lee, Discharge: Date of : 37 Report #: [id number] AO V2 Mean: 2.46 m/s LVOT Max V: 1.13 m/s AO V2 VTI: 65.48 cm ELZBIETA Vmax: 0.94 cm2 Mitral Valve E/A Ratio: 0.7 MV Decel. Time: 126.66 ms MV E Max Ruy.: 0.98 m/s MV A Ruy.: 1.31 m/s MV PHT: 36.73 ms IVRT: 62.28 ms Pulmonary Valve PV Peak Ruy.: 1.33 m/s PV Peak Gr.: 7.10 mmHg Tricuspid Valve TR Peak Ruy.: 3.52 m/s RAP Estimate: 5.00 mmHg TR Peak Gr.: 50.00 mmHg PA Pressure: 55.00 mmHg Left Ventricle The left ventricle is normal size. There is normal LV segmental wall motion. Mild basal septal hypertrophy is present. Left ventricular systolic function is normal. LVEF is 60-65%. Mild diastolic dysfunction is present (impaired relaxation pattern). Right Ventricle The right ventricle is normal size. The right ventricular systolic function is normal. Atria Left atrium is moderately dilated. Right atrium is at the upper limits of normal. Aortic Valve Aortic valve is moderately calcified. Trace aortic regurgitation. There is moderate valvular aortic stenosis. Calculated aortic valve area is 0.9 cm2 with maximum pressure gradient of 44 mmHg and mean pressure gradient of 26 mmHg. Mitral Valve Mitral valve leaflets are mildly thickened. Moderate mitral annular calcification. Mild mitral regurgitation. Tricuspid Valve The tricuspid valve is normal in structure. Mild tricuspid [facility] [address] [place] [address] 2 D/M-MODE ECHOCARDIOGRAM Name: SUNITADONALDO L Room #: 454-P [facility] IN [facility].#: [id number] Admission: 12/25/20 Attend Phys: Mark Lee, Discharge: Date of : 37 Report #: [id number] regurgitation. Estimated PAP is 55mmHg. Pulmonic Valve The pulmonary valve is normal in structure. There is no pulmonic valvular regurgitation. Great Vessels The aortic root is normal in size. IVC is normal in size and collapses >50% with inspiration. Pericardium No effusion <Conclusion> The left ventricle is normal size. Mild basal septal hypertrophy is present. LVEF is 60-65%. Mild diastolic dysfunction is present (impaired relaxation pattern). The right ventricle is normal size. Left atrium is moderately dilated. Right atrium is at the upper limits of normal. Aortic valve is moderately calcified. Trace aortic regurgitation. There is moderate valvular aortic stenosis. Calculated aortic valve area is 0.9 cm2 with maximum pressure gradient of 44 mmHg and mean pressure gradient of 26 mmHg. Mitral valve leaflets are mildly thickened. Moderate mitral annular calcification. Mild mitral regurgitation. Mild tricuspid regurgitation. Estimated PAP is 55mmHg. The aortic root is normal in size. <ELECTRONICALLY SIGNED> By: Clifford Carmona MD, FACC 12/26/20 [phone] Clifford Carmona MD, FACC /INF
--- NOTE | 2020-12-26 19:02 | NUR ---
Patient alert and orinted x4, up ad josselyn in room, passed with PT in [place] without walker, on nasal canula 2L and at home, tolerating diet well, denies pain or nausea, vitals signs stable, and afbriele. Call light with in reach. Will continue to monitor.
[2020-12-26 19:53] VITALS: BP 127/57
[2020-12-27 07:50] VITALS: BP 129/74
--- NOTE | 2020-12-27 08:11 | NUR ---
Assumed pt care at 1900. A/OX4,VSS. Pt has dyspnea on exertion,encouraged to take deep breathes and breathe through the nose; oxygen on @ 2L/NC. Up with SBA/IV pole. Denies pain, N/V this shift. Has been NPO since midnight for EGD.
--- NOTE | 2020-12-27 11:51 | NUR ---
PT WENT FOR EGD THIS AM. PT CONTINUES ON 2L O2 WHICH SHE HAD BEEN ON [employer]. CM FOLLOWING REGARDING POSSIBLE DC NEEDS.
[2020-12-27 18:28] VITALS: BP 131/80
--- NOTE | 2020-12-27 20:07 | NUR ---
Patient alert and orinted x4, on 2L nasal canula and at home, up ad josselyn in room, tolerating diet and NPO at midnight, vitals stable, and afbriele. Call light with in reach. Will contine to monitor.
[2020-12-28 04:30] VITALS: BP 167/112
--- NOTE | 2020-12-28 05:32 | NUR ---
Assumed pt care at 1900. A/OX4, VSS. Pt very anxious about gastric emptying study/not pooping after meds,1:1, Xanax given and pt encouraged to get some sleep and worry about it in the morning. Prune juice given as well. Pt has been NPO since midnight for gastric emptying study. Will update the Dr this morning. Pt resting quietly in bed w/o any distress noted,will continue to monitor pt.
[2020-12-28 09:16] VITALS: BP 167/112
--- NOTE | 2020-12-28 12:29 | NUR ---
PT WAS OFF UNIT THIS AM FOR GASTRIC EMPTYING STUDY. PHYSICAIN INDICATED THAT THAT PT WILL LIKELY BE MEDICALLY STABLE TO DC HOME FOLLOWING PROCEDURE. PT IS TO DC HOME TO SELF CARE. PT'S FAMILY TO PROVIDE TRANPORT HOME THIS DAY. NO OTHER CM INTERVENTION INDICATED. CASE CLOSED.
--- NOTE | 2020-12-28 13:46 | NUR ---
ASSUMED CARE OF PATIENT AT SHIFT CHANGE. ASSESSMENT CHARTED. MEDICATIONS ADMINISTERED PER EMAR. PATIENT IS A&OX4 AND ABLE TO MAKE NEEDS KNOWN. LEFT UNIT FOR GASTRIC EMPTYING STUDY AND RETURNED THIS AFTERNOON. FINSINGS SHOW GASTROPARESIS; PATIENT INSTRUCTED TO F/U WITH GI UPON DISCHARGE. PATIENT TOOK MEDS WHEN RETURNED TO UNIT. DISCHARGE WAS GRANTED BY DOCTOR SUAREZ. EDUCATION AND DISCHARGE INSTRUCTIONS GIVEN. PATIENT VOICED NO FURTHER NEEDS. CONTINUED TO MONITOR UNTIL DISCHARGE
[2020-12-28 14:14] VITALS: BP 144/87
--- NOTE | 2020-12-30 17:07 | PATH ---
[facility] [place] [address] PATHOLOGY RPT PROCEDURE Name: LISA DORSEY Vero Room #: 454-P [facility] IN M.R.#: [id number] Admission: 12/25/20 Date of : 37 Discharge: 12/28/20 Report #: [id number] Path Case #: [id number] [facility] Accession Number: [id number] . 01 Material submitted: . PART A: duodenum - BIOPSY DUODENUM FOR CELIAC PART B: ANTRUM - BIOPSY ANTRUM FOR H PYLORI PART C: esophagus - BIOPSY DISTAL ESOPHAGUS FOR EOE. Modifiers: distal PART D: esophagus - BIOPSY MID ESOPHAGUS FOR EOE. Modifiers: mid . 01 Clinical history: . DYSPHAGIA EGD . 02 Diagnosis: A. Small bowel mucosa, duodenum for celiac, endoscopic biopsy: - Mild acute and chronic nonspecific inflammation showing features compatible with peptic duodenitis. - Negative for villous blunting or increase in intraepithelial lymphocytes. . B. Gastric mucosa, antrum, endoscopic biopsy: - Mild reactive gastropathy. - Negative for intestinal metaplasia or atrophy. - Negative for Helicobacter pylori (properly controlled immunohistochemical stain performed). . C. Gastroesophageal mucosa, distal esophagus for eosinophilic eosinophils, endoscopic biopsy: - Focal gastric-type mucosa with mild chronic inflammation. - Negative for intestinal metaplasia or dysplasia. - Squamous mucosa with mild esophagitis; negative for increase in intraepithelial eosinophils. . D. Squamous mucosa, mid esophagus for eosinophilic eosinophils, endoscopic biopsy: - Mild esophagitis; no increase in intraepithelial eosinophils. - Negative for dysplasia or malignancy. . (IUV:disk recoater; 12/30/2020) R 12/30/2020 1656 Local . 02 Electronically signed: . Shelbi Pelaez MD, Pathologist NPI- [id number] . 01 Gross description: . [address] [address] PATHOLOGY RPT PROCEDURE Name: LISA DORSEY Room #: 454-P [facility] IN [facility]#: [id number] Admission: 12/25/20 Date of : 37 Discharge: 12/28/20 Report #: [id number] Path Case #: [id number] A. The specimen is received in formalin, labeled "Lisa Dorsey", "biopsy duodenum for celiac". Received are multiple segments of pale jiménez soft tissue ranging in size from 0.1 cm to 0.2 cm. The specimen is entirely submitted in cassette A1. . B. The specimen is received in formalin, labeled "Lisa Dorsey", "biopsy antrum for H. pylori". Received are 2 segments of pale jiménez soft tissue measuring 0.2 and 0.4 cm. The specimen is entirely submitted in cassette B1. . C. The specimen is received in formalin, labeled "Lisa Dorsey", "biopsy distal esophagus for EOE". Received are 2 segments of pale white soft tissue measuring 0.1 and 0.3 cm. The specimen is entirely submitted in cassette C1. . D. The specimen is received in formalin, labeled "Lisa Dorsey", "biopsy mid esophagus for EOE". Received are 2 segments of pale white soft tissue measuring 0.1 and 0.3 cm. The specimen is entirely submitted in cassette D1.([facility]; 12/29/2020) CHRIS/BRIGITTE 12/29/2020 0827 Local . 02 Pathologist provided ICD-10: K29.80, K31.9, K29.50, K20.90 . 02 CPT . 871772, 745617, [id number], 608310, [id number] Specimen Comment: A courtesy copy of this report has been sent to [phone] Specimen Comment: 2007 Specimen Comment: Report sent to Performed at: 01 [facility] [address] [place] [address] [address], [place], [place] [id number] MD Carlos Young MD Phone: [phone] Performed at: [address] [id number] MD Shelbi Pelaez MD Phone: [phone]
--- NOTE | 2021-01-03 09:43 | HC ---
[facility] [place] [address] CONSULTATION Name: DONALDO DORSEY Room #: 454-P [facility] IN M.R.#: [id number] Admission: 12/25/20 Attend Phys: Mark Lee MD Discharge: 12/28/20 Date of : 37 Report #: [id number] THIS REPORT FOR: cc: Mark Lee MD, Neal A. MD Mancuso, Gerald M. MD [facility] ~ DOC #: [id number] Clifford Carmona MD HISTORY OF PRESENT ILLNESS: The patient is an 85-year-old female who I am asked to see for troponin elevation of 0.08. I do not perceive this to be significant for his cardiac status. She has a history of coronary artery disease only manifested by elevated coronary calcium score of 1400. She has a history of moderate valvular insufficiency and an underlying alpha-1 antitrypsin deficiency, pulmonary involvement only. She is followed by pulmonary and primary for this. She has had progressive weakness and sense of pneumonia in November a month ago. She has been home for a few weeks and still having persistent nausea, fatigue and has significant underlying anxiety. There has been no chest pain or anginal type symptoms. There has been no recent stress testing, but never has any been indicated. Nonspecific EKG changes. She has a history of paroxysmal AFib and she is anticoagulated. No syncope or presyncope. She lives at home with her , accompanied by daughter here today. CURRENT MEDICATIONS: Omnicef, Xanax, Pulmicort, hydroxyurea. She does need intermittent phlebotomy. Metamucil p.r.n., methimazole, atorvastatin 80, Eliquis 2.5 b.i.d., metoprolol tartrate 25 b.i.d., diltiazem 180, Prolastin-C as an alpha-1 proteinase inhibitor, prednisone 10 mg a day, ____ 10 mg a day and Prolia every 6 months. PAST MEDICAL HISTORY: Positive for alpha-1 antitrypsin deficiency, primary pulmonary involvement; DJD; kyphoplasty; vertebroplasty; osteoporosis; left arm DVT; paroxysmal AFib; history of COPD, BOOP. SOCIAL HISTORY: Lives at home with her . No current alcohol or tobacco use. FAMILY HISTORY: Negative for premature coronary artery disease. ALLERGIES: No known drug allergies. PHYSICAL EXAMINATION: GENERAL: She is in no distress. VITAL SIGNS: Blood pressure 140/68, pulse is 90s. HEENT: Eyes shows xanthelasmas. Pharynx is clear. NECK: Shows preserved upstrokes without JVD or bruits. LUNGS: Prolonged expiratory phase and diminished in the bases, otherwise clear [facility] [address] [place] [address] CONSULTATION Name: DONALDO DORSEY Room #: 454-P [facility] IN M.R.#: [id number] Admission: 12/25/20 Attend Phys: Mark Lee MD Discharge: 12/28/20 Date of : 37 Report #: [id number] anteriorly. CARDIAC: S1, S2, distant. ABDOMEN: Soft, no HSM or abdominal bruit. EXTREMITIES: Reveal no edema. Distal pulses diminished, but intact. NEUROLOGIC: Nonfocal. SKIN: Warm and dry without xanthoma or ulcer. MUSCULOSKELETAL: Generalized arthritic changes. ASSESSMENT: 1. Progressive nausea, dysphagia. 2. Shortness of breath status post pneumonia. 3. 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 4. Hemochromatosis with history of phlebotomy. 5. History of Zenker's diverticulum. 6. Moderate valvular insufficiency with mild pulmonary hypertension by echo. 7. Coronary artery disease manifested by elevated coronary calcium score, no prior intervention. 8. Osteoporosis, osteopenia. 9. History of deep vein thrombosis. RECOMMENDATIONS AND PLANS: I have seen the GI note. I do not perceive this troponin elevation of 0.08 is any significance here. I will repeat the EKG and the echo in the morning. I do not see a need for stress testing in this respect. Further workup involving this just generalized ____ some significant underlying anxiety issues here, tried to reassure, valvular status is not an issue acutely and no evidence of unstable anginal type symptoms here. We will follow with you. I do not recommend any further troponins to be checked. We will check EKG and echo in the morning. Thank you for allowing me to assist in the care of this patient. MD NITIN Morgan/MALLORY/ERICH <ELECTRONICALLY SIGNED> By: Clifford Carmona MD, [facility] 01/03/21 0943 0941 [id number] Clifford Carmona MD, FAC /nt
[2021-01-04] MEDS ORDERED: REGLAN 5 MG TAB5 MG PO (13:09)
== END 2020-12-28 14:15 | disposition home or self-care (01) | DRG 189 ==
LOC: ER 22:09 → 4W 12-25 00:34 → EROBS 12-25 00:34 → 4W 12-25 01:24
PROVIDERS: Emergency Medicine; Nurse Practitioner Family; ADMIT Family Medicine; ATTEND Family Medicine
PROC: 0DB68ZX Excision of Stomach, Via Natural or Artificial Opening Endoscopic, Diagnostic (ICD-10-PCS; principal; 2020-12-27)
PROC: 0DB98ZX Excision of Duodenum, Via Natural or Artificial Opening Endoscopic, Diagnostic (ICD-10-PCS; principal; 2020-12-27)
PROC: 0DB38ZX Excision of Lower Esophagus, Via Natural or Artificial Opening Endoscopic, Diagnostic (ICD-10-PCS; principal; 2020-12-27)
PROC: 0DB28ZX Excision of Middle Esophagus, Via Natural or Artificial Opening Endoscopic, Diagnostic (ICD-10-PCS; principal; 2020-12-27)
PROC: 0D758ZZ Dilation of Esophagus, Via Natural or Artificial Opening Endoscopic (ICD-10-PCS; principal; 2020-12-27)
DX: J96.21 Acute and chronic respiratory failure with hypoxia (principal); K25.4 Chronic or unspecified gastric ulcer with hemorrhage; K29.71 Gastritis, unspecified, with bleeding; I48.21 Permanent atrial fibrillation; I38 Endocarditis, valve unspecified; E88.01 Alpha-1-antitrypsin deficiency; E86.0 Dehydration; I25.10 Atherosclerotic heart disease of native coronary artery without angina pectoris; F41.9 Anxiety disorder, unspecified; J44.9 Chronic obstructive pulmonary disease, unspecified; E83.119 Hemochromatosis, unspecified; I27.20 Pulmonary hypertension, unspecified; M85.80 Other specified disorders of bone density and structure, unspecified site; E03.9 Hypothyroidism, unspecified; D75.1 Secondary polycythemia; D47.3 Essential (hemorrhagic) thrombocythemia; K44.9 Diaphragmatic hernia without obstruction or gangrene; M81.0 Age-related osteoporosis without current pathological fracture; K22.2 Esophageal obstruction; K31.7 Polyp of stomach and duodenum; J84.10 Pulmonary fibrosis, unspecified; Z20.822 Contact with and (suspected) exposure to COVID-19; Z86.718 Personal history of other venous thrombosis and embolism; Z86.73 Personal history of transient ischemic attack (TIA), and cerebral infarction without residual deficits; Z79.01 Long term (current) use of anticoagulants; Z79.899 Other long term (current) drug therapy; Z98.891 History of uterine scar from previous surgery
CPT/HCPCS: 10040; 62110; 62900; 70005

== ENCOUNTER → 2020-12-30 | Outpatient (CLI) | payer OTHER, BC ==
[2020-12-30 13:10] VITALS: BP 143/83
--- NOTE | 2020-12-30 13:40 | NUR ---
Here for her weekly Prolastin C infusion. Just dismissed from the hospital on Saturday. States she did not yet have a BM prior to dismissal so took some more laxatives once home and had profuse diarrhea followed by some pellet like stools. Knows the results of her gastric emptying study but does not know yet how to manage the gastroparesis. Has a f/u appt with Dr. Lee on Saturday of next week and will address this with him. Encouraged pt to also talk with him about how dry she needs to keep herself with her Torsemide (ordered by Dr. Carmona). Lung-lacey, pt doing ok, at baseline. Using O2 at 2l. States able to eat small amounts at a time. Does have some post hospital/post IV fluids fluid on board with bilat LE edema noted. Left forearm/elbow area with some edema post an IV infiltration there during her inpatient stay. Arm is soft with no redness, warmth or pain. Pt tolerated infusion without incident. Dismissed in stable condition. Scheduled to return again next week on
== END ==
LOC: OPONC 12-28 11:33
PROVIDERS: ATTEND Family Medicine
DX: E88.01 Alpha-1-antitrypsin deficiency (principal)
CPT/HCPCS: 95000

== ENCOUNTER → 2021-01-04 | Outpatient (CLI) | payer OTHER, BC ==
[~2021-01-04] MED LIST changes: +REGLAN 5 MG TAB5 MG PO
[2021-01-04 13:18] VITALS: BP 124/70
--- NOTE | 2021-01-04 13:45 | NUR ---
HERE FOR WEEKLY PROLASTIN C INFUSION. REPORTS DOING BETTER EACH DAY POST DISMISSAL FROM HOSPITAL. STILL HAS SOME EXTRA FLUID WITH BILAT LE EDEMA BUT STATES THIS IS RESOLVING. SAW DR. SUAREZ YESTERDAY WHO SHE SAID ENCOURAGED HER TO STAY ON HER TORSEMIDE DAILY. STARTS ON METOCLORPAMIDE SOON SHE PICKS THIS UP FROM THE PHARMACY. STATES SHE IS TO TAKE IT BEFORE HER BIG MEAL OF THE DAY. STATES HER BOWELS ARE MOVING. BREATHING IS AT BASELINE. NO NEW ISSUES NOTED. TOLERATED INFUSION TODAY WITHOUT INCIDENT. DISMISSED IN STABLE CONDITION. SCHEDULED TO RETURN AGAIN NEXT WEEK.
== END ==
LOC: OPONC 10:28
PROVIDERS: ATTEND Family Medicine
DX: E88.01 Alpha-1-antitrypsin deficiency (principal)
CPT/HCPCS: 95000

== ENCOUNTER → 2021-01-11 | Outpatient (CLI) | payer OTHER, BC ==
[2021-01-11 14:25] VITALS: BP 130/61
--- NOTE | 2021-01-11 15:06 | NUR ---
HERE FOR WEEKLY PROLASTIN C INFUSION. REPORTS DOING WELL. NO NEW CONCERNS. USES O2 AT 2L MOST OF THE TIME. STILL DYSPNEIC WITH EXERTION. LUNGS CLEAR. TOLERATED INFUSION WITHOUT INCIDENT. DISMISSED IN STABLE CONDITION. SCHEDULED TO RETURN AGAIN IN ONE WEEK.
== END ==
LOC: OPONC 12:23
DX: E88.01 Alpha-1-antitrypsin deficiency (principal)
CPT/HCPCS: 95000

== ENCOUNTER → 2021-01-18 | Outpatient (CLI) | payer OTHER, BC ==
[2021-01-18 14:14] VITALS: BP 128/67
--- NOTE | 2021-01-18 14:45 | NUR ---
HERE FOR WEEKLY PROLASTIN C INFUSION. REPORTS DOING OK, THE SAME, NO NEW CONCERNS. BREATHING AT BASELINE NOTING EXERTIONAL DYSPNEA. USES 02 AT 2L MOST OF TIME. TOLERATED INFUSION WITHOUT INCIDENT. DISMISSED IN STABLE CONDITION. SCHEDULED TO RETURN AGAIN IN ONE WEEK.
== END ==
LOC: OPONC 13:49
DX: E88.01 Alpha-1-antitrypsin deficiency (principal)
CPT/HCPCS: 95000

== ENCOUNTER → 2021-01-23 | Outpatient (CLI) | payer OTHER, BC | LOC: SJCVC 13:24 | PROVIDERS: ATTEND Internal Medicine Cardiovascular Disease | DX: R94.31 Abnormal electrocardiogram [ECG] [EKG] (principal); I48.0 Paroxysmal atrial fibrillation; R93.1 Abnormal findings on diagnostic imaging of heart and coronary circulation; I10 Essential (primary) hypertension; E78.2 Mixed hyperlipidemia; I27.20 Pulmonary hypertension, unspecified; E88.01 Alpha-1-antitrypsin deficiency; I35.0 Nonrheumatic aortic (valve) stenosis; J44.9 Chronic obstructive pulmonary disease, unspecified; E78.5 Hyperlipidemia, unspecified; M81.0 Age-related osteoporosis without current pathological fracture; Z79.899 Other long term (current) drug therapy ==

== ENCOUNTER → 2021-01-25 | Outpatient (CLI) | payer OTHER, BC ==
[2021-01-25 14:10] VITALS: BP 120/70
--- NOTE | 2021-01-25 14:36 | NUR ---
HERE FOR WEEKLY PROLASTIN C INFUSION. REPORTS DOING WELL, NO NEW CONCERNS. USES 02 AT 2L MOST OF THE TIME NOW. TOLERATED INFUSION WITHOUT INCIDENT. DISMISSED IN STABLE CONDITION. SCHEDULED TO RETURN AGAIN NEXT WEEK.
== END ==
LOC: OPONC 11:56
DX: E88.01 Alpha-1-antitrypsin deficiency (principal)
CPT/HCPCS: 95000

== ENCOUNTER → 2021-02-01 | Outpatient (CLI) | payer OTHER, BC ==
[2021-02-01 14:11] VITALS: BP 121/77
--- NOTE | 2021-02-01 17:27 | NUR ---
IN FOR WEEKLY PROLASTIN C INFUSION. NO NEW CONCERNS. TOLERATED INFUSION WITHOUT INCIDENT. DISMISSED IN STABLE CONDITION. WILL RETURN AGAIN NEXT WEEK.
== END ==
LOC: OPONC 14:59
DX: E88.01 Alpha-1-antitrypsin deficiency (principal)
CPT/HCPCS: 95000

== ENCOUNTER → 2021-02-08 | Outpatient (CLI) | payer OTHER, BC ==
[2021-02-08 13:40] VITALS: BP 111/40
--- NOTE | 2021-02-08 14:20 | NUR ---
HERE FOR WEEKLY PROLASTIN C INFUSION. REPORTS DOING WELL, FEELING WELL. NO CONCERNS NOTED. USES O2 AT 2L MOST OF THE TIME. TOLERATED INFUSION WITHOUT INCIDENT. DISMISSED IN STABLE CONDITION. SCHEDULED TO RETURN AGAIN IN ONE WEEK.
== END ==
LOC: OPONC 14:54
DX: E88.01 Alpha-1-antitrypsin deficiency (principal)
CPT/HCPCS: 95000

== ENCOUNTER → 2021-02-15 | Outpatient (CLI) | payer OTHER, BC ==
[2021-02-15 13:15] VITALS: BP 118/64
--- NOTE | 2021-02-15 14:24 | NUR ---
HERE FOR WEEKLY PROLASTIN C INFUSION. REPORTS DOING WELL, NO CONCERN NOTED. USES 02 AT 2L MOST OF THE TIME. TOLERATED INFUSION WITHOUT INCIDENT. DISMISSED IN STABLE CONDITION. SCHEDULED TO RETURN AGAIN IN ONE WEEK.
== END ==
LOC: OPONC 09:33
DX: E88.01 Alpha-1-antitrypsin deficiency (principal)
CPT/HCPCS: 95000

== ENCOUNTER → 2021-02-22 | Outpatient (CLI) | payer OTHER, BC ==
[2021-02-22 14:20] VITALS: BP 131/61
--- NOTE | 2021-02-22 16:40 | NUR ---
ARRIVED FOR WEEKLY INFUSION OF PROLASTIN C. VOICES NO NEW COMPLAINTS. O2 AT 2LITERS PER NC. TOLERATED INFUSION WITHOUT ADVERSE REACTION. DC PER WC IN STABLE CONDITION. WILL RETURN IN ONE WEEK.
== END ==
LOC: OPONC 12:00
DX: E88.01 Alpha-1-antitrypsin deficiency (principal)
CPT/HCPCS: 95000

== ENCOUNTER → 2021-03-01 | Outpatient (CLI) | payer OTHER, BC ==
[2021-03-01 13:00] VITALS: BP 123/81
--- NOTE | 2021-03-01 13:34 | NUR ---
HERE FOR WEEKLY PROLASTIN C INFUSION. REPORTS DOING WELL, NO CONCERNS NOTED. BREATHING AT BASELINE, USES 02 AT 2L. NO CONGESTION, COUGH OR RECENT ILLNESS. TOLERATED INFUSION WITHOUT INCIDENT. DISMISSED IN STABLE CONDITION. SCHEDULED TO RETURN AGAIN IN 1 WEEK.
== END ==
LOC: OPONC 12:00
DX: E88.01 Alpha-1-antitrypsin deficiency (principal)
CPT/HCPCS: 95000

== ENCOUNTER → 2021-03-08 | Outpatient (CLI) | payer OTHER, BC ==
[2021-03-08 14:25] VITALS: BP 135/48
--- NOTE | 2021-03-08 15:00 | NUR ---
HERE FOR WEEKLY PROLASTIN C INFUSION. REPORTS DOING WELL. LUNGS STAYING CLEAR. USES 02 AT 2L. TOLERATED INFUSION WITHOUT INCIDENT. DISMISSED IN STABLE CONDITION. SCHEDULED TO RETURN AGAIN NEXT WEEK.
== END ==
LOC: OPONC 15:08
DX: E88.01 Alpha-1-antitrypsin deficiency (principal)
CPT/HCPCS: 95000

== ENCOUNTER → 2021-03-15 | Outpatient (CLI) | payer OTHER, BC ==
[2021-03-15 14:20] VITALS: BP 117/59
--- NOTE | 2021-03-15 14:34 | NUR ---
HERE FOR WEEKLY PROLASTIN C INFUSION. REPORTS DOING WELL, NO NEW CONCERNS. USING 02 AT 2L. TOLERATED INFUSION WITHOUT INCIDENT. SCHEDULED TO RETURN AGAIN IN ONE WEEK.
== END ==
LOC: OPONC 09:01
DX: E88.01 Alpha-1-antitrypsin deficiency (principal)
CPT/HCPCS: 95000

== ENCOUNTER → 2021-03-22 | Outpatient (CLI) | payer OTHER, BC ==
[2021-03-22 14:15] VITALS: BP 137/63
--- NOTE | 2021-03-22 14:50 | NUR ---
HERE FOR WEEKLY PROLASTIN C INFUSION. REPORTS DOING WELL, NO NEW CONCERNS FROM LUNG STANDPOINT. STILL USES O2 AT 2L. SHE WAS UNABLE TO REACH DR. SUAREZ'S TEAM VIA PHONE CALLS FOR CONCERN LAST WEEK WITH NUMBNESS BILAT HANDS/FEET SO WENT IN TO SEE THE INTERPERSONAL COMMUNICATIONS PROFESSOR ON SATURDAY MORNING LAST WEEK WHO TOOK HER OFF OF THE OXYBUTININ AND REGLAN SHE HAD STARTED RELATIVELY RECENTLY. PT STILL HAS THE NEUROPATHY ISSUES BUT STATES NO WORSE AND PERHAPS A LITTLE BIT BETTER. NO OTHER CONCERNS NOTED. TOLERATED HER INFUSION WITHOUT INCIDENT. DISMISSED IN STABLE CONDITION. WILL RETURN AGAIN IN ONE WEEK.
== END ==
LOC: OPONC 09:22
DX: E88.01 Alpha-1-antitrypsin deficiency (principal)
CPT/HCPCS: 95000

== ENCOUNTER → 2021-03-29 | Outpatient (CLI) | payer OTHER, BC ==
[2021-03-29 13:10] VITALS: BP 126/57
--- NOTE | 2021-03-29 14:39 | NUR ---
PT HERE FOR WEEKLY PROLASTIN C INFUSION. REPORTS DOING WELL WITH NO NEW SYMPTOMS TO REPORT. REMAINS ON 2L O2 AT HOME. STATES SHE IS STILL HAVING NEUROPATHY SINCE STARTING ON NEW MEDS, BUT DOCTOR DOES NOT SEEM CONCERNED. PT TOLERATED INFUSION WITH NO COMPLICATIONS. LEFT UNIT IN STABLE CONDITION VIA WHEELCHAIR. TO RETURN NEXT WEEK AND IS SCHEDULED THROUGH THE END OF .
== END ==
LOC: EDSTATUS 09:09 → OPONC 12:00
DX: E88.01 Alpha-1-antitrypsin deficiency (principal)
CPT/HCPCS: 95000

== ENCOUNTER → 2021-04-05 | Outpatient (CLI) | payer OTHER, BC ==
[2021-04-05 14:15] VITALS: BP 102/53
--- NOTE | 2021-04-05 15:07 | NUR ---
PT HERE FOR WEEKLY PROLASTIN C INFUSION. DENIES ANY PAIN. LUNGS CTA. PT REPORTS A NEW BLISTER ON THE BOTTOM OF L FOOT. STATES SHE STOPPED BY DR. SUAREZ'S OFFICE THIS AM TO HAVE IT LOOKED AT. THEY RECOMMENDED SHE SEE THE WOUND CARE TEAM AND PUT IN A CONSULT FOR HER. RN TOOK PT BY THE WOUND CARE CLINIC ON THE WAY OUT SO SHE KNOWS WHERE IT IS. PT TOLERATED INFUSION WITH NO COMPLICATIONS. LEFT IN STABLE CONDITION VIA WHEELCHAIR. TO RETURN NEXT SAT.
== END ==
LOC: OPONC 12:07
DX: E88.01 Alpha-1-antitrypsin deficiency (principal)
CPT/HCPCS: 95000

== ENCOUNTER → 2021-04-12 | Outpatient (CLI) | payer OTHER, BC ==
[2021-04-12 14:35] VITALS: BP 118/50
--- NOTE | 2021-04-12 15:03 | NUR ---
HERE FOR WEEKLY PROLASTIN INFUSION. TOLERATED INFUSION WITHOUT ADVERSE REACTION. NOTED LEFT BALL OF FOOT, SKIN RED BUT INTACT. PATIENT STATES IT FEELS BETTER BUT NOT NORMAL. RATES PAIN AT A 5. PATIENT INJURED HER FOOT BY WALKING ON TREADMILL WITHOUT SHOES ON. DC IN STABLE CONDITION TO HOME. TO RETURN IN ONE WEEK FOR NEXT INFUSION.
== END ==
LOC: OPONC 13:14
DX: E88.01 Alpha-1-antitrypsin deficiency (principal)
CPT/HCPCS: 95000

== ENCOUNTER 2021-04-19 23:33 | Observation (INO) | payer OTHER, BC ==
[~2021-04-19] VITALS: Ht 157.5 cm; Wt 52.3 kg
[~2021-04-19 23:33] MED LIST changes: -CLOPIDOGREL75 MG PO; -ELIQUIS2.5 MG PO
[2021-04-19 23:36] VITALS: BP 172/84
[2021-04-20 01:07] LABS: HEMATOCRIT 37.4 % (37.0-47.0); HEMOGLOBIN 12.1 gm/dL (12.0-15.0); MCH 39.9 pg (26.0-34.0); MCHC 32.5 g/dL (28.0-37.0); MCV 122.7 fL (80.0-100.0); PLATELET COUNT 311 thou/uL (150-400); RBC 3.04 mil/uL (4.20-5.00); RDW 16.9 % (10.5-14.5); WBC 8.1 thou/uL (4.0-11.0)
[2021-04-20 01:13] LABS: CALCIUM 9.2 mg/dL (8.5-10.1); CREATININE 1.3 mg/dL (0.6-1.0); POTASSIUM 4.5 mmol/L (3.5-5.1)
[2021-04-20 01:15] LABS: APTT 29.3 Seconds (24.5-32.8); INR 1.02; PROTIME 11.1 Seconds (10.5-12.1)
[2021-04-20 01:31] LABS: ABSOLUTE NEUTROPHILS 6.4 thou/uL (1.4-8.2); METAMYELOCYTES 1 %
[2021-04-20 01:32] LABS: ANISOCYTOSIS 1+; MACROCYTES 3+; PLATELET ESTIMATE NORMAL; POIKILOCYTOSIS 1+; POLYCHROMASIA 1+
[2021-04-20 07:06] VITALS: BP 170/74
--- NOTE | 2021-04-20 11:50 | EKG ---
[place] [address] [facility] [place] [address] ELECTROCARDIOGRAM REPORT Name: DONALDO DORSEY Vero Room #: 170-2 ADM IN .R.#: [id number] Admission: 04/20/21 Attend Phys: Mark Lee MD Discharge: Date of : 37 Report #: [id number] [facility] ED Test Date: 2021-04-20 Test Time: 05:37:23 Pat Name: DONALDO DORSEY Department: Room: 170 Gender: F Demo Event Specialist: PAGE : 1935 Requested By: Suus Reilly Order Number: [id number] MD: Manan Bo Measurements Intervals [place] Rate: 87 P: ND: QRS: 5 QRSD: 87 T: 45 QT: 372 QTc: 448 Interpretive Statements Artifact, NSR Ventricular premature complex Anterior infarct, old Baseline wander in lead(s) V4 Compared to ECG 12/25/2020 10:46:45 Ventricular premature complex(es) now present Sinus tachycardia no longer present Atrial premature complex(es) no longer present Myocardial infarct finding still present Electronically Signed On 04-20-2021 11:49:55 CDT by Manan Bo [email or web address] <ELECTRONICALLY SIGNED> By: Manan Bo MD, [facility] 04/20/21 1149 0537 0537 Manan Bo MD, [facility] /EPI
[2021-04-20 12:30] VITALS: BP 121/51
--- NOTE | 2021-04-20 13:21 | NUR ---
ADMISSION NOTE: pt received to room 206 from clinical lab clerk around 1230. Tele monitor placed. Admission hx & education provided. Documentation signed & in chart. Call light within reach. Daughter with pt.
[2021-04-20 15:25] VITALS: BP 120/64
[2021-04-20 16:33] VITALS: BP 108/55
[2021-04-20 19:45] VITALS: BP 118/64
[2021-04-21 00:42] VITALS: BP 127/55
[2021-04-21 04:22] VITALS: BP 124/72
[2021-04-21 07:00] VITALS: BP 132/65
[2021-04-21] MEDS ORDERED: CLOPIDOGREL75 MG PO (08:00)
[2021-04-21] MEDS ORDERED: ELIQUIS2.5 MG PO (08:46)
[2021-04-21 09:51] LABS: HEMOGLOBIN 11.3 gm/dL (12.0-15.0); MCH 40.6 pg (26.0-34.0); MCHC 33.3 g/dL (28.0-37.0); MCV 122.2 fL (80.0-100.0); RBC 2.78 mil/uL (4.20-5.00); RDW 16.9 % (10.5-14.5); WBC 7.2 thou/uL (4.0-11.0)
[2021-04-21 10:08] LABS: CALCIUM 8.8 mg/dL (8.5-10.1); CREATININE 0.9 mg/dL (0.6-1.0); POTASSIUM 3.9 mmol/L (3.5-5.1)
[2021-04-21 10:55] VITALS: BP 132/65
== END 2021-04-21 11:18 | disposition home or self-care (01) ==
LOC: ER 23:33 → 2N 04-20 07:03 → EROBS 04-20 07:03 → 2N 04-20 07:03
PROVIDERS: Emergency Medicine; Nurse Practitioner Adult Health; ADMIT Family Medicine; ATTEND Family Medicine
DX: I70.222 Atherosclerosis of native arteries of extremities with rest pain, left leg (principal); I70.1 Atherosclerosis of renal artery; I73.89 Other specified peripheral vascular diseases; I48.91 Unspecified atrial fibrillation; M81.0 Age-related osteoporosis without current pathological fracture; I25.10 Atherosclerotic heart disease of native coronary artery without angina pectoris; G45.1 Carotid artery syndrome (hemispheric); E78.00 Pure hypercholesterolemia, unspecified; E83.119 Hemochromatosis, unspecified; E88.01 Alpha-1-antitrypsin deficiency; D47.3 Essential (hemorrhagic) thrombocythemia; K31.84 Gastroparesis; Z79.01 Long term (current) use of anticoagulants; Z79.899 Other long term (current) drug therapy
CPT/HCPCS: 10081

== ENCOUNTER → 2021-04-19 | Outpatient (CLI) | payer OTHER, BC ==
[~2021-04-19] MED LIST changes: +CLOPIDOGREL75 MG PO; +ELIQUIS2.5 MG PO
[2021-04-19 14:00] VITALS: BP 138/58
--- NOTE | 2021-04-19 15:57 | NUR ---
PT HERE FOR WEEKLY PROLASTIN C INFUSION. REPORTED PAIN IN SECOND AND THIRD TOES ON LEFT FOOT. TOES DUSKY IN APPEARANCE WITH REDNESS NOTED AROUND NAILS. WARMED FOOT WITH A WARM BLANKET WHILE IN CLINIC. SPOKE TO THE NURSE AT DR SUAREZ'S OFFICE WHO SUGGESTED THE PT STOP BY FOR OFFICE HOURS IN THE MORNING. NO OTHER NEW SYMPTOMS TO REPORT. REMAINS ON 2.0 LITERS O2. PT TOLERATED INFUSION WITH NO COMPLICATIONS. LEFT UNIT IN STABLE CONDITION. TO RETURN NEXT WEEK.
== END ==
LOC: OPONC 11:38
DX: E88.01 Alpha-1-antitrypsin deficiency (principal)
CPT/HCPCS: 95000

== ENCOUNTER → 2021-04-25 | Outpatient (CLI) | payer OTHER, BC ==
[~2021-04-25] MED LIST changes: +CLOPIDOGREL75 MG PO; +ELIQUIS2.5 MG PO
== END ==
LOC: SJCVCIMAG 08:26
PROVIDERS: ATTEND Nuclear Medicine Nuclear Cardiology
DX: I70.202 Unspecified atherosclerosis of native arteries of extremities, left leg (principal); M79.605 Pain in left leg; Z79.899 Other long term (current) drug therapy

== ENCOUNTER → 2021-04-26 | Outpatient (CLI) | payer OTHER, BC ==
[2021-04-26 13:37] VITALS: BP 137/56
--- NOTE | 2021-04-26 14:20 | NUR ---
HERE FOR WEEKLY PROLASTIN C INFUSION. REPORTS FEELING WEAK SINCE HOSPITAL STAY LAST WEEK. STILL HAVING SOME PAIN LEFT TOES, RATES AT A 5/10, TAKING IBUPROFEN FOR THIS. SAW DR. SUAREZ SATURDAY THEN HAD A VISIT WITH DR. HUFF AND ULTRASOUND OF HER LEFT FOOT YESTERDAY. COLOR MUCH BETTER, MORE RED IN NATURE ON TOP OF FOOT, SLIGHTLY DUSKY COLORED ON BOTTOMS OF TOES BUT NO LONGER HAS A DUSKY LOOKING FOOT. SLIGHT EDEMA NOTED WELL. PT STATES SHE HAD MISSED A FEW DAYS OF HER WATER PILL AND WILL RESUME THAT AND HAS BEEN INSTRUCTED TO KEEP HER FEET ELEVATED. TOLERATED TODAY'S INFUSION WITHOUT INCIDENT. DISMISSED IN STABLE CONDITION. SCHEDULED TO RETURN AGAIN IN ONE WEEK.
== END ==
LOC: OPONC 11:26
DX: E88.01 Alpha-1-antitrypsin deficiency (principal)
CPT/HCPCS: 95000

== ENCOUNTER → 2021-05-03 | Outpatient (CLI) | payer OTHER, BC ==
[2021-05-03 13:15] VITALS: BP 122/51
--- NOTE | 2021-05-03 13:50 | NUR ---
HERE FOR WEEKLY PROLASTIN C INFUSION. REPORTS LUNG-WHITNEY SHE IS FEELING THE SAME, STILL HAS DYSPNEA ON EXERTION, USES O2 AT 2L, NO COUGH OR SPUTUM NOTED. DOES HAVE SLIGHT EXPIRATORY RHONCHI BOTH MOREL. STILL HAVING TROUBLE WITH HER LEFT FOOT EVEN POST STENT. LEFT 2ND TOE IS DUSKY. BALL OF FOOT IS DUSKY. RATES PAIN AT A 5 AT REST BUT NO LONGER THROBBING, HURTS MORE WHEN SHE WALKS. ALSO C/O INCREASE IN NEUROPATHY BILAT FEET AND HANDS. BILAT LE EDEMATOUS, L>R AT 2+. PT STATES SHE HAS NOT BEEN TAKING HER WATER PILL EVERY DAY. STATES SHE IS STILL ON HER BLOOD THINNERS PRESCRIBED. ENCOURAGED PT TO CALL DR. SUAREZ TO GET ADVICE ABOUT THAT LEFT FOOT. STATES SHE WILL GO INTO THE WALK-IN CLINIC IN THE MORNING. TOLERATED TODAY'S INFUSION WITHOUT INCIDENT. DISMISSED IN STABLE CONDITION.
== END ==
LOC: OPONC 14:07
DX: E88.01 Alpha-1-antitrypsin deficiency (principal)
CPT/HCPCS: 95000

== ENCOUNTER → 2021-05-08 | Outpatient (CLI) | payer OTHER, BC | LOC: SJCVCIMAG 11:34 | PROVIDERS: ATTEND Nuclear Medicine Nuclear Cardiology | DX: I70.202 Unspecified atherosclerosis of native arteries of extremities, left leg (principal); I10 Essential (primary) hypertension; I71.4 Abdominal aortic aneurysm, without rupture; I77.9 Disorder of arteries and arterioles, unspecified; J44.9 Chronic obstructive pulmonary disease, unspecified; M81.0 Age-related osteoporosis without current pathological fracture; E78.5 Hyperlipidemia, unspecified; Z79.899 Other long term (current) drug therapy ==

== ENCOUNTER → 2021-05-10 | Outpatient (CLI) | payer OTHER, BC ==
[2021-05-10 14:15] VITALS: BP 109/51
--- NOTE | 2021-05-10 14:45 | NUR ---
HERE FOR WEEKLY PROLASTIN C INFUSION. REPORTS LUNGS STABLE, NO COUGH OR SPUTUM, USING O2 AT 2L, STILL HAS DYSPNEA WITH ANY EXERTION. CONTINUES TO HAVE ISSUES WITH TOES ON LEFT FOOT. STATES SAW DR. SUAREZ AGAIN LAST WEEK THEN DR. BRANCH ON SATURDAY. HAD ANOTHER ULTRASOUND. PT STATES DR. BRANCH SAYS THERE IS NOTHING MORE THAT CAN BE DONE. REPORTS TOES REMAIN DUSKY, PAINFUL WITH SOME THROBBING. NEUROPATHY TROUBLES HER BOTH FEET AND HANDS BILATERALLY. VERY DISCOURAGED AND CONCERNED ABOUT THIS. PLANS TO SEE A VASCULAR DOCTOR AT [facility]--DAUGHTERS ARE HELPING WITH THIS ARRANGMENT. ALSO HAS AN APPT WITH HER [facility] CENTER SPECIALIST AT [facility] THIS MONTH. PT TOLERATED TODAY'S INFUSION WITHOUT INCIDENT. DISMISSED IN STABLE CONDITION. SCHEDULED TO RETURN AGAIN NEXT WEEK ON SAT.
== END ==
LOC: OPONC 14:10
DX: E88.01 Alpha-1-antitrypsin deficiency (principal)
CPT/HCPCS: 95000

== ENCOUNTER → 2021-05-18 | Outpatient (CLI) | payer OTHER, BC ==
[2021-05-18 16:09] VITALS: BP 120/69
--- NOTE | 2021-05-18 16:27 | NUR ---
PT HERE FOR WEEKLY PROLASTIN C INFUSION. WAS UNABLE TO MAKE IT ON SATURDAY BECAUSE SHE WAS IN THE HOSPITAL BEING EVALUATED FOR WORSENING PAIN R/T PVD. RELEASED YESTERDAY WITH NO CHANGES IN MEDICATIONS OR PLANS FOR FURTHER INTERVENTION. CURRENT PAIN IN BILATERAL FEET RATED AT A 6. WILL CONTINUE TO MONITOR. NO OTHER NEW SYMPTOMS, FALLS, OR PAIN TO REPORT. IV PLACED IN R HAND BY ANTONIO FROM [facility]. PT TOLERATED INFUSION WITH NO COMPLICATIONS. LEFT UNIT IN STABLE CONDITION VIA WHEELCHAIR. SCHEDULED TO RETURN NEXT SATURDAY.
== END ==
LOC: OPONC 13:08
DX: E88.01 Alpha-1-antitrypsin deficiency (principal)
CPT/HCPCS: 95000

== ENCOUNTER → 2021-05-24 | Outpatient (CLI) | payer OTHER, BC ==
[2021-05-24 13:35] VITALS: BP 104/32
--- NOTE | 2021-05-24 14:46 | NUR ---
PT HERE FOR WEEKLY PROLASTIN C INFUSION. NO NEW SYMPTOMS TO REPORT. CONTINUES TO HAVE PAIN AND DISCOLORATION IN FEET R/T PVD. PT SET UP CONSULT WITH WOUND CARE CLINIC WHO CAME TO SPEAK TO HER AND GIVE HER PAPERWORK WHILE SHE WAS HERE. PT REMAINS ON 2L O2. VSS. IV STARTED IN L FOREARM. PT TOLERATED INFUSION WITH NO COMPLICATIONS. SCHEDULED TO RETURN NEXT WEEK. IV DISCONTINUED. PT LEFT UNIT IN STABLE CONDITION VIA WHEELCHAIR.
== END ==
LOC: OPONC 14:36
DX: E88.01 Alpha-1-antitrypsin deficiency (principal)
CPT/HCPCS: 95000

== ENCOUNTER → 2021-05-31 | Outpatient (CLI) | payer OTHER, BC ==
[~2021-05-31] MED LIST changes: +TRAMADOL 50 MG50 MG PO
== END ==
LOC: HYPER 14:46
PROVIDERS: ATTEND Emergency Medicine
DX: I70.245 Atherosclerosis of native arteries of left leg with ulceration of other part of foot (principal); L97.522 Non-pressure chronic ulcer of other part of left foot with fat layer exposed; I87.2 Venous insufficiency (chronic) (peripheral); R60.1 Generalized edema; G99.0 Autonomic neuropathy in diseases classified elsewhere; E78.5 Hyperlipidemia, unspecified; I27.20 Pulmonary hypertension, unspecified; I25.10 Atherosclerotic heart disease of native coronary artery without angina pectoris; I10 Essential (primary) hypertension; J44.9 Chronic obstructive pulmonary disease, unspecified; K21.9 Gastro-esophageal reflux disease without esophagitis; M81.0 Age-related osteoporosis without current pathological fracture; F41.9 Anxiety disorder, unspecified; Z95.828 Presence of other vascular implants and grafts

== ENCOUNTER → 2021-05-31 | Outpatient (CLI) | payer OTHER, BC ==
[2021-05-31 14:10] VITALS: BP 141/61
--- NOTE | 2021-05-31 15:13 | NUR ---
HERE TODAY FOR HER WEEKLY PROLASTIN C INFUSION. REPORTS DOING WELL FROM LUNG PERSPECTIVE. STILL HAVING SUCH PAIN AND ISSUES WITH THE CIRCULATION IN HER FEET, PRIMARILY LEFT FOOT. HAS BEEN TO [facility] FOR 2ND OPINION AND TO HER MEMS ENGINEER. STATES SHE RECOMMENDED GOING TO SEE A VASCULAR SPECIALIST AND PT HAS AN APPT SET UP FOR OF NEXT WEEK FOR AN ANGIOPLASTY OF THE LEFT FOOT. PT SO CONCERNED ABOUT THE POSSIBILITY OF LOSING PART OR ALL OF HER FOOT. TOLERATED TODAY'S INFUSION WITHOUT INCIDENT. TAKEN TO THE WOUND CLINIC FOR HER F/U APPT WITH DR. JUAREZ. WILL PICK PT UP AFTER THAT WOUND CARE APPT. PT IS SCHEDULED TO RETURN HERE NEXT WEEK ON SAT.
== END ==
LOC: OPONC 15:15
DX: E88.01 Alpha-1-antitrypsin deficiency (principal)
CPT/HCPCS: 95000

== ENCOUNTER → 2021-06-07 | Outpatient (CLI) | payer OTHER, BC | LOC: HYPER 15:20 | PROVIDERS: ATTEND Emergency Medicine | DX: I70.245 Atherosclerosis of native arteries of left leg with ulceration of other part of foot (principal); L97.522 Non-pressure chronic ulcer of other part of left foot with fat layer exposed; I87.2 Venous insufficiency (chronic) (peripheral); R60.1 Generalized edema; G99.0 Autonomic neuropathy in diseases classified elsewhere; E78.5 Hyperlipidemia, unspecified; I27.20 Pulmonary hypertension, unspecified; I25.10 Atherosclerotic heart disease of native coronary artery without angina pectoris; I10 Essential (primary) hypertension; J44.9 Chronic obstructive pulmonary disease, unspecified; K21.9 Gastro-esophageal reflux disease without esophagitis; M81.0 Age-related osteoporosis without current pathological fracture; F41.9 Anxiety disorder, unspecified; Z95.828 Presence of other vascular implants and grafts ==

== ENCOUNTER → 2021-06-07 | Outpatient (CLI) | payer OTHER, BC ==
--- NOTE | 2021-06-07 15:15 | NUR ---
HERE FOR WEEKLY PROLASTIN C INFUSION. CONTINUES TO DO WELL FROM A PULMONARY PERSPECTIVE; NO COUGH, NO MUCOUS, BASELINE WITH DYSPNEA ON EXERTION, USES O2 AT 2L. DID HAVE HER ANGIOPLASTY OF THE LEFT FOOT YESTERDAY. GROIN SITE SOFT. FOOT LESS DUSKY IN APPEARANCE. 3+ LLE EDEMA. PAIN IS STILL AT A 5. PLAN IS TO HAVE AN ANGIOPLASY ON THE RIGHT NEXT WEEK ON THE . DAUGHTER, AURORA, STAYED WITH PATIENT LAST NIGHT AND IS HERE WITH HER TODAY. TOLERATED INFUSION WITHOUT INCIDENT. TAKEN TO THE WOUND CLINIC POST INFUSION FOR [address] JUAREZ. SCHEDULED TO RETURN HERE NEXT WEEK ON SAT.
== END ==
LOC: OPONC 10:35
DX: E88.01 Alpha-1-antitrypsin deficiency (principal)
CPT/HCPCS: 95000

== ENCOUNTER → 2021-06-14 | Outpatient (CLI) | payer OTHER, BC | LOC: HYPER 10:02 | PROVIDERS: ATTEND Emergency Medicine | DX: I70.245 Atherosclerosis of native arteries of left leg with ulceration of other part of foot (principal); L97.522 Non-pressure chronic ulcer of other part of left foot with fat layer exposed; I87.2 Venous insufficiency (chronic) (peripheral); R60.1 Generalized edema; G99.0 Autonomic neuropathy in diseases classified elsewhere; E88.01 Alpha-1-antitrypsin deficiency; E78.5 Hyperlipidemia, unspecified; I27.20 Pulmonary hypertension, unspecified; I25.10 Atherosclerotic heart disease of native coronary artery without angina pectoris; I10 Essential (primary) hypertension; J44.9 Chronic obstructive pulmonary disease, unspecified; K21.9 Gastro-esophageal reflux disease without esophagitis; M81.0 Age-related osteoporosis without current pathological fracture; F41.9 Anxiety disorder, unspecified; Z95.828 Presence of other vascular implants and grafts ==

== ENCOUNTER → 2021-06-14 | Outpatient (CLI) | payer OTHER, BC ==
[2021-06-14 14:46] VITALS: BP 131/54
--- NOTE | 2021-06-14 15:15 | NUR ---
HERE FOR WEEKLY PROLASTIN C INFUSION. PULMONARY STATUS STABLE, LUNGS CLEAR, NO COUGH OR MUCOUS PRODUCTION ISSUES. USES O2 AT 2L AND IS AT BASELINE WITH HER EXERTIONAL DYSPNEA. LLE TIGHT, SKIN SHINY WITH EDEMA, TENDER TO TOUCH, PAINFUL TO PATIENT WHEN SHE MOVES. MORE EDEMATOUS THAN LAST WEEK. PT WAS TOLD BY PHYSICIAN THAT SHE SHOULD NOT APPLY COMPRESSION LAST WEEK D/T THE VASCULAR SURGERY. SEES THAT SURGEON TOMORROW AND DR. JUAREZ WITH THE WOUND CARE CLINIC TODAY. WILL DEFER TO THOSE PHYSICIANS TO ASSESS AND ADVISE. PT HOPES TO HAVE ANGIOPLASTY OF RLE/FOOT TOMORROW. TOLERATED TODAY'S INFUSION WITHOUT INCIDENT. DISMISSED IN STABLE CONDITION TO THE WOUND CARE CLINIC.
== END ==
LOC: OPONC 14:18
DX: E88.01 Alpha-1-antitrypsin deficiency (principal)
CPT/HCPCS: 95000

== ENCOUNTER → 2021-06-21 | Outpatient (CLI) | payer OTHER, BC ==
--- NOTE | 2021-06-21 14:45 | NUR ---
HERE FOR WEEKLY PROLASTIN C INFUSION. REPORTS DOING WELL FROM A LUNG STANDPOINT. STILL HAS EDEMA LLE BUT STATES PAIN IS NOW GONE AND WOUND IS HEALING WELL. HAS LIGHT COMPRESSION TUBE ON WHICH WAS PROVIDED BY THE WOUND CARE CLINIC. AWAITING PROCEDURE TO OEPN CIRCULATION TO THE RIGHT LEG. PT STATES THE ANGIOPLASTY FOR THE RT FOOT WAS DELAYED D/T PROXIMAL BLOCKAGE. SEEING A VASCULR SURGEON ABOUT THAT. TOLERATED TODAY'S INFUSION WITHOUT INCIDENT. DISMISSED IN STABLE CONDITION. SCHEDULED TO RETURN AGAIN IN ONE WEEK.
== END ==
LOC: OPONC 10:34
DX: E88.01 Alpha-1-antitrypsin deficiency (principal)
CPT/HCPCS: 95000

== ENCOUNTER → 2021-06-21 | Outpatient (CLI) | payer OTHER, BC | LOC: HYPER 11:36 | PROVIDERS: ATTEND Emergency Medicine | DX: I70.245 Atherosclerosis of native arteries of left leg with ulceration of other part of foot (principal); L97.522 Non-pressure chronic ulcer of other part of left foot with fat layer exposed; I87.2 Venous insufficiency (chronic) (peripheral); R60.1 Generalized edema; G99.0 Autonomic neuropathy in diseases classified elsewhere; E88.01 Alpha-1-antitrypsin deficiency; E78.5 Hyperlipidemia, unspecified; I27.20 Pulmonary hypertension, unspecified; I25.10 Atherosclerotic heart disease of native coronary artery without angina pectoris; I10 Essential (primary) hypertension; J44.9 Chronic obstructive pulmonary disease, unspecified; K21.9 Gastro-esophageal reflux disease without esophagitis; M81.0 Age-related osteoporosis without current pathological fracture; F41.9 Anxiety disorder, unspecified; Z95.828 Presence of other vascular implants and grafts ==

== ENCOUNTER → 2021-06-28 | Outpatient (CLI) | payer OTHER, BC ==
[2021-06-28 14:10] VITALS: BP 120/61
--- NOTE | 2021-06-28 15:22 | NUR ---
PT HERE FOR WEEKLY PROLASTIN C INFUSION. VSS AND LUNG SOUNDS CLEAR. STATES HER BREATHING HAS BEEN DOING WELL. STILL HAVING PAIN IN BLE. SEEING WOUND CARE FOR WOUND ON L FOOT, WITH IMPROVEMENT. HAS PROCEDURE PLANNED TO CLEAR BLOCKAGE IN R LEG. IV STARTED IN L FOREARM. PT TOLERATED INFUSION WITH NO COMPLICATIONS. IV D/C'ED. PT LEFT UNIT IN STABLE CONDITION. SCHEDULED TO RETURN IN ONE WEEK.
== END ==
LOC: OPONC 08:20
DX: E88.01 Alpha-1-antitrypsin deficiency (principal)
CPT/HCPCS: 95000

== ENCOUNTER → 2021-07-05 | Outpatient (CLI) | payer OTHER, BC ==
[2021-07-05 13:57] VITALS: BP 131/60
== END ==
LOC: OPONC 12:25
DX: E88.01 Alpha-1-antitrypsin deficiency (principal)
CPT/HCPCS: 95000

== ENCOUNTER → 2021-07-05 | Outpatient (CLI) | payer OTHER, BC | LOC: HYPER 14:40 | PROVIDERS: ATTEND Emergency Medicine | DX: I70.245 Atherosclerosis of native arteries of left leg with ulceration of other part of foot (principal); L97.522 Non-pressure chronic ulcer of other part of left foot with fat layer exposed; I87.2 Venous insufficiency (chronic) (peripheral); R60.1 Generalized edema; G99.0 Autonomic neuropathy in diseases classified elsewhere; E88.01 Alpha-1-antitrypsin deficiency; I25.10 Atherosclerotic heart disease of native coronary artery without angina pectoris; J44.9 Chronic obstructive pulmonary disease, unspecified; I10 Essential (primary) hypertension; E78.5 Hyperlipidemia, unspecified; M81.0 Age-related osteoporosis without current pathological fracture; I27.20 Pulmonary hypertension, unspecified; F41.9 Anxiety disorder, unspecified; Z95.828 Presence of other vascular implants and grafts; Z79.899 Other long term (current) drug therapy; Z99.81 Dependence on supplemental oxygen ==

== ENCOUNTER → 2021-07-11 | Outpatient (CLI) | payer OTHER, BC ==
[2021-07-11 14:20] VITALS: BP 121/60
--- NOTE | 2021-07-11 17:50 | NUR ---
HERE FOR WEEKLY PROLASTIN C INFUSION. REPORTS DOING WELL FROM PULMONARY STANDPOINT. LEFT LEG IS HAS MUCH LESS EDEMA THIS WEEK BUT CALF HURTS WHEN SHE GETS UP TO WALK. HAS BEEN TAKING HER PRESCRIBED DIURETIC DAILY FOR THE PAST WEEK AND TRYING TO ALTERNATELY ELEVATE FEET OR GET UP AND WALK TO HELP WITH THE EDEMA. IS AWAITING CALL FROM DR. PENA'S OFFICE TO SET UP VASCULAR PROCEDURE FOR RIGHT LEG. TOLERATED TODAY'S INFUSION WITHOUT INCIDENT. DISMISSED IN STABLE CONDITION. SCHEDULED TO RETURN AGAIN SAT OF NEXT WEEK.
== END ==
LOC: OPONC 12:00
DX: E88.01 Alpha-1-antitrypsin deficiency (principal)
CPT/HCPCS: 95000

== ENCOUNTER → 2021-07-17 | Outpatient (CLI) | payer OTHER, BC ==
[2021-07-17 13:09] VITALS: BP 130/60
--- NOTE | 2021-07-17 13:45 | NUR ---
HERE FOR WEEKLY PROLASTIN C INFUSION. CAME A DAY EARLY D/T UPCOMING SURGERY SCHEDULED FOR SAT WITH DR. PENA TO OPEN CIRCULATION TO RIGHT LEG. PT IS VERY CONCERNED THAT SHE WILL NOT BE STRONG ENOUGH FOR SURGERY. STILL HAVING SWELLING LEFT LEG POST STENT AND ANGIOPLASTY; LEG IS PAINFUL WITH ACTIVITY, NO PAIN AT REST. SEEING DR. JUAREZ TOMORROW. ASSURED PT THAT SHE CAN SPEAK WITH HIM TO GET HIS FEEL FOR BEST TIMING FOR SURGERY-- SOON POSSIBLE VS WAITING TO SEE IF SHE CAN GAIN SOME STRENGTH. FAIRLY STABLE FROM A PULMONARY STANDPOINT ALTHO SOME FAINT EXPIRATORY RHONCHI NOTED BILAT. PT USING O2 AT 2L AND REPORTS INCREASING DYSPNEA WITH EXERTION. NO COUGH OR SPUTUM PRODUCTION NOTED. PT TOLERATED INFUSION WITHOUT INCIDENT. EMOTIONAL SUPPORT OFFERED AND PT REMINDED THAT SHE CAN ALWAYS ASK ABOUT POSTPONING THE SURGERY IF SHE DOES NOT FEEL READY. SHE DOES HAVE A PREOP APPT AT [facility] TOMORROW AND STATES SHE WILL SEE THE ANESTHESIOLOGIST, ONE MORE PHYSICIAN WHO CAN OFFER ADVICE REGARDING HER ABILITY TO TOLERATE SURGERY. DISMISSED IN STABLE CONDITION. SCHEDULED TO RETURN AGAIN WED OF NEXT WEEK.
== END ==
LOC: OPONC 10:09
DX: E88.01 Alpha-1-antitrypsin deficiency (principal)
CPT/HCPCS: 95000

== ENCOUNTER → 2021-07-18 | Outpatient (CLI) | payer OTHER, BC | LOC: HYPER 07:45 | PROVIDERS: ATTEND Emergency Medicine | DX: I70.245 Atherosclerosis of native arteries of left leg with ulceration of other part of foot (principal); L97.522 Non-pressure chronic ulcer of other part of left foot with fat layer exposed; I87.2 Venous insufficiency (chronic) (peripheral); R60.1 Generalized edema; G99.0 Autonomic neuropathy in diseases classified elsewhere; E88.01 Alpha-1-antitrypsin deficiency; I25.10 Atherosclerotic heart disease of native coronary artery without angina pectoris; J44.9 Chronic obstructive pulmonary disease, unspecified; E78.5 Hyperlipidemia, unspecified; M81.0 Age-related osteoporosis without current pathological fracture; I27.20 Pulmonary hypertension, unspecified; F41.9 Anxiety disorder, unspecified; Z79.01 Long term (current) use of anticoagulants; Z79.899 Other long term (current) drug therapy ==

== ENCOUNTER → 2021-07-26 | Outpatient (CLI) | payer OTHER, BC ==
[2021-07-26 14:00] VITALS: BP 114/64
--- NOTE | 2021-07-26 18:05 | NUR ---
HERE FOR WEEKLY PROLASTIN C INFUSION. HAD HER FEMORAL ARTERY PROCEDURE LAST WEEK ON SAT AT [facility] WITH DR. PENA. STILL HAS ORIGINAL SURGICAL DRESSING AND WOUND VAC TYPE DEVICE ON THIS. PT HAS HER F/U APPT SET WITH HIM AND STATES SHE WAS INSTRUCTED TO REMOVAL THE DRESSING PUMP WHEN IT BEEPS WHICH IS HAS NOT INDICATED REMOVAL TIME YET. HAS PAIN IN LEFT LEG, RATES AT A 4. STILL HAS PAIN LLE WHEN WALKING. BOTH LEGS ARE EDEMATOUS, LEFT MUCH MORE SO THAN RIGHT. HAS COMPRESSION STOCKING ON LEFT LEG. STATES IS TAKING HER DIURETIC DAILY. BOTH FEET HAVE GOOD COLOR, LEFT FOOT IS A COOLER THAN RIGHT. RIGHT FOOT IS WARM. PT STATES THAT SHE IS RECEIVING HOME HEALTH SERVICES WITH NURSE/PT/OT. [facility] DUE OUT TOMORROW FOR A VISIT. TOLERATED INFUSION TODAY WITHOUT INCIDENT. STATES LUNGS ARE STILL FUNCTIONING QUITE WELL FOR HER. USING O2 AT 2L. DISMISSED POST INFUSION IN STABLE CONDITION. SCHEDULED TO RETURN AGAIN NEXT WEEK ON SAT.
== END ==
LOC: OPONC 10:25
DX: E88.01 Alpha-1-antitrypsin deficiency (principal)
CPT/HCPCS: 95000

== ENCOUNTER → 2021-07-31 | Outpatient (CLI) | payer OTHER, BC | LOC: SJCVCIMAG 12:46 | PROVIDERS: ATTEND Internal Medicine Cardiovascular Disease | DX: R94.31 Abnormal electrocardiogram [ECG] [EKG] (principal); I08.3 Combined rheumatic disorders of mitral, aortic and tricuspid valves; I25.2 Old myocardial infarction; I11.9 Hypertensive heart disease without heart failure; R93.1 Abnormal findings on diagnostic imaging of heart and coronary circulation; I27.20 Pulmonary hypertension, unspecified; I73.9 Peripheral vascular disease, unspecified; I77.9 Disorder of arteries and arterioles, unspecified; E88.09 Other disorders of plasma-protein metabolism, not elsewhere classified; I48.0 Paroxysmal atrial fibrillation; D68.59 Other primary thrombophilia; E78.2 Mixed hyperlipidemia; Z79.899 Other long term (current) drug therapy ==

== ENCOUNTER → 2021-08-03 | Outpatient (CLI) | payer OTHER, BC ==
[2021-08-03 14:12] VITALS: BP 112/50
--- NOTE | 2021-08-03 14:50 | NUR ---
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 LOOKING SO MUCH BETTER/STRONGER THAN LAST FEW VISITS. BILAT LE EDEMA IS MUCH IMPROVED. PT STATES PAIN IS BETTER, RATES AT ABOUT A 3 IN LEGS WHEN WALKING. STATES TOES ARE BACK TO LOOKING NORMAL AGAIN. WALKING MORE, DOING HOME OT/PT WITH HOME HEALTH. GETTING OUT TO SEE ALL OF HER PHYSICIANS FOR F/U APPTS INCLUDING WOUND CARE AND HER ONCOLOGIST. STILL DYSPNEIC WITH EXERTION BUT AT BASELINE. USES O2 AT 2L. WAS ABLE TO ENJOY HER FAMILY FOR THE HOLIDAYS. TOLERATED TODAY'S INFUSION WITHOUT INCIDENT. DISMISSED IN STABLE CONDITION. SCHEDULED TO RETURN AGAIN ON SATURDAY NEXT WEEK.
== END ==
LOC: OPONC 08-02 10:28
DX: E88.01 Alpha-1-antitrypsin deficiency (principal)
CPT/HCPCS: 95000

== ENCOUNTER → 2021-08-09 | Outpatient (CLI) | payer OTHER, BC ==
[2021-08-09 14:10] VITALS: BP 112/61
--- NOTE | 2021-08-09 14:35 | NUR ---
HERE FOR WEEKLY PROLASTIN C INFUSION. REPORTS DOING WELL, NO CHANGES FROM LUNG STANDPOINT. STILL USING 02 AT 2L. LESS EDEMA IN LEGS, LESS PAIN, STATES COLOR IN FEET BACK TO NORMAL. WEIGHT DOWN TO 101#. STATES TRYING TO EAT WELL, ADDING ENSURE PUDDING, CRACKERS WITH CHEESE, ETC FOR PROTEIN. CERTAINLY SOME OF THE WEIGHT LOSS IS R/T GETTING THE EXCESS FLUID OFF OF LEGS. STATES HOME HEALTH RN, OT AND PT COMING TO THE HOUSE. SEES DR. JUAREZ IN THE WOUND CLINIC TODAY FOLLOWING THIS APPT. TOLERATED INFUSION WITHOUT INCIDENT. DISMISSED IN STABLE CONDITION. SCHEDULED TO RETURN AGAIN IN ONE WEEK.
== END ==
LOC: OPONC 13:48
DX: E88.01 Alpha-1-antitrypsin deficiency (principal)
CPT/HCPCS: 95000

== ENCOUNTER → 2021-08-09 | Outpatient (CLI) | payer OTHER, BC | LOC: HYPER 14:34 | PROVIDERS: ATTEND Emergency Medicine | DX: I70.245 Atherosclerosis of native arteries of left leg with ulceration of other part of foot (principal); L97.522 Non-pressure chronic ulcer of other part of left foot with fat layer exposed; I87.2 Venous insufficiency (chronic) (peripheral); R60.1 Generalized edema; G99.0 Autonomic neuropathy in diseases classified elsewhere; E88.01 Alpha-1-antitrypsin deficiency; I25.10 Atherosclerotic heart disease of native coronary artery without angina pectoris; J44.9 Chronic obstructive pulmonary disease, unspecified; I10 Essential (primary) hypertension; E78.5 Hyperlipidemia, unspecified; M81.0 Age-related osteoporosis without current pathological fracture; I27.20 Pulmonary hypertension, unspecified; F41.9 Anxiety disorder, unspecified; Z79.01 Long term (current) use of anticoagulants; Z79.899 Other long term (current) drug therapy; Z99.81 Dependence on supplemental oxygen ==

== ENCOUNTER → 2021-08-16 | Outpatient (CLI) | payer OTHER, BC ==
[2021-08-16 14:32] VITALS: BP 118/73
[2021-08-16 16:02] VITALS: BP 118/73
--- NOTE | 2021-08-16 16:07 | NUR ---
HERE FOR WEEKLY INFUSION WITH . PERIPHERAL IV STARTED AND PROLASTIN INFUSED WITHOUT ADVERSE REACTION. NO NEW COMPLAINTS. DC IN WC TO HOME. TO RETURN IN ONE WEEK FOR NEXT INFUSION.
== END ==
LOC: OPONC 12:00
DX: E88.01 Alpha-1-antitrypsin deficiency (principal)
CPT/HCPCS: 95000

== ENCOUNTER → 2021-08-24 | Outpatient (CLI) | payer OTHER, BC ==
[2021-08-24 14:15] VITALS: BP 104/38
--- NOTE | 2021-08-24 14:56 | NUR ---
HERE FOR WEEKLY PROLASTIN C INFUSION. REPORTS BOTH LEGS/FEET DOING WELL, NO PAIN, MINIMAL SWELLING, COLORING GOOD ON BOTH. VERY PLEASED WITH THIS. DOES CONTINUE TO BE WEAK POST ALL THE RECENT PROCEDURES. STILL WORKING WITH PT TO GAIN STRENGTH, EATING ENSURE PUDDING (HAS LOST WEIGHT). USES O2 AT 2L ALL THE TIME AND STRUGGLES WITH EXERTIONAL DYSPNEA, ONGOING. LUNGS SOUND CLEAR. TOLERATED TODAY'S INFUSION WITHOUT INCIDENT. DISMISSED IN STABLE CONDITION. SCHEDULED TO RETURN AGAIN IN ONE WEEK.
== END ==
LOC: OPONC 11:01
DX: E88.01 Alpha-1-antitrypsin deficiency (principal)
CPT/HCPCS: 95000

== ENCOUNTER → 2021-08-30 | Outpatient (CLI) | payer OTHER, BC ==
[2021-08-30 14:00] VITALS: BP 150/76
--- NOTE | 2021-08-30 14:40 | NUR ---
HERE FOR WEEKLY PROLASTIN C INFUSION. REPORTS DOING OK IN GENERAL. STILL DYSPNEIC WITH ANY ACTIVITY, USES O2 AT 2L, FEELS SHE IS AT BASELINE, NO MUCOUS OR COUGH ISSUES. BILAT LE EDEMA RESOLVED, NO LEG PAIN. NO FALLS THIS WEEK. STILL WEAK. ENCOURAGED ACTIVITY TOLERATED AND GOOD NUTRITION. TOLERATED INFUSION TODAY WITHOUT INCIDENT. DIMISSED IN STABLE CONDITION. WILL RETURN AGAIN IN ONE WEEK.
== END ==
LOC: OPONC 09:42
DX: E88.01 Alpha-1-antitrypsin deficiency (principal)
CPT/HCPCS: 95000

== ENCOUNTER → 2021-09-06 | Outpatient (CLI) | payer OTHER, BC ==
[2021-09-06 10:40] VITALS: BP 121/58
--- NOTE | 2021-09-06 11:45 | NUR ---
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 REPORTS DOING WELL ALL-IN-ALL. LUNG STATUS AT BASELINE, USES O2 2L, NO MUCOUS PRODUCTION NOTED, NO COUGH. IS C/O INGROWN TOENAIL, GREAT TOE LEFT FOOT. 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 DISAPPOINTED HER WOUND CARE VISIT TODAY WAS CANCELED D/T WEATHER. HAS THAT RESCHEDULED FOR NEXT WEEK ON SATURDAY. TOLERATED TODAY'S INFUSION WITHOUT INCIDENT. DISMISSED IN STABLE CONDITION. SCHEDULED TO RETURN IN ONE WEEK.
== END ==
LOC: OPONC 12:37
DX: E88.01 Alpha-1-antitrypsin deficiency (principal)
CPT/HCPCS: 95000

== ENCOUNTER → 2021-09-11 | Outpatient (CLI) | payer OTHER, BC | LOC: HYPER 08:09 | PROVIDERS: ATTEND Emergency Medicine | DX: I70.245 Atherosclerosis of native arteries of left leg with ulceration of other part of foot (principal); L97.522 Non-pressure chronic ulcer of other part of left foot with fat layer exposed; I87.2 Venous insufficiency (chronic) (peripheral); R60.1 Generalized edema; G99.0 Autonomic neuropathy in diseases classified elsewhere; E88.01 Alpha-1-antitrypsin deficiency; I25.10 Atherosclerotic heart disease of native coronary artery without angina pectoris; J44.9 Chronic obstructive pulmonary disease, unspecified; E78.5 Hyperlipidemia, unspecified; M81.0 Age-related osteoporosis without current pathological fracture; I27.20 Pulmonary hypertension, unspecified; F41.9 Anxiety disorder, unspecified; Z95.828 Presence of other vascular implants and grafts; Z85.89 Personal history of malignant neoplasm of other organs and systems; Z79.899 Other long term (current) drug therapy; Z79.01 Long term (current) use of anticoagulants; Z98.890 Other specified postprocedural states ==

== ENCOUNTER → 2021-09-13 | Outpatient (CLI) | payer OTHER, BC ==
[2021-09-13 11:05] VITALS: BP 140/74
--- NOTE | 2021-09-13 11:21 | NUR ---
HERE FOR WEEKLY PROLASTIN C INFUSION. HAVING TROUBLE WITH CIRCULATION IN LEFT FOOT CAUSING A LOT OF PAIN AND SOME EDEMA IN LLE. GOING BACK TO SURGERY TOMORROW WITH ONE OF HER VASCULAR SURGEONS TO REPEAT A PROCEDURE TO OPEN CIRCULATION UP. PT MEANWHILE NOT MOVING AROUND MUCH D/T PAIN. HAVING TROUBLE WITH APPETITE AND EATING. APPEARS MUCH WEAKER. DENIES RECENT FALL.
--- NOTE | 2021-09-13 11:36 | NUR ---
COMPLETED PROLASTIN C INFUSION WITHOUT INCIDENT. PT SCHEDULED TO RETURN AGAIN IN ONE WEEK.
== END ==
LOC: OPONC 14:52
DX: E88.01 Alpha-1-antitrypsin deficiency (principal)
CPT/HCPCS: 95000